=== PATIENT | male | born 1945 | race Caucasian/White ===

== ENCOUNTER → 2018-04-07 09:48 | Outpatient (CLI) | payer MEDICARE, OTHER, SELFPAY ==
[2018-04-07 11:37] LABS: Add Manual Diff / Slide Review NO; Basophils Percent Auto 0.6 % (0-2); Eosinophils Percent Auto 3.8 % (2-4); Hematocrit 38.2 % (41-53); Hemoglobin 13.3 g/dL (13.5-17.5); Lymphocytes Percent Auto 17.3 % (25-40); Mean Corpuscular HGB Conc 34.9 % (30-36); Mean Corpuscular Hemoglobin 32.7 PG (26-34); Mean Corpuscular Volume 93.7 fL (80-100); Monocytes Percent Auto 12.1 % (3-14); Neutrophils Absolute Auto 3900 /uL (3000-5900); Neutrophils Percent Auto 66.2 % (50-75); Platelet Count 231 X10^3/uL (150-400); Red Blood Cell Count 4.07 X10^6/uL (4.5-5.9); Red Cell Distribution Width 12.9 % (11.6-14.8); White Blood Cell Count 5.8 X10^3/uL (4.5-11.0)
[2018-04-07 12:09] LABS: Alanine Aminotransferase 324 IU/L (21-72); Albumin 4.1 g/dL (3.5-5.0); Albumin Globulin Ratio 1.1 (1.0-2.8); Alkaline Phosphatase 44 U/L (38-126); Aspartate Aminotransferase 252 IU/L (17-59); BUN Creatinine Ratio 19.2 (6-22); Bilirubin Total 1.2 mg/dL (0.2-1.3); Blood Urea Nitrogen 23 mg/dL (9-20); Carbon Dioxide 28 mmol/L (22-32); Chloride 98 mmol/L (98-107); Estimated Glomerular Filt Rate 59.2 mL/min (>60); Globulin 3.6 g/dL (1.7-4.1); Glucose 97 mg/dL (80-110); HEMOLYSIS < 15 (0-50); Potassium 4.6 mmol/L (3.4-5.1); Sodium 135 mmol/L (137-145); Total Protein 7.7 g/dL (6.3-8.2)
[2018-04-07 12:53] LABS: Vitamin B12 695 pg/mL (239-931)
== END ==
PROVIDERS: Visit Provider Internal Medicine
DX: I10 Essential (primary) hypertension (principal); D51.0 Vitamin B12 deficiency anemia due to intrinsic factor deficiency
CPT/HCPCS: 36415; 80053; 82607; 85025

== ENCOUNTER → 2018-05-10 14:44 | Outpatient (CLI) | payer MEDICARE, OTHER, SELFPAY ==
[2018-05-10 15:38] LABS: HEMOLYSIS < 15 (0-50); Iron 129 ug/dL (49-181)
[2018-05-10 15:39] LABS: Alanine Aminotransferase 139 IU/L (21-72); Albumin 4.5 g/dL (3.5-5.0); Albumin Globulin Ratio 1.3 (1.0-2.8); Alkaline Phosphatase 50 U/L (38-126); Aspartate Aminotransferase 64 IU/L (17-59); Bilirubin Total 0.8 mg/dL (0.2-1.3); Blood Urea Nitrogen 19 mg/dL (9-20); Calcium 9.5 mg/dL (8.4-10.2); Carbon Dioxide 25 mmol/L (22-32); Chloride 99 mmol/L (98-107); Estimated Glomerular Filt Rate > 60.0 mL/min (>60); Globulin 3.6 g/dL (1.7-4.1); Glucose 110 mg/dL (80-110); HEMOLYSIS < 15 (0-50); Potassium 4.4 mmol/L (3.4-5.1); Sodium 136 mmol/L (137-145); Total Protein 8.1 g/dL (6.3-8.2)
[2018-05-10 15:51] LABS: Percent Iron Saturation 38 % (20-50); Total Iron Binding Capacity 336 ug/dL (261-462); Transferrin 264 mg/dL (206-381)
[2018-05-10 16:14] LABS: Ferritin 51.7 ng/mL (17.9-464)
[2018-05-10 19:09] LABS: Hep C Virus Ab w/Reflex Quant NEGATIVE s/c (NEGATIVE); Hepatitis B Surface Antigen NEGATIVE s/c (NEGATIVE)
[2018-05-12 13:51] LABS: Hepatitis A Ab Total Nonreactive (Nonreactive)
[2018-05-12 13:57] LABS: Hepatitis B Core Antibody Nonreactive (Nonreactive)
[2018-05-12 15:24] LABS: Hepatitis B Surf Ab Qualitativ Nonreactive (Nonreactive)
== END ==
PROVIDERS: Visit Provider Internal Medicine
DX: R94.5 Abnormal results of liver function studies (principal); R79.9 Abnormal finding of blood chemistry, unspecified
CPT/HCPCS: 36415; 80053; 82728; 83540; 83550; 86704; 86706; 86803; 87340

== ENCOUNTER → 2018-10-30 08:57 | Outpatient (CLI) | payer MEDICARE, OTHER, SELFPAY ==
[2018-10-30 11:13] LABS: Prostate Specific Antigen 0.377 ng/mL (0.10-4.00)
== END ==
PROVIDERS: Visit Provider Specialist
DX: N40.0 Benign prostatic hyperplasia without lower urinary tract symptoms (principal)
CPT/HCPCS: 36415; 84153

== ENCOUNTER → 2018-11-01 09:00 | Outpatient (CLI) | payer MEDICARE, OTHER, SELFPAY ==
--- NOTE | 2018-11-01 | DI.RAD.S_ITS ---
PROCEDURE: XR CHEST 2V INDICATIONS: COUGH TECHNIQUE: 2 views of the chest were acquired. COMPARISON: [facility], CT, CHEST/ABD/PEL WITH CONTRAST, 05/18/2012, 15:16. [facility], RG, XR CXR 1V, 10/16/2005, 14:01. FINDINGS: Surgical changes and devices: None. Lungs and pleura: Lungs are clear except for minimal stranding at the retrocardiac left lung base. No pleural effusions or pneumothorax. Mediastinum: Mediastinal contours are normal. Heart size is normal. Bones and chest wall: No suspicious acute appearing bony abnormalities but there is what appears to be a compression fracture at the thoracolumbar junction seen on the lateral view only, not clearly present on the prior CT scan in 05/19. The comparison study showed a slight wedge type compression fracture in this area, but currently appears slightly more prominent. Osteoporotic etiology is the likely cause. Soft tissues appear unremarkable. IMPRESSION: Minimal stranding at each lung base but best seen at the left lower lobe behind the heart. Very mild or early pneumonia could produce this appearance. Mild focal kyphosis at the thoracolumbar junction associated with mild interval worsening of 2 adjacent compression fractures at that area, better seen by current plain film than on the old CT from May 2012. Dictated by: Alex Azul M.D. on 11/01/2018 at 9:38 Approved by: Alex Azul M.D. on 11/01/2018 at 9:41
== END ==
PROVIDERS: PCP Internal Medicine; Visit Provider Internal Medicine
DX: R05 Cough (principal); M48.55XA Collapsed vertebra, not elsewhere classified, thoracolumbar region, initial encounter for fracture
CPT/HCPCS: 71046

== ENCOUNTER → 2018-11-24 07:55 | Outpatient (CLI) | payer MEDICARE, OTHER, SELFPAY ==
[2018-11-24 08:39] LABS: Add Manual Diff / Slide Review NO; Basophils Absolute Auto 0 /uL (0-100); Basophils Percent Auto 0.5 % (0-2); Eosinophils Absolute Auto 100 /uL (0-450); Eosinophils Percent Auto 2.2 % (2-4); Hematocrit 40.7 % (41-53); Hemoglobin 13.9 g/dL (13.5-17.5); Lymphocytes Absolute Auto 1300 /uL (1100-4500); Mean Corpuscular HGB Conc 34.2 % (30-36); Mean Corpuscular Hemoglobin 31.8 PG (26-34); Mean Corpuscular Volume 93.1 fL (80-100); Monocytes Absolute Auto 600 /uL (0-900); Monocytes Percent Auto 8.3 % (3-14); Neutrophils Absolute Auto 4600 /uL (1500-7000); Platelet Count 243 X10^3/uL (150-400); Red Blood Cell Count 4.37 X10^6/uL (4.5-5.9); Red Cell Distribution Width 13.5 % (11.6-14.8); White Blood Cell Count 6.7 X10^3/uL (4.5-11.0)
[2018-11-24 08:48] LABS: Alanine Aminotransferase 51 IU/L (21-72); Albumin 4.5 g/dL (3.5-5.0); Albumin Globulin Ratio 1.3 (1.0-2.8); Alkaline Phosphatase 49 U/L (38-126); Aspartate Aminotransferase 54 IU/L (17-59); Blood Urea Nitrogen 17 mg/dL (9-20); Calcium 9.3 mg/dL (8.4-10.2); Carbon Dioxide 25 mmol/L (22-32); Chloride 100 mmol/L (98-107); Estimated Glomerular Filt Rate > 60.0 mL/min (>60); Globulin 3.5 g/dL (1.7-4.1); Glucose 94 mg/dL (80-110); HEMOLYSIS < 15 (0-50); Potassium 4.4 mmol/L (3.4-5.1); Sodium 136 mmol/L (137-145)
== END ==
PROVIDERS: PCP Internal Medicine; Visit Provider Internal Medicine
DX: D63.8 Anemia in other chronic diseases classified elsewhere (principal); R94.5 Abnormal results of liver function studies
CPT/HCPCS: 36415; 80053; 85025

== ENCOUNTER → 2018-12-11 09:15 | Outpatient (CLI) | payer MEDICARE, OTHER, SELFPAY ==
--- NOTE | 2018-12-11 | DI.US.S_ITS ---
PROCEDURE: US ABD AORTA ANEURYSM SCREEN INDICATIONS: AAA SCREENING TECHNIQUE: Real time scanning was performed of the aorta and iliac arteries, with image documentation. COMPARISON: None. FINDINGS: Aorta: Proximal aortic is not seen. Mid-aorta measures 1.7 cm. Distal aortic diameter is 1.6 cm. Iliac arteries: Right common iliac artery measures 1 cm. Left common iliac artery measures 0.8 cm. IMPRESSION: Negative for aneurysm. Dictated by: Raúl Chandra M.D. on 12/11/2018 at 9:41 Approved by: Raúl Chandra M.D. on 12/11/2018 at 9:42
== END ==
PROVIDERS: PCP Internal Medicine; Visit Provider Internal Medicine
DX: Z13.6 Encounter for screening for cardiovascular disorders (principal)
CPT/HCPCS: 76706

== ENCOUNTER 2019-02-19 10:03 | Observation (INO) | payer MEDICARE, OTHER, SELFPAY ==
[2019-02-19] VITALS (9 sets, daily range): BP systolic 129–179; BP diastolic 71–86; PULSE 50–79; RESP 13–18; TEMP 36.3–36.8; O2SAT 95–99; BMI 29.0
--- NOTE | 2019-02-19 10:26 | DI.CT.S_ITS ---
PROCEDURE: CT HEAD/BRAIN WO CON INDICATIONS: TIA symptoms yesterday TECHNIQUE: Noncontrast 4.5 mm thick angled axial sections acquired from the foramen magnum to the vertex, with coronal and sagittal reformats. For radiation dose reduction, the following was used: automated exposure control, adjustment of mA and/or kV according to patient size. COMPARISON: [facility], CT, HEAD WITHOUT CONTRAST, 05/18/2012, 15:16. FINDINGS: Image quality: Excellent. CSF spaces: Basal cisterns are patent. No extra-axial fluid collections. Ventricles are normal in size and shape. Brain: No midline shift. No intracranial masses or hemorrhage. Blank-white matter interface is normal. Mild small vessel ischemic change. Skull and face: Calvarium and visualized facial bones are intact, without suspicious lesions. Sinuses: Visualized sinuses and mastoids are clear. IMPRESSION: 1. Mild small vessel ischemic change. 2. No evidence acute stroke, hemorrhage, or mass. Dictated by: Isauro Spence M.D. on 02/19/2019 at 10:36 Approved by: Isauro Spence M.D. on 02/19/2019 at 10:37
[2019-02-19 10:44] LABS: Add Manual Diff / Slide Review NO; Basophils Absolute Auto 0 /uL (0-100); Basophils Percent Auto 0.5 % (0-2); Eosinophils Absolute Auto 100 /uL (0-450); Eosinophils Percent Auto 0.7 % (2-4); Hematocrit 40.6 % (41-53); Hemoglobin 13.9 g/dL (13.5-17.5); Lymphocytes Absolute Auto 1300 /uL (1100-4500); Lymphocytes Percent Auto 15.3 % (25-40); Mean Corpuscular HGB Conc 34.4 % (30-36); Mean Corpuscular Hemoglobin 32.1 PG (26-34); Mean Corpuscular Volume 93.6 fL (80-100); Monocytes Absolute Auto 600 /uL (0-900); Monocytes Percent Auto 7.7 % (3-14); Neutrophils Absolute Auto 6200 /uL (1500-7000); Neutrophils Percent Auto 75.8 % (50-75); Platelet Count 262 X10^3/uL (150-400); Red Blood Cell Count 4.34 X10^6/uL (4.5-5.9); Red Cell Distribution Width 12.6 % (11.6-14.8); White Blood Cell Count 8.2 X10^3/uL (4.5-11.0)
--- NOTE | 2019-02-19 10:44 | ED.NEUROSD ---
HPI - Neuro Symptoms/Deficit General Chief Complaint: Neuro Symptoms/Deficit Stated Complaint: Thinks he had TIA last night Time Seen by Provider: 02/19/19 10:20 Source: patient Mode of arrival: ambulatory Limitations: no limitations History of Present Illness HPI Narrative: Patient is a 73-year-old male who stated that for the past couple days he has felt off but did not think much of it. Did not have any specific complaints. States that last night at approximately 1100 hours he was using the restroom and when he was done he noticed that he was having a heavy and tingling sensation to his left upper and lower extremity. Denies any other symptoms at the time. He states that he did not have any coordination issues or weakness on his left side. He states the symptoms lasted less than 10 minutes and then completely resolved. 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 He states the last time these were checked for approximately 10 years ago. Him into the emergency department this morning for evaluation. On Anticoagulants: Yes Related Data Home Medications Medication Instructions Recorded Confirmed clonidine HCl [Catapres] 0.2 mg PO BID #0 08/13/11 02/19/19 aspirin 162.5 mg PO DAILY 02/19/19 02/19/19 clopidogrel 75 mg PO QPM 02/19/19 02/19/19 diltiazem HCl 240 mg PO DAILY 02/19/19 02/19/19 losartan 50 mg PO BID 02/19/19 02/19/19 tamsulosin 0.4 mg PO QPM 02/19/19 02/19/19 Allergies Allergy/AdvReac Type Severity Reaction Status Date / Time tamsulosin [TAMSULOSIN] Allergy Unknown dizziness Unverified 11/16/17 12:02 From FLOMAX Allergy Unknown DIZZINESS Uncoded 11/16/17 12:02 Review of Systems Constitutional Denies fever(s), Denies headache(s) and Denies weakness Eyes Denies blurry vision, Denies change in vision and Denies loss of vision ENT Ears, Nose, Mouth, and Throat: Denies vertigo, Denies dizziness, Denies headache(s) and Reports disequilibrium Cardiovascular Denies chest pain, Denies palpitations and Denies dyspnea Respiratory Denies cough and Denies dyspnea Gastrointestinal Gastrointestinal: Denies abdominal pain, Denies nausea and Denies vomiting Genitourinary Denies dysuria Musculoskeletal Reports tingling Comments: Left-sided arm and leg heaviness Integumentary/Breasts Denies lesions and Denies rash Neurologic Denies behavioral changes, Denies burning sensations, Denies confusion, Denies vertigo, Denies dizziness, Denies headache(s), Denies focal weakness, Denies loss of vision, Denies convulsions, Reports tingling, Reports paresthesias, Reports disequilibrium and Denies weakness Psychiatric Denies behavioral changes and Denies confusion Endocrine Denies palpitations Hematologic/Lymphatic Denies easy bleeding and Denies easy bruising FOR[facility] Medical History BPH (benign prostatic hyperplasia) (Acute) Hyperlipidemia (Acute) Hypertension (Acute) Social History lives independently: Yes Social History lives independently: Yes Exam Initial Vital Signs Initial Vital Signs: Vital Signs Temperature 97.6 F 02/19/19 10:05 Pulse Rate 79 02/19/19 10:05 Respiratory Rate 13 02/19/19 10:05 Blood Pressure 179/86 H 02/19/19 10:05 Pulse Oximetry 99 02/19/19 10:05 Const General: cooperative, comfortable, well developed, well groomed and No acute distress Orientation: alert, awake and oriented x3 HENMT Head: normal to inspection and normocephalic Resp Effort & Inspection: normal respiratory effort Auscultation: clear to auscultation bilaterally Cardio Rate: regular rate Rhythm: regular rhythm Pulses: radial pulses present GI Inspection: non-distended Palpation: soft, No firm and No tender Skin Lesions: no lesions Rashes: no rashes Neuro General: alert, awake and oriented x3 Cranial Nerves: CN's II-XI intact bilaterally Cognition: normal cognition Speech: speech normal Gait: normal gait Motor: muscle tone normal throughout Sensory Exam: no sensory deficits noted Coordination: [id number] test normal Extrem General: normal to inspection and capillary refill normal Scores GCS Jarvis coma scale eye opening: Spontaneous Goehner coma scale verbal response: Orientated Jarvis coma scale motor response: Obey commands Goehner coma scale total score: 15 NIH Stroke Scale Level of Conciousness: Alert, keenly responsive Ask month/age: Answers both questions correctly. Open/close eyes, close hand: Performs both tasks correctly Best gaze horizontal: Normal Visual orr: No visual loss Facial palsy: Normal symetrical movement Left arm drift: No drift for full 10 sec Right arm drift: No drift for full 10 sec Left leg drift: No drift for full 10 sec Right leg drift: No drift for full 10 sec Limb ataxia: Absent Sensory on face/arms/legs: Normal, no sensory loss Best language: No aphasia, normal Dysarthria: Normal Extinction or inattention: No abnormality Total NIH Stroke scale score: 0 Course Orders Ordered: ED Orders 02/19/19 10:17 EKG-12 Lead Stat 02/19/19 10:26 CT head/brain wo con Stat 02/19/19 10:36 Complete Blood Count AUTO DIFF Stat Comprehensive Metabolic Panel Stat Hemoglobin A1C% w Est Avg Glu Routine Lipase Stat Lipid Panel Routine Partial Thromboplastin Time Stat Prothrombin Time INR Stat 02/19/19 11:41 Education, smoking cessation ONGOING 02/19/19 11:44 Consult to Discharge Planning Routine Consult to Occupational Therapy Evaluate & Treat 02/19/19 11:45 Consult to Physical Therapy Evaluate & Treat MR stroke Urgent 02/19/19 11:46 EC echo doppler complete Urgent Acetaminophen (Tylenol) 650 mg PO Q6HR PRN PRN Reason: As Needed for Fever/Mild Pain Al Hydrox/Mg Hydrox/Simethicone (Maalox Plus) 30 ml PO Q6HR PRN PRN Reason: Dyspepsia Bisacodyl (Dulcolax) 10 mg OK DAILY PRN PRN Reason: Constipation Calcium Carbonate (Tums) 1,000 mg PO Q4HR PRN PRN Reason: Dyspepsia Heparin Sodium (Porcine) (Heparin) 5,000 unit SUBCUT BID LAZARO Sodium Chloride (Normal Saline 0.9%) 1,000 mls @ 100 mls/hr IV CONT LAZARO Magnesium Hydroxide (Milk Of Magnesia) 30 ml PO DAILY PRN PRN Reason: Constipation Ondansetron HCl (Zofran) 4 mg IV Q8HR PRN PRN Reason: Nausea And Vomiting Discontinued Medications Aspirin (Aspirin Chew) 324 mg PO NOW ONE Stop: 02/19/19 10:56 Last Admin: 02/19/19 11:45 Dose: 324 mg Vital Signs - 8 hr 02/19/19 10:05 02/19/19 10:22 02/19/19 11:00 Temperature 97.6 F 97.6 F Pulse Rate 79 68 55 L Respiratory Rate 13 15 13 Blood Pressure 179/86 H Blood Pressure [Left Arm] 151/82 H 141/79 H Pulse Oximetry 99 97 95 02/19/19 12:00 Temperature Pulse Rate 65 Respiratory Rate 14 Blood Pressure Blood Pressure [Left Arm] 140/80 Pulse Oximetry 97 MDM - Neuro Symptoms/Deficit Lab Data Attestation: I reviewed the patient's lab results. Result diagrams: 02/19/19 10:36 02/19/19 10:36 Lab Results 02/19/19 02/19/19 02/19/19 Range/Units 10:36 10:36 10:36 WBC 8.2 (4.5-11.0) X10^3/uL RBC 4.34 L (4.5-5.9) X10^6/uL Hgb 13.9 (13.5-17.5) g/dL Hct 40.6 L (41-53) % MCV 93.6 (80-100) fL MCH 32.1 (26-34) PG MCHC 34.4 (30-36) % RDW 12.6 (11.6-14.8) % Plt Count 262 (150-400) X10^3/uL Neut % (Auto) 75.8 H (50-75) % Lymph % (Auto) 15.3 L (25-40) % Hill % (Auto) 7.7 (3-14) % Eos % (Auto) 0.7 L (2-4) % Baso % (Auto) 0.5 (0-2) % Neut # (Auto) 6200 (1715-8406) /uL Lymph # (Auto) 1300 (2574-6344) /uL Hill # (Auto) 600 (0-900) /uL Eos # (Auto) 100 (0-450) /uL Baso # (Auto) 0 (0-100) /uL PT 12.8 H (10.1-12.7) SECONDS INR 1.1 (0.9-1.3) APTT 31 (26.4-36.2) SECONDS Sodium 135 L (137-145) mmol/L Potassium 4.1 (3.4-5.1) mmol/L Chloride 100 (98-107) mmol/L Carbon Dioxide 24 (22-32) mmol/L BUN 17 (9-20) mg/dL Creatinine 1.00 (0.66-1.25) mg/dL Estimated GFR > 60.0 (>60) mL/min BUN/Creatinine Ratio 17.0 (6-22) Glucose 107 (80-110) mg/dL Calcium 9.6 (8.4-10.2) mg/dL Total Bilirubin 1.0 (0.2-1.3) mg/dL AST 71 H (17-59) IU/L ALT 124 H (21-72) IU/L Alkaline Phosphatase 62 (38-126) U/L Total Protein 8.1 (6.3-8.2) g/dL Albumin 4.5 (3.5-5.0) g/dL Globulin 3.6 (1.7-4.1) g/dL Albumin/Globulin Ratio 1.3 (1.0-2.8) Lipase 92 (23-300) U/L Imaging Data CT scan - head: Radiologist's impression: [address] [address] [address] Scan Report Signed Patient: Arun Barajas FMR#: [id number] : 4Acct:[id number] Age/Sex: 73 / MDate of Service: 02/19/19 Loc: ED Accession Number: [id number] Procedure: CT head/brain wo con Ordering Provider: Ramiro Reyes D.O. PROCEDURE: CT HEAD/BRAIN WO CON INDICATIONS: TIA symptoms yesterday TECHNIQUE: Noncontrast 4.5 mm thick angled axial sections acquired from the foramen magnum to the vertex, with coronal and sagittal reformats. For radiation dose reduction, the following was used: automated exposure control, adjustment of mA and/or kV according to patient size. COMPARISON: [facility], CT, HEAD WITHOUT CONTRAST, 05/18/2012, 15:16. FINDINGS: Image quality: Excellent. CSF spaces: Basal cisterns are patent. No extra-axial fluid collections. Ventricles are normal in size and shape. Brain: No midline shift. No intracranial masses or hemorrhage. Blank-white matter interface is normal. Mild small vessel ischemic change. Skull and face: Calvarium and visualized facial bones are intact, without suspicious lesions. Sinuses: Visualized sinuses and mastoids are clear. IMPRESSION: 1. Mild small vessel ischemic change. 2. No evidence acute stroke, hemorrhage, or mass. Dictated by: Isauro Spence M.D. on 02/19/2019 at 10:36 ECG Data Attestation: I personally reviewed and interpreted this ECG as follows: Prior ECG tracings: not available for review Interpretation: Sinus rhythm Ventricular rate is 64 Left axis deviation Normal QRS Normal QTC No ST T wave changes MDM Narrative Medical decision making narrative: Patient is asymptomatic here in the emergency department. His symptoms are concerning for TIA especially in the setting of known carotid artery blockages. We did discuss options to include outpatient workup versus being admitted to the hospital on the patient opted to be admitted to the hospital. Discussed the case with with Internal Medicine who will admit for further evaluation and treatment. Patient was given aspirin here in the ER. Patient was informed of the admission. He expressed understanding and agreement. Discharge Plan Departure Patient Disposition: Admitted as Observation Clinical Impression: Transient cerebral ischemia Qualifiers: Transient cerebral ischemia type: unspecified Qualified Code(s): G45.9 - Transient cerebral ischemic attack, unspecified Admit Date/Time: 02/19/19 11:39 Admit Provider: Antonia Arambula
[2019-02-19 10:49] LABS: INR 1.1 (0.9-1.3); Prothrombin Time 12.8 SECONDS (10.1-12.7)
[2019-02-19 10:52] LABS: PTT Partial Thromboplastin Tim 31 SECONDS (26.4-36.2)
[2019-02-19 10:57] LABS: Alanine Aminotransferase 124 IU/L (21-72); Albumin 4.5 g/dL (3.5-5.0); Albumin Globulin Ratio 1.3 (1.0-2.8); Alkaline Phosphatase 62 U/L (38-126); Aspartate Aminotransferase 71 IU/L (17-59); Blood Urea Nitrogen 17 mg/dL (9-20); Calcium 9.6 mg/dL (8.4-10.2); Carbon Dioxide 24 mmol/L (22-32); Chloride 100 mmol/L (98-107); Estimated Glomerular Filt Rate > 60.0 mL/min (>60); Globulin 3.6 g/dL (1.7-4.1); Glucose 107 mg/dL (80-110); HEMOLYSIS 22 (0-50); Lipase 92 U/L (23-300); Potassium 4.1 mmol/L (3.4-5.1); Sodium 135 mmol/L (137-145); Total Protein 8.1 g/dL (6.3-8.2)
[2019-02-19] MEDS: ASPIRIN 81 MG TAB 324 MG PO (11:45)
--- NOTE | 2019-02-19 11:45 | DI.MRI.S_ITS ---
PROCEDURE: MR STROKE Pre- and post-contrast brain MRI, non-contrast brain MR angiogram, pre- and postcontrast neck MR angiogram INDICATIONS: left sided numbness/tingling, discoordination TECHNIQUE: Brain: Noncontrast axial T1 spin echo, axial T2 fast spin echo, sagittal and axial FLAIR, coronal T2 fast spin echo, axial gradient echo, axial diffusion and ADC through the brain. After the administration of contrast, axial 3D VIBE of the cranial vasculature and brain. Brain MRA: Non-contrast 3-D time of flight MR angiogram, with multiple rvegkxm-ugucozjwy-bjuxmxaohk (MIP) reformats performed. Neck MRA: Axial and sagittal TruFISP through the neck. Coronal dynamic MR angiogram during administration of contrast in the arterial and venous phases, with 3-dimenstional lzewreo-boyxfxmie-nwjhagpmhz (MIP) reformats constructed from subtraction images. COMPARISON: [facility], MR, STROKE PROTOCOL, 04/15/2012, 16:36. FINDINGS: Image quality: Excellent. BRAIN: CSF spaces: Ventricles are normal in size and shape. Basal cisterns are patent. No extra-axial fluid collections. Brain: No intracranial bleeds or mass effects. Blank-white matter interface is normal. Diffusion weighted images show no acute ischemic insults. The liver volume loss and mild small vessel ischemic change, slightly increased from the prior study. Brainstem appears normal. Normal intravascular flow voids are present. No abnormal intracranial enhancement. Skull and face: Calvarial marrow signal is normal. Orbits appear normal. Sinuses: Sinuses and mastoids are clear. BRAIN MR ANGIOGRAM: No stenoses or aneurysms or occlusions. NECK MR ANGIOGRAM: Carotids: Great vessels demonstrate a conventional anatomy as they arise from the aortic arch. The origins of the common carotid arteries appear patent. An origin left internal carotid artery stenosis is not significantly changed, in the neighborhood of 65-70%. In origin right internal carotid artery stenosis may be slightly progressed, in the order of approximately 60%. Posterior circulation: The origins of the vertebral arteries appear patent. More superior portions of both vertebral arteries demonstrate normal course and caliber, and join to form a normal appearing basilar artery. Miscellaneous: Subclavian arteries appear patent. Pre-contrast images through the neck show no soft tissue abnormalities. IMPRESSION: BRAIN MRI: 1. No acute stroke, hemorrhage, or mass. 2. Age related volume loss and mild small vessel ischemic change, mildly progressed from the prior study BRAIN MR ANGIOGRAM: Unremarkable, with no evidence of aneurysm, stenosis, or occlusion NECK MR ANGIOGRAM: Mild interval increase in right internal carotid artery stenosis, and the neighborhood of approximately 60%. Stable left internal carotid artery stenosis, measuring between 65 and 70%. Comment: Stenosis measurements are based on NASCET criteria Dictated by: Isauro Spence M.D. on 02/19/2019 at 15:37 Approved by: Isauro Spence M.D. on 02/19/2019 at 15:50
--- NOTE | 2019-02-19 11:46 | DI.ECHO.S_ITS ---
[facility] +---------+ : : [address] : : : : [id number] : : : : Phone: [phone] Echocardiogram Report + + :Name: CRISTOFER JASSO Study Date: 02/19/2019 Height: 69 in : :[facility] Weight: 198 lb : : Gender: Male BSA: 2.1 m2 : :: 1945 Age: 73 yrs BP: 132/86 mmHg: :Reason For Study: TIA : : Performed By: Loren Moran : :Referring: MALOU AGUILAR : + + Interpretation Summary 1) Normal left ventricular thickness, size, wall motion, and systolic function (EF 60-65%). 2) Normal right ventricular size and function. 3) No significant valvular abnormalities. 4) A patent foramen ovale is present based on color doppler assessment. 5) No prior Echo available for comparison. Procedure: A two-dimensional transthoracic echocardiogram with color flow and Doppler was performed. The study quality was technically adequate. There is no prior echocardiogram noted for this patient. The patient was in normal sinus rhythm during the exam. Left Ventricle: The left ventricle is normal in size, wall thickness, and systolic function without any focal wall motion abnormalities. The ejection fraction is estimated to be 60-65%. Diastolic parameters suggest a relaxation abnormality of the left ventricle, consistent with probable normal filling pressures. Right Ventricle: The right ventricle grossly appears normal in size with probable normal systolic function. Atria: The left atrium is mildly dilated. Right atrial size is normal. A patent foramen ovale is present. Mitral Valve: The mitral valve is normal in structure and function. There is trace mitral regurgitation. Aortic Valve: The aortic valve is trileaflet. The aortic valve opens well. There is no aortic valve stenosis. There is trace aortic regurgitation. Tricuspid Valve: The tricuspid valve is normal in structure and function. There is trace tricuspid regurgitation. The right ventricular systolic pressure is estimated to be at least 25 mmHg based on an estimated right atrial pressure of 3 mm Hg. Pulmonic Valve: The pulmonic valve is normal in structure and function. There is trace pulmonic regurgitation. Great Vessels: The aortic root is mildly dilated. The ascending aorta is at the upper limits of normal in size. The aortic arch is normal in size. The IVC is of normal diameter and collapses greater than 50% with a sniff. This suggests a low right atrial pressure of 3 mm Hg. Pericardium/ Pleura There is no pericardial effusion. There is no pleural effusion. MMode/2D Measurements & Calculations LVIDd: 4.5 cm Ao root diam: 3.9 cm LVIDs: 2.5 cm Aortic Jxn: 2.6 cm FS: 44.4 % asc Aorta Diam: 3.7 cm EPSS: 0.47 cm Ao Arch Diam (Prox Trans): 2.7 cm IVSd: 1.1 cm LVPWd: 1.00 cm LV mace. diameter/BSA (cm/m^2): 2.2 LV sys. diameter/BSA (cm/m^2): 1.2 LA dimension: 4.2 cm RA long axis: 5.6 cm LA A2 area: 21.1 cm2 RA area: 16.3 cm2 LA A4 area: 19.6 cm2 RA vol: 40.3 ml LA length (vol): 5.1 cm RA : 19.6 ml/m2 LA vol: 68.3 ml IVC diam: 1.6 cm LA vol index: 33.2 ml/m2 RVDd major: 6.2 cm RVD1 (basal): 3.5 cm RVD2 (mid): 2.6 cm Doppler Measurements & Calculations Ao V2 max: 133.4 cm/sec MV E max adam: 78.5 cm/sec Ao V2 mean: 81.1 cm/sec MV A max adam: 81.2 cm/sec Ao max P.1 mmHg MV E/A: 0.97 Ao mean P.2 mmHg Med Peak E' Adam: 5.3 cm/sec Ao V2 VTI: 31.0 cm E/E' med: 14.9 Lat Peak E' Adam: 7.7 cm/sec E/E' lat: 10.2 E/e' average: 12.6 MV dec time: 0.24 sec MV P1/2t: 71.7 msec TR max adam: 232.9 cm/sec MV P1/2t max adam: 79.8 cm/sec TR max P.7 mmHg MVA(P1/2t): 3.1 cm2 PA V2 max: 75.1 cm/sec PA V2 mean: 45.2 cm/sec PA mean P.0 mmHg PA Accel Time: 0.14 sec Reading Physician:03:12 PM
[2019-02-19 12:21] LABS: Hemoglobin A1C% w Est Avg Glu 5.4 % (4.0-6.0)
[2019-02-19 13:10] LABS: Cholesterol 155 mg/dL (140-199); HDL Cholesterol 36 mg/dL (40-60); LDL Cholesterol Calculated 104 mg/dL (<100); Triglycerides 77 mg/dL (35-150)
[2019-02-19] MEDS: SODIUM CHLORIDE 0.9% 1,000 ML 100 ML IV (15:35)
--- NOTE | 2019-02-19 15:45 | PC.NURSE ---
Addendum entered by Emiliana Lew R.N. 02/19/19 21:55: Pt's HR 43 bpm, tele alarming. Pt observed sleeping. Wakes to loud voice as he is [place]. He is Ox3, NIH = zero. I discussed Dr's orders with him, he said well I don't need anything more tonight--I just took my medication. I talked to him about hospital protocols about medications, he is aware that he cannot have any of his own meds in room and that he should not take anything unless the Dr has ordered it for him. I told him this is a safety issue. I clarified with him what he took, he said I took my losartan, clonodine & clopidigrel. He said the last dose of Diltiazem he took was this morning. I talked to him about his low HR. He denies having any pill bottles in room, saying my took them home. I notified Jim RODRÍGUEZ about bradycardia & BP 129/71. I also told her that patient took own medications. Addendum entered by Emiliana Lew R.N. 02/19/19 18:47: Neuro: denies weakness to extremities, manager of global equal. Speech remains clear. NIH= zero. Denies nausea or pain after eating meal. Visiting with spouse at bedside. Encouraged him to call staff for any needs or concerns. Original Note: Evening note: Arun back from MRI. VS stable, RA oxygen 96% He is Ox3, speech clear. IV NS infusing at 100 ml/hour, IV. Pt requesting to eat lunch at this time.
--- NOTE | 2019-02-19 17:46 | PM.HP.1 ---
History of Present Illness Date Patient Seen: 02/19/19 Chief complaint: Thinks he had TIA last night Narrative: Arun Barajas is a 73-year-old male with a past medical history significant for hypertension, hyperlipidemia, atherosclerotic arterial disease with history of renal artery stenosis status post stent placement, BPH status post TURP and urethral/bladder dilatation who presented for left-sided numbness and tingling, heaviness, and disequilibrium/ discoordination with walking. The patient reports that at approximately 11:00 p.m. last night he began having numbness and tingling of the left side of his body. He had associated heaviness but does not endorse any weakness. He also noticed he felt discoordinated with walking and disequilibrium. He reports his symptoms had resolved by 12:00 a.m.. He has never had this before. He has no other symptoms and denies headache, lightheadedness or dizziness, vision changes including blurriness or double vision, facial droop or slurred speech,chest pain, shortness of breath, abdominal pain, nausea, vomiting, fever, chills, dysuria, diarrhea or constipation. He endorses chronic symptoms including urinary hesitancy and weak stream related to BPH. he also has intermittent epigastric pain that comes and goes and is occasional. He has no other complaints. He is admitted for TIA rule out. Patient History Medical History Atherosclerosis (Acute) BPH (benign prostatic hyperplasia) (Acute) History of stent insertion of renal artery (Acute) Hyperlipidemia (Acute) Hypertension (Acute) Renal artery stenosis (Acute) Surgical History S/P TURP (Acute) Family History (Updated 02/19/19 @ 18:55 by Antnoia Arambula DO) Father CVA (cerebral vascular accident) Mother COPD (chronic obstructive pulmonary disease) Sister Adopted Social History household members: spouse lives independently: Yes Smoking Status: Former smoker alcohol intake: never Family & Social History Family History Father CVA (cerebral vascular accident) Mother COPD (chronic obstructive pulmonary disease) Sister Adopted Social History: household members spouse Prior Living Arrangements House lives independently Yes Safety & Behavioral: Feels Safe in Current Yes Environment Been Physically Hurt or No Threatened By a Person Tobacco & Substance use: Smoking Status Former smoker quit 25 years ago, 2 ppd x 30 years alcohol intake Former. Previous history of heavy alcohol consumption. Substance Use Type does not use Meds Home Medications Medication Instructions Recorded Confirmed Type clonidine HCl [Catapres] 0.2 mg PO BID #0 08/13/11 02/19/19 History aspirin 162.5 mg PO DAILY 02/19/19 02/19/19 History clopidogrel 75 mg PO QPM 02/19/19 02/19/19 History diltiazem HCl 240 mg PO DAILY 02/19/19 02/19/19 History losartan 50 mg PO BID 02/19/19 02/19/19 History tamsulosin 0.4 mg PO QPM 02/19/19 02/19/19 History Allergies Allergy/AdvReac Type Severity Reaction Status Date / Time tamsulosin [TAMSULOSIN] Allergy Unknown dizziness Unverified 11/16/17 12:02 From FLOMAX Allergy Unknown DIZZINESS Uncoded 11/16/17 12:02 Review of Systems Review of Systems A 10 system comprehensive review of systems was conducted with the patient and found to be negative except as above in the History of Present Illness. Exam Vital Signs (past 8 hours): - 02/19/19 11:00 02/19/19 12:00 02/19/19 12:37 Temperature 97.3 F L Pulse Rate 55 L 65 52 L Respiratory Rate 13 14 13 Blood Pressure 139/80 Blood Pressure [Left Arm] 141/79 H 140/80 Pulse Oximetry 95 97 02/19/19 12:40 02/19/19 12:45 02/19/19 15:35 Temperature 98.2 F 97.5 F L Pulse Rate 51 L 50 L 70 Respiratory Rate 16 14 18 Blood Pressure 132/86 144/83 H Blood Pressure [Left Arm] 139/80 Pulse Oximetry 97 96 95 Oxygen Delivery Method Room Air Narrative Exam Narrative: General: Elderly gentleman sitting in bed and in no acute distress, well-developed, well-nourished, appropriately interactive. HEENT: Normocephalic, atraumatic. External ears without defect. Pupils equal, round, and reactive to light. Anicteric sclerae, moist conjunctivae, and no lid lag. Oropharynx free of erythema and cobble stoning with moist mucosa. Possible slight slurred speech. Neck: Supple with full range of motion. No jugular venous distension. No bruits. No lymphadenopathy or thyromegaly. Cardiovascular: Regular rhythm, mild bradycardia, without murmurs, rubs, or gallops appreciated . Pulmonary: Clear to auscultation bilaterally without crackles, wheezes, or rhonchi. Normal respiratory effort with no use of accessory muscles. Abdomen: Soft, bowel sounds present,nontender, nondistended. No hepatosplenomegaly or masses appreciated. Extremities: No clubbing, cyanosis, or edema. Skin: Normal temperature, turgor, and texture; no rash, ulcers, or subcutaneous nodules appreciated. Neurological: Cranial nerves grossly intact. Normal muscle strength, tone, and bulk. Reflexes, coordination, and sensory function within normal limits. History of previous gait impairment and imbalance. Possible mild slurred speech. No ataxia. Cerebellar function intact with [id number] and [id number]. Psychiatric: Normal mood and affect. Alert and oriented to person, place, and time. Objective Labs Result Diagrams: 02/19/19 10:36 02/19/19 10:36 Labs: Laboratory Results - last 24 hr 02/19/19 02/19/19 02/19/19 10:36 10:36 10:36 WBC 8.2 RBC 4.34 L Hgb 13.9 Hct 40.6 L MCV 93.6 MCH 32.1 MCHC 34.4 RDW 12.6 Plt Count 262 Neut % (Auto) 75.8 H Lymph % (Auto) 15.3 L [place] % (Auto) 7.7 Eos % (Auto) 0.7 L Baso % (Auto) 0.5 Neut # (Auto) 6200 Lymph # (Auto) 1300 [place] # (Auto) 600 Eos # (Auto) 100 Baso # (Auto) 0 PT 12.8 H INR 1.1 APTT 31 Sodium 135 L Potassium 4.1 Chloride 100 Carbon Dioxide 24 BUN 17 Creatinine 1.00 Estimated GFR > 60.0 BUN/Creatinine Ratio 17.0 Glucose 107 Hemoglobin A1c Calcium 9.6 Total Bilirubin 1.0 AST 71 H ALT 124 H Alkaline Phosphatase 62 Total Protein 8.1 Albumin 4.5 Globulin 3.6 Albumin/Globulin Ratio 1.3 Triglycerides Cholesterol LDL Cholesterol, Calc HDL Cholesterol Lipase 92 07/15/19 07/15/19 10:36 10:36 WBC RBC Hgb Hct MCV MCH MCHC RDW Plt Count Neut % (Auto) Lymph % (Auto) [place] % (Auto) Eos % (Auto) Baso % (Auto) Neut # (Auto) Lymph # (Auto) [place] # (Auto) Eos # (Auto) Baso # (Auto) PT INR APTT Sodium Potassium Chloride Carbon Dioxide BUN Creatinine Estimated GFR BUN/Creatinine Ratio Glucose Hemoglobin A1c 5.4 Calcium Total Bilirubin AST ALT Alkaline Phosphatase Total Protein Albumin Globulin Albumin/Globulin Ratio Triglycerides 77 Cholesterol 155 LDL Cholesterol, Calc 104 H HDL Cholesterol 36 L Lipase Assessment & Plan Assessment & Plan narrative: Arun Barajas is a 73-year-old male with a past medical history significant for hypertension, hyperlipidemia, atherosclerotic arterial disease with history of renal artery stenosis status post stent placement, BPH status post TURP and urethral/bladder dilatation who presented for left-sided numbness, tingling, and heaviness, and disequilibrium/ discoordination with walking. 1. Probable TIA, present on admission. Resolved. -Patient presented with left-sided numbness, tingling, and heaviness, and disequilibrium/ discoordination with walking. -Initial NIH score 0. Continue to monitor NIH and neurological status frequently. -CT brain without contrast and CTA head and neck did not demonstrate any significant intracranial or neck abnormality including CVA, stenosis, or aneurysms. -MR stroke protocol ordered and pending. -Received aspirin 324 mg x1 in ED. Continue aspirin 81 mg daily and plavix 75 mg. Patient on aspirin 162.5 mg (although admits to not taking it regularly over the last month) and plavix 75 mg daily. -Risk stratify with hemoglobin A1c and fasting lipid panel, pending. Patient has previous statin intolerance and would recommend reconsidering low-dose trial with outpatient PCP. -Allow for permissive hypertension for 24-48 hours. Ordered hydralazine for SBP > 220 mmHg or DBP > 110 mmHg. -Ordered PT/OT/ST evaluation and treatment, pending. 2. Hypertension, chronic, present on admission. Stable. -Will allow for permissive hypertension for next 24-48 hours. Ordered hydralazine for SBP > 220 mmHg or DBP > 110 mmHg. -Will continue clonidine 0.2 mg twice daily, diltiazem 240 mg daily, and losartan 50 mg twice daily starting tomorrow. 3. Hyperlipidemia, chronic, present on admission. Stable. -Ordered fasting lipid panel, pending. -Previous history of statin intolerance. May want to consider low dose statin trial with PCP at and vascular surgeons. 4. BPH status post TURP, chronic, present on admission. Stable. -Continue tamsulosin 0.4 mg daily at bedtime. 5. Transaminitis, chronic, present on admission. Presumed stable. -Likely tax compliance representative of fatty liver disease. Defer workup to outpatient PCP. Patient is admitted under observation status with expected length of stay less than 2 midnights due to severity of presenting symptoms, risk of adverse event, and complexity of treatment plan.
--- NOTE | 2019-02-19 18:59 | P.HP_ITS ---
History of Present Illness Date Patient Seen: 02/19/19 Chief complaint: Thinks he had TIA last night Narrative: Arun Barajas is a 73-year-old male with a past medical history significant for hypertension, hyperlipidemia, atherosclerotic arterial disease with history of renal artery stenosis status post stent placement, BPH status post TURP and urethral/bladder dilatation who presented for left-sided numbness and tingling, heaviness, and disequilibrium/ discoordination with walking. The patient reports that at approximately 11:00 p.m. last night he began having numbness and tingling of the left side of his body. He had associated heaviness but does not endorse any weakness. He also noticed he felt discoordinated with walking and disequilibrium. He reports his symptoms had resolved by 12:00 a.m.. He has never had this before. He has no other symptoms and denies headache, lightheadedness or dizziness, vision changes including blurriness or double vision, facial droop or slurred speech,chest pain, shortness of breath, abdominal pain, nausea, vomiting, fever, chills, dysuria, diarrhea or const ipation. He endorses chronic symptoms including urinary hesitancy and weak stream related to BPH. he also has intermittent epigastric pain that comes and goes and is occasional. He has no other complaints. He is admitted for TIA rule out. Patient History Medical History Atherosclerosis (Acute) BPH (benign prostatic hyperplasia) (Acute) History of stent insertion of renal artery (Acute) Hyperlipidemia (Acute) Hypertension (Acute) Renal artery stenosis (Acute) Surgical History S/P TURP (Acute) Family History (Updated 02/19/19 @ 18:55 by Antonia Arambula DO) Father CVA (cerebral vascular accident) Mother COPD (chronic obstructive pulmonary disease) Sister Adopted Social History household members: spouse lives independently: Yes Smoking Status: Former smoker alcohol intake: never Family & Social History Family History Father CVA (cerebral vascular accident) Mother COPD (chronic obstructive pulmonary disease) Sister Adopted Social History: household members spouse Prior Living Arrangements House lives independently Yes Safety & Behavioral: Feels Safe in Current Yes Environment Been Physically Hurt or No Threatened By a Person Tobacco & Substance use: Smoking Status Former smoker quit 25 years ago, 2 ppd x 30 years alcohol intake Former. Previous history of heavy alcohol consumption. Substance Use Type does not use Meds Home Medications Medication Instructions Recorded Confirmed Type clonidine HCl [Catapres] 0.2 mg PO BID #0 08/13/11 02/19/19 History aspirin 162.5 mg PO DAILY 02/19/19 02/19/19 History clopidogrel 75 mg PO QPM 02/19/19 02/19/19 History diltiazem HCl 240 mg PO DAILY 02/19/19 02/19/19 History losartan 50 mg PO BID 02/19/19 02/19/19 History tamsulosin 0.4 mg PO QPM 02/19/19 02/19/19 History Allergies Allergy/AdvReac Type Severity Reaction Status Date / Time tamsulosin [TAMSULOSIN] Allergy Unknown dizziness Unverified 11/16/17 12:02 From [facility] Allergy Unknown DIZZINESS Uncoded 11/16/17 12:02 Review of Systems Review of Systems A 10 system comprehensive review of systems was conducted with the patient and found to be negative except as above in the History of Present Illness. Exam Vital Signs (past 8 hours): - 02/19/19 11:00 02/19/19 12:00 02/19/19 12:37 Temperature 97.3 F L Pulse Rate 55 L 65 52 L Respiratory Rate 13 14 13 Blood Pressure 139/80 Blood Pressure [Left Arm] 141/79 H 140/80 Pulse Oximetry 95 97 02/19/19 12:40 02/19/19 12:45 02/19/19 15:35 Temperature 98.2 F 97.5 F L Pulse Rate 51 L 50 L 70 Respiratory Rate 16 14 18 Blood Pressure 132/86 144/83 H Blood Pressure [Left Arm] 139/80 Pulse Oximetry 97 96 95 Oxygen Delivery Method Room Air Narrative Exam Narrative: General: Elderly gentleman sitting in bed and in no acute distress, well- developed, well-nourished, appropriately interactive. HEENT: Normocephalic, atraumatic. External ears without defect. Pupils equal, round, and reactive to light. Anicteric sclerae, moist conjunctivae, and no lid lag. Oropharynx free of erythema and cobble stoning with moist mucosa. Possible slight slurred speech. Neck: Supple with full range of motion. No jugular venous distension. No bruits. No lymphadenopathy or thyromegaly. Cardiovascular: Regular rhythm, mild bradycardia, without murmurs, rubs, or gallops appreciated . Pulmonary: Clear to auscultation bilaterally without crackles, wheezes, or rhonchi. Normal respiratory effort with no use of accessory muscles. Abdomen: Soft, bowel sounds present,nontender, nondistended. No hepatosplenomegaly or masses appreciated. Extremities: No clubbing, cyanosis, or edema. Skin: Normal temperature, turgor, and texture; no rash, ulcers, or subcutaneous nodules appreciated. Neurological: Cranial nerves grossly intact. Normal muscle strength, tone, and bulk. Reflexes, coordination, and sensory function within normal limits. History of previous gait impairment and imbalance. Possible mild slurred speech. No ataxia. Cerebellar function intact with [id number] and fi [id number]. Psychiatric: Normal mood and affect. Alert and oriented to person, place, and time. Objective Labs Result Diagrams: 02/19/19 10:36 02/19/19 10:36 Labs: Laboratory Results - last 24 hr 02/19/19 02/19/19 02/19/19 10:36 10:36 10:36 WBC 8.2 RBC 4.34 L Hgb 13.9 Hct 40.6 L MCV 93.6 MCH 32.1 MCHC 34.4 RDW 12.6 Plt Count 262 Neut % (Auto) 75.8 H Lymph % (Auto) 15.3 L [place] % (Auto) 7.7 Eos % (Auto) 0.7 L Baso % (Auto) 0.5 Neut # (Auto) 6200 Lymph # (Auto) 1300 [place] # (Auto) 600 Eos # (Auto) 100 Baso # (Auto) 0 PT 12.8 H INR 1.1 APTT 31 Sodium 135 L Potassium 4.1 Chloride 100 Carbon Dioxide 24 BUN 17 Creatinine 1.00 Estimated GFR > 60.0 BUN/Creatinine Ratio 17.0 Glucose 107 Hemoglobin A1c Calcium 9.6 Total Bilirubin 1.0 AST 71 H ALT 124 H Alkaline Phosphatase 62 Total Protein 8.1 Albumin 4.5 Globulin 3.6 Albumin/Globulin Ratio 1.3 Triglycerides Cholesterol LDL Cholesterol, Calc HDL Cholesterol Lipase 92 02/19/19 02/19/19 10:36 10:36 WBC RBC Hgb Hct MCV MCH MCHC RDW Plt Count Neut % (Auto) Lymph % (Auto) [place] % (Auto) Eos % (Auto) Baso % (Auto) Neut # (Auto) Lymph # (Auto) [place] # (Auto) Eos # (Auto) Baso # (Auto) PT INR APTT Sodium Potassium Chloride Carbon Dioxide BUN Creatinine Estimated GFR BUN/Creatinine Ratio Glucose Hemoglobin A1c 5.4 Calcium Total Bilirubin AST ALT Alkaline Phosphatase Total Protein Albumin Globulin Albumin/Globulin Ratio Triglycerides 77 Cholesterol 155 LDL Cholesterol, Calc 104 H HDL Cholesterol 36 L Lipase Assessment & Plan Assessment & Plan narrative: Arun Barajas is a 73-year-old male with a past medical history significant for hypertension, hyperlipidemia, atherosclerotic arterial disease with history of renal artery stenosis status post stent placement, BPH status post TURP and urethral/bladder dilatation who presented for left-sided numbness, tingling, and heaviness, and disequilibrium/ discoordination with walking. 1. Probable TIA, present on admission. Resolved. -Patient presented with left-sided numbness, tingling, and heaviness, and disequilibrium/ discoordination with walking. -Initial NIH score 0. Continue to monitor NIH and neurological status frequently. -CT brain without contrast and CTA head and neck did not demonstrate any significant intracranial or neck abnormality including CVA, stenosis, or aneur ysms. -MR stroke protocol ordered and pending. -Received aspirin 324 mg x1 in ED. Continue aspirin 81 mg daily and plavix 75 mg. Patient on aspirin 162.5 mg (although admits to not taking it regularly over the last month) and plavix 75 mg daily. -Risk stratify with hemoglobin A1c and fasting lipid panel, pending. Patient has previous statin intolerance and would recommend reconsidering low-dose trial with outpatient PCP. -Allow for permissive hypertension for 24-48 hours. Ordered hydralazine for SBP > 220 mmHg or DBP > 110 mmHg. -Ordered PT/OT/ST evaluation and treatment, pending. 2. Hypertension, chronic, present on admission. Stable. -Will allow for permissive hypertension for next 24-48 hours. Ordered hydralazine for SBP > 220 mmHg or DBP > 110 mmHg. -Will continue clonidine 0.2 mg twice daily, diltiazem 240 mg daily, and losartan 50 mg twice daily starting tomorrow. 3. Hyperlipidemia, chronic, present on admission. Stable. -Ordered fasting lipid panel, pending. -Previous history of statin intolerance. May want to consider low dose statin trial with PCP at and vascular surgeons. 4. BPH status post TURP, chronic, present on admission. Stable. -Continue tamsulosin 0.4 mg daily at bedtime. 5. Transaminitis, chronic, present on admission. Presumed stable. 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 Defer workup to outpatient PCP. Patient is admitted under observation status with expected length of stay less than 2 midnights due to severity of presenting symptoms, risk of adverse event, and complexity of treatment plan.
[2019-02-19] MEDS: HEPARIN 5,000 UNIT/ML VIAL 5000 UNIT SUBCUT (20:50)
[2019-02-20] MEDS: SODIUM CHLORIDE 0.9% 1,000 ML 100 ML IV (00:58)
[2019-02-20 01:00] VITALS: BP 124/68; PULSE 60; RESP 16; TEMP 36.8; O2SAT 96
[2019-02-20 01:28] VITALS: O2SAT 96
--- NOTE | 2019-02-20 04:50 | PC.NURSE ---
Pt sleeping peacefully, had NIH 0. Pleasant and AxOx3. Pt is on Tele, Sinus Adi. Pt refused SCD's.
[2019-02-20 05:00] VITALS: BP 144/72; PULSE 58; RESP 16; TEMP 36.5; O2SAT 97
[2019-02-20 07:30] VITALS: O2SAT 97
[2019-02-20 07:49] VITALS: BP 147/81; PULSE 54; RESP 15; TEMP 36.4; O2SAT 99
--- NOTE | 2019-02-20 09:11 | P.DS_ITS ---
History of Present Illness Chief complaint: Thinks he had TIA last night Narrative: Written by myself Dr. Arambula: Arun Barajas is a 73-year-old male with a past medical history significant for hypertension, hyperlipidemia, atherosclerotic arterial disease with history of renal artery stenosis status post stent placement, BPH status post TURP and urethral/bladder dilatation who presented for left-sided numbness and tingling, heaviness, and disequilibrium/ discoordination with walking. The patient reports that at approximately 11:00 p.m. last night he began having numbness and tingling of the left side of his body. He had associated heaviness but does not endorse any weakness. He also noticed he felt discoordinated with walking and disequilibrium. He reports his symptoms had resolved by 12:00 a.m.. He has never had this before. He has no other symptoms and denies headache, lightheadedness or dizziness, vision changes including blurriness or double vision, facial droop or slurred speech,chest pain, shortness of breath, abdominal pain, nausea, vomiting, fever, chills, dysuria, diarrhea or constipation. He endorses chronic symptoms including urinary hesitancy and weak stream related to BPH. he also has intermittent epigastric pain that comes and goes and is occasional. He has no other complaints. He is admitted for TIA rule out. Discharge Providers Date of admission: 02/19/19 11:39 Discharge Date: 02/20/19 Primary care physician: Shahid Healy MD Consults: 02/19/19 11:44 Consult to Discharge Planning Routine Comment: Consult to Occupational Therapy Evaluate & Treat Comment: Physician Instructions: Evaluate and treat 02/19/19 11:45 Consult to Physical Therapy Evaluate & Treat Comment: Physician Instructions: Evaluate and Treat Discharge provider: Antonia Arambula DO Summary Discharge Diagnosis: 1. Probable TIA, present on admission. Resolved. 2. Hypertension, chronic, present on admission. Stable. 3. Hyperlipidemia, chronic, present on admission. Stable. 4. BPH status post TURP, chronic, present on admission. Stable. 5. Transaminitis, chronic, present on admission. Presumed stable. 6. Probable obstructive sleep apnea, chronic, present on admission. Stable. 7. Bilateral carotid artery disease, chronic, present on admission. Stable. Hospital Course: Arun Baarjas is a 73-year-old male with a past medical history significant for hypertension, hyperlipidemia, atherosclerotic arterial disease with history of renal artery stenosis status post stent placement, BPH status post TURP and urethral/bladder dilatation who presented for left-sided numbness, tingling, and heaviness, and disequilibrium/ discoordination with walking. 1. Probable TIA, present on admission. Resolved. -Patient presented with left-sided numbness, tingling, and heaviness, and disequilibrium/ discoordination with walking that resolved within an hour. -Initial NIH score 0. Continued to monitor NIH and neurological status frequently. -CT brain without contrast and CTA head and neck did not demonstrate any significant intracranial or neck abnormality including CVA, stenosis, or aneurysms. -MR stroke protocol demonstrated no evidence of acute stroke, hemorrhage, mass, aneurysm, stenosis, or occlusion; Age related volume loss and mild small vessel ischemic change, mildly progressed from the prior study. Mild interval increase in right internal carotid artery stenosis, and the neighborhood of approximately 60%. Stable left internal carotid artery stenosis, measuring between 65 and 70%. -Echocardiogram demonstrated PFO which puts patient at increased risk of embolic CVA and should be closely monitored for atrial fibrillation. -Received aspirin 324 mg x1 in ED. Continued aspirin 81 mg daily and plavix 75 mg. Patient usually on aspirin 162.5 mg (although admits to not taking it regularly over the last month) and plavix 75 mg daily. -Risk stratified with hemoglobin A1c which was within normal limits at 5.4% and fasting lipid panel mildly uncontrolled and demonstrated: Total cholesterol 155, triglycerides 77, LDL 104 ( goal < 100) and HDL 36. Patient has previous statin intolerance and would recommend reconsidering low-dose trial with outpatient PCP and lifestyle modification including: Diet and exercise which was discussed in detail. -Allowed for permissive hypertension for 24-48 hours. Ordered hydralazine for SBP > 220 mmHg or DBP > 110 mmHg. -Consulted PT/OT/ST evaluation and treatment. No further recommendations and patient may return home independently. Patient noted to have some delayed cognitive ability on OT eval and should be careful driving and long standing balance issue by PT that he could consider PT outpatient. 2. Hypertension, chronic, present on admission. Stable. -Allowed for permissive hypertension for next 24-48 hours. Ordered hydralazine for SBP > 220 mmHg or DBP > 110 mmHg. -Continued clonidine 0.2 mg twice daily and losartan 50 mg twice daily after period of permissive hypertension. Lowered diltiazem CD from 240 mg to 180 mg daily due to significant bradycardia 40-50's (as low as 39) which will need to continue to be monitored closely. 3. Hyperlipidemia, chronic, present on admission. Stable. -Fasting lipid panel mildly uncontrolled and demonstrated: Total cholesterol 155, triglycerides 77, LDL 104 (goal < 100) and HDL 36. Patient has previous statin intolerance and would recommend reconsidering low-dose trial with outpatient PCP and lifestyle modification including: Diet and exercise which was discussed in detail. 4. BPH status post TURP, chronic, present on admission. Stable. -Continued tamsulosin 0.4 mg daily at bedtime. 5. Transaminitis, chronic, present on admission. Presumed stable. -Likely sales and marketing representative of fatty liver disease. Defer workup to outpatient PCP and recommend hepatology referral. 6. Probable obstructive sleep apnea, chronic, present on admission. Stable. -Patient reports snoring and endorses apneic episodes. -Recommended outpatient sleep study. 7. Bilateral carotid artery disease, chronic, present on admission. Stable. -MR stroke protocol demonstrated mild interval increase in right internal carotid artery stenosis, and the neighborhood of approximately 60%. Stable left internal carotid artery stenosis, measuring between 65 and 70%. -Recommend annual monitoring outpatient per PCP. Exam Vital Signs (past 8 hours): - 02/20/19 01:28 02/20/19 05:00 02/20/19 07:49 Temperature 97.7 F 97.6 F Pulse Rate 58 L 54 L Respiratory Rate 16 15 Blood Pressure 144/72 H 147/81 H Pulse Oximetry 96 97 99 Oxygen Delivery Method Room Air Oxygen Flow Rate 0 Narrative Exam Narrative: General: Elderly gentleman sitting in bed and in no acute distress, well- developed, well-nourished, appropriately interactive. HEENT: Normocephalic, atraumatic. External ears without defect. Pupils equal, round, and reactive to light. Anicteric sclerae, moist conjunctivae, and no lid lag. Oropharynx free of erythema and cobble stoning with moist mucosa. Poss ible slight slurred speech. Neck: Supple with full range of motion. No jugular venous distension. No bruits. No lymphadenopathy or thyromegaly. Cardiovascular: Regular rhythm, mild bradycardia, without murmurs, rubs, or gallops appreciated . Pulmonary: Clear to auscultation bilaterally without crackles, wheezes, or rhonchi. Normal respiratory effort with no use of accessory muscles. Abdomen: Soft, bowel sounds present,nontender, nondistended. No hepatosplenomegaly or masses appreciated. Extremities: No clubbing, cyanosis, or edema. Skin: Normal temperature, turgor, and texture; no rash, ulcers, or subcutaneous nodules appreciated. Neurological: Cranial nerves grossly intact. Normal muscle strength, tone, and bulk. Reflexes, coordination, and sensory function within normal limits. H istory of previous gait impairment and imbalance. Possible mild slurred speech. No ataxia. Cerebellar function intact with [id number]-[id number] and [id number]. Psychiatric: Normal mood and affect. Alert and oriented to person, place, and time. Objective Labs Result Diagrams: 02/19/19 10:36 02/19/19 10:36 Labs: Laboratory Results - last 24 hr 02/19/19 02/19/19 02/19/19 10:36 10:36 10:36 WBC 8.2 RBC 4.34 L Hgb 13.9 Hct 40.6 L MCV 93.6 MCH 32.1 MCHC 34.4 RDW 12.6 Plt Count 262 Neut % (Auto) 75.8 H Lymph % (Auto) 15.3 L Whiteside % (Auto) 7.7 Eos % (Auto) 0.7 L Baso % (Auto) 0.5 Neut # (Auto) 6200 Lymph # (Auto) 1300 Whiteside # (Auto) 600 Eos # (Auto) 100 Baso # (Auto) 0 PT 12.8 H INR 1.1 APTT 31 Sodium 135 L Potassium 4.1 Chloride 100 Carbon Dioxide 24 BUN 17 Creatinine 1.00 Estimated GFR > 60.0 BUN/Creatinine Ratio 17.0 Glucose 107 Hemoglobin A1c Calcium 9.6 Total Bilirubin 1.0 AST 71 H ALT 124 H Alkaline Phosphatase 62 Total Protein 8.1 Albumin 4.5 Globulin 3.6 Albumin/Globulin Ratio 1.3 Triglycerides Cholesterol LDL Cholesterol, Calc HDL Cholesterol Lipase 92 02/19/19 02/19/19 10:36 10:36 WBC RBC Hgb Hct MCV MCH MCHC RDW Plt Count Neut % (Auto) Lymph % (Auto) Whiteside % (Auto) Eos % (Auto) Baso % (Auto) Neut # (Auto) Lymph # (Auto) Whiteside # (Auto) Eos # (Auto) Baso # (Auto) PT INR APTT Sodium Potassium Chloride Carbon Dioxide BUN Creatinine Estimated GFR BUN/Creatinine Ratio Glucose Hemoglobin A1c 5.4 Calcium Total Bilirubin AST ALT Alkaline Phosphatase Total Protein Albumin Globulin Albumin/Globulin Ratio Triglycerides 77 Cholesterol 155 LDL Cholesterol, Calc 104 H HDL Cholesterol 36 L Lipase Discharge Plan Discharge Plan Patient Disposition: Home Discharge comment: You're being discharged home. You likely have had a TIA. Your MRI did not show a stroke. Your carotid arteries have plaque calcifications which need to be monitored annually as an outpatient by PCP or vascular surgeon Dr. Jacobs. Your heart rate was quite low and may have limited blood flow to your brain causing your TIA. Your diltiazem dose has been lowered from 240 mg daily to 180 mg daily. This medication may need to be further adjusted or discontinued altogether. Your clonidine may also lower your heart rate slightly and your dose may need to be lowered as well. Continue to monitor your blood pressure closely at home and at your doctor's office. You have a patent foramen ovale (PFO) or hole in your heart for which you may be at increased risk of stroke if you develop blood clots due to an irregular rhythm/heart beat called atrial fibrillation or atrial flutter. If you develop this irregular heartbeat or have had history of this in the past you will need to be on a more potent blood thinner such as warfarin, Xarelto, Eliquis etc. You have had no signs of an irregular heartbeat during this hospitalization. Recommend outpatient sleep study to assess for obstructive sleep apnea. Please continue Plavix 75 mg daily and aspirin 81 mg daily for stroke prevention. Do not miss a dose of either medication. You may also want to consider low-dose statin trial with close monitoring. You also have fatty liver disease which is not benign and recommend an outpatient evaluation by a supervisor anodizing. Please keep your scheduled establish care and hospital follow-up appointment with Dr. Ceron on 02/28/2019 at 1:45 p.m. Discharge Med Rec/Prescriptions Prescriptions: New aspirin 81 mg Tablet,Delayed Release (/Ec) 81 mg PO DAILY Qty: 30 RF: 0 diltiazem HCl 180 mg capsule,extended release 24hr 180 mg PO DAILY Qty: 30 RF: 0 Continued clonidine HCl [Catapres] 0.2 MG tablet 0.2 mg PO BID Qty: 0 RF: 0 losartan 50 mg tablet 50 mg PO BID RF: 0 clopidogrel 75 mg tablet 75 mg PO QPM RF: 0 tamsulosin 0.4 mg capsule 0.4 mg PO QPM RF: 0 Discontinued aspirin 325 mg Tablet 162.5 mg PO DAILY RF: 0 Follow up/Referrals: Shahid Healy MD [Primary Care Provider] - Brigette Ceron MD [Physician] - 02/28/19 1:45 pm (Follow up with Dr. Ceron @ [facility] TuesdayFebruary 28 @ 1:45 p.m. Please complete new patient paperwork and turn in prior to appt. If you do not turn in prior to appt please come to the clinic at 1:30 p.m.) Provider Discharge Instructions Diet: Low-fat, Low-sodium and Low-cholesterol Activity: Activity as tolerated Visit Report/Discharge Packet Instructions: The Mediterranean Diet and Good Health, The DASH Diet, DI for Transient Ischemic Attack, Mediterranean Diet May Reduce the Risk of Stroke in People with High Risk o, DI for Nonalcoholic Fatty Liver Disease Discharge Data Primary Care Provider: Shahid Healy Attending Provider: Antonia Arambula Admmary carmen Date/Time: 02/19/19 11:39
[2019-02-20] MEDS: LOSARTAN 50 MG TABLET PO (09:12)
[2019-02-20] MEDS: HEPARIN 5,000 UNIT/ML VIAL 5000 UNIT SUBCUT (09:12)
[2019-02-20] MEDS: cloNIDine 0.1 MG TABLET 0.2 MG PO (09:13)
[2019-02-20] MEDS: ASPIRIN EC 81 MG TABLET PO (09:13)
[2019-02-20] MEDS: dilTIAZem CD 240 MG CAP 180 MG PO (09:17)
--- NOTE | 2019-02-20 11:04 | PT.IIE ---
Surgical History (Last Reviewed 02/19/19 @ 18:55 by Antonia Arambula DO) S/P TURP (Acute) Medical History (Last Reviewed 02/19/19 @ 18:55 by Antonia Arambula DO) Atherosclerosis (Acute) BPH (benign prostatic hyperplasia) (Acute) History of stent insertion of renal artery (Acute) Hyperlipidemia (Acute) Hypertension (Acute) Renal artery stenosis (Acute) Physical Therapy Inpatient Evaluation/Re-Eval M1 PT/OT-IP Prior Functional Status Start: 02/20/19 12:44 Freq: NEEDED Status: Active Protocol: Document 02/20/19 11:04 AB (Rec: 02/20/19 13:00 AB [id number]) Medical Review Prior Functional Status Medical History Reviewed Yes Communication able to make needs known Mobility and Gait pt stated that he is independent with all mobilities and ambulation without AD Social History Household Members spouse Living Arrangements House Number of Floors (Floors) Two Floors Number of Stairs To Enter/Railing? 2 steps to enter without rails 14 steps to the bedroom level without rails Home Environment Standard Height Toilet Tub/Shower Home Equipment Hand Held Shower Employment Status Retired M2 PT-IP Current Condition Start: 02/20/19 12:44 Freq: NEEDED Status: Active Protocol: Document 02/20/19 11:04 AB (Rec: 02/20/19 13:00 AB [id number]) Physical Therapy Current Condition Current Condition Evaluation Date 02/20/19 Treatment Diagnosis TIA; difficulty in walking Onset Date 02/19/19 M3 PT-IP Subjective Start: 02/20/19 12:44 Freq: NEEDED Status: Active Protocol: Document 02/20/19 11:04 AB (Rec: 02/20/19 13:00 AB [id number]) Subjective Physical Therapy Visit Type Type Initial Evaluation Visit Start Time 11:04 Visit Stop Time 11:20 Total Visit Minutes 16 Number of ORNAMENTAL IRON WORKER APPRENTICE Visits 0 Physical Therapy Visit Comments Patient Comments pt agreeable to do PT Therapy Pain Assessment Pain Present Pain Present Denied Pain M4 PT-IP Mobility and Gait Start: 02/20/19 12:44 Freq: NEEDED Status: Active Protocol: Document 02/20/19 11:04 AB (Rec: 02/20/19 13:00 AB [id number]) PT-Bed Mobility Assessment Supine to Sit Supine to Sit Standby Assistance Sit to Supine Sit to Supine Standby Assistance Scooting Scooting to Edge of Bed Standby Assistance PT-Transfer Assessment Sit to and From Stand Sit to and from Stand Standby Assistance Equipment Transfer Assistive Device Gait Belt Orthotic/Prosthetic Devices or Brace: No Transfers Transfer Destination Bed Transfer Technique pt ambulated without AD Transfer Ability Level of Assist Standby Assistance Gait Assessment Gait Gait Assistance Required: Standby Assistance Distance (Feet) 250 Able to Maintain Weight Bearing Status Yes During Gait Assistive Devices Assistive Device None Gait Belt Gait Deviations General Gait Pattern Antalgic Factors Limiting Gait Function Factors Limiting Gait Function Decreased Strength Poor Balance Stair Climbing Assessment Evaluation Level of Assist On Stairs Standby Assistance Devices Stair Climbing Assistive Devices None Technique/Endurance Stair Climbing Direction Ascend and Descend Stair Climbing Technique Step Over Step Number of Steps Climbed 3 Query Text: Stair Climbing Set # Repetitions (reps) 5 PT-Balance Assessment Sitting Balance and Reactions Static Sitting Balance Ability Normal Dynamic Sitting Balance Ability Normal Standing Balance and Reactions Static Standing Balance Ability Normal Dynamic Standing Balance Ability Good Device Used without AD Functional Assessments Functional Tests Tinetti Balance and Gait Assessment balance score: gait score: 07/19 Other Functional Tests Performed tinetti balance assessment: total score 28/28: low fall risk M5 PT-IP Objective Assessments Start: 02/20/19 12:44 Freq: NEEDED Status: Active Protocol: Document 02/20/19 11:04 AB (Rec: 02/20/19 13:00 AB [id number]) Orientation Orientation/Cognition Level of Alertness Alert Orientation Name Place Situation Gross Range of Motion Lower Extremity ROM Assessment Within Functional Limits Strength Lower Extremity Strength Assessment Within Functional Limits Coordination Assessment Gross Coordination Gross Coordination WNL Sensation Assessment Sensation Gross Sensation WNL Muscle Tone Muscle Tone WNL Yes M6 PT-IP Treatment Start: 02/20/19 12:44 Freq: NEEDED Status: Active Protocol: Document 02/20/19 11:04 AB (Rec: 02/20/19 13:00 AB [id number]) Physical Therapy Treatment Education Education Provided Safety M7 PT-IP Assessment and Plan Start: 02/20/19 12:44 Freq: NEEDED Status: Active Protocol: Document 02/20/19 11:04 AB (Rec: 02/20/19 13:00 AB [id number]) PT Summary Assessment and Plan Potential Rehabilitation Potential Fair Status of Condition at Evaluation Stable Summary Impairments Balance Assessment Summary pt requiring SBA with mobility . c/o L foot not feeling right and not 100%. pt ambulated without AD and without LOB. pt plans to go home and spouse to assist him. Goals Transfer Goal Independent Gait Goal Independent Gait Distance >300 Other Goals up/down 14 steps without rails mod I Days to Meet Goals 3 Frequency of Treatment Frequency Of Treatment Once a Day Treatment Plan Physical Therapy Treatment Plan Transfer Training Gait Training Therapeutic Exercise Balance Retraining Discharge Planning Neuromuscular Re-ed Coordination Retraining Recommendations To Nursing Amount of Assist Needed Standby Assistance Discharge Recommendations PT Discharge Recommendations Home with Assistance
--- NOTE | 2019-02-20 11:53 | CM.DANOTE ---
DCP: Case received, EMR reviewed and met with patient. Introduced self and role. Met with patient and obtained baseline health information. DCP template completed with information currently available. Patient is a 73 year old male who admitted yesterday morning to the care of the hospitalist team. PCP: Dr. Healy. Payer: confirmed: Medicare/ Patient came to the hospital via family vehicle secondary to numbing and tingling sensation to his left upper and lower extremity. He was diagnosed with TIA. Patient also has history of hypertension as well. He was here for some testing. Met with patient in his room. Alert and oriented, was talking to his , Hayde, over the phone. He is independent at home, and stated, he had never had these type of symptoms before. At this time, he stated, he is feeling better, and no longer having the symptoms. P: Patient is to be discharged home today. He will be following up with his primary care provider. Jennie Yanes RN, [employer]
--- NOTE | 2019-02-20 13:19 | OT.IP.EVAL ---
Past Medical History (Last Reviewed 02/19/19 @ 18:55 by Antonia Arambula DO) Atherosclerosis (Acute) BPH (benign prostatic hyperplasia) (Acute) History of stent insertion of renal artery (Acute) Hyperlipidemia (Acute) Hypertension (Acute) Renal artery stenosis (Acute) Surgical History (Last Reviewed 02/19/19 @ 18:55 by Antonia Arambula DO) S/P TURP (Acute) Occupational Therapy Inpatient Evaluation/Re-Eval M1 PT/OT-IP Prior Functional Status Start: 02/20/19 12:44 Freq: NEEDED Status: Active Protocol: Document 02/20/19 11:04 AB (Rec: 02/20/19 13:00 AB [id number]) Medical Review Prior Functional Status Medical History Reviewed Yes Communication able to make needs known Mobility and Gait pt stated that he is independent with all mobilities and ambulation without AD Social History Household Members spouse Living Arrangements House Number of Floors (Floors) Two Floors Number of Stairs To Enter/Railing? 2 steps to enter without rails 14 steps to the bedroom level without rails Home Environment Standard Height Toilet Tub/Shower Home Equipment Hand Held Shower Employment Status Retired M1 PT/OT-IP Prior Functional Status Start: 02/20/19 12:47 Freq: NEEDED Status: Active Protocol: Document 02/20/19 12:48 [facility] (Rec: 02/20/19 13:19 [facility] [id number]) Medical Review Prior Functional Status Medical History Reviewed Yes Diet/Fluid Consistency Regular Thin Liquids Communication Independent. Mobility and Gait Independent and did not use a device. Activities of Daily Living and IADL's Independent with all ADl's, IADL's and driving. Social History Household Members spouse Living Arrangements House Number of Floors (Floors) Two Floors Number of Stairs To Enter/Railing? 2 steps and no rail to get in and 14 steps to the bedroom. Home Environment Standard Height Toilet Tub/Shower Employment Status Retired Additional Social History Comment Pt takes a bath at home. Pt states recently he has noted that his balance is not as good and especially for dynamic standing balance needs . M2 OT-IP Current Condition Start: 02/20/19 12:47 Freq: Status: Active Protocol: Document 02/20/19 12:48 [facility] (Rec: 02/20/19 13:19 [facility] [id number]) Occupational Therapy Current Condition Current Condition Evaluation Date 02/20/19 Treatment Diagnosis TIA, weakness Diagnosis Onset Date 02/19/19 Weight Bearing Status Weight Bearing Status Weight Bear as Tolerated M3 OT- IP Subjective and Pain Start: 02/20/19 12:47 Freq: Status: Active Protocol: Document 02/20/19 12:48 [facility] (Rec: 02/20/19 13:19 [facility] [id number]) OT- Subjective Occupational Therapy Visit Type Type Initial Evaluation Visit Start Time 10:35 Visit Stop Time 11:05 Total Visit Minutes 30 Occupational Therapy Visit Comments Patient Comments Pt's present during OT eval. Patient/Caregiver Goals Pt wanting to go home. OT Pain Assessment Pain When Pain Assessed At Rest Pain Present Pain Present Denied Pain M4 OT- IP ADL's Start: 02/20/19 12:47 Freq: Status: Active Protocol: Document 02/20/19 12:48 [facility] (Rec: 02/20/19 13:19 [facility] [id number]) OT ADL-Grooming General Evaluation Grooming Ability Independent OT ADL-Oral Care General Eval Oral Care Ability Independent OT ADL-Dressing General Eval Lower Body Dressing Ability Standby Assistance Comments OT Dressing Comments Pt tried to jacqueline/doff socks while foot in the toilet as he does at home. Pt lost his balance but able to use the wall to catch his balance. Pt states now that he will have to modify how he does things due to decreased dynamic balance. OT ADL-Bathing Comments OT Bathing Comments Stimulated pt to get down to the tub, pt admits having more difficulty to get up from the floor. Therefore suggest to have assist or just shower until stronger. M5 OT- IP IADL's Start: 02/20/19 12:47 Freq: Status: Active Protocol: Document 02/20/19 12:48 [facility] (Rec: 02/20/19 13:19 [facility] [id number]) OT-Instrumental Activities of Daily Living Home Safety Awareness Awareness of Need for Assistance at Home Good Awareness Ability to Problem Solve Emergency Able to Problem Solve Situations M6 OT- IP Functional Cognition Start: 02/20/19 12:47 Freq: Status: Active Protocol: Document 02/20/19 12:48 [facility] (Rec: 02/20/19 13:19 [facility] [id number]) Cognitive Factors Limiting Selfcare Function Cognitive Ability Level of Alertness Alert Patient Orientation Name Place Situation Attention Span Ability Capable of Focused Attention Capable of Sustained Attention Ability to Follow Commands Able to Follow Multi-Step Commands Memory Description No Deficits Noted Safety Awareness No Deficits Noted Problem Solving Ability No deficits Noted Cognitive Tests ACL Pt scored 5.4 out of 6.0 which implies pt may live alone and may need prompts to anticipate hazards and prevent accident. Help with estimating effective use of time, and collaboration. Cognitive Comments Cognitive Assessment Comments Pt scored 78 seconds on [place] Making Part B which implies mild impairments with visual attention, task switching, speed of processing, executive function, and mental flexibility. Suggested pt's to sit with him initially when driving. OT- Vision and Hearing OT- Hearing Assessment OT- Hearing Assessment WFL OT- Vision Assessment Visual Acuity WFL M7 OT- IP Mobility and Balance Start: 02/20/19 12:47 Freq: Status: Active Protocol: Document 02/20/19 12:48 [facility] (Rec: 02/20/19 13:19 [facility] [id number]) OT-Transfer Assessment Sit to and From Stand Sit to and from Stand Independent Transfers Transfer Ability Independent Technique Transfer Destination Chair Toilet Devices Transfer Assistive Devices None Comments Mobility Comments Pt independent in the room. OT- Balance Assessment Sitting Balance and Reactions Static Sitting Balance Ability Normal Dynamic Sitting Balance Ability Normal Standing Balance and Reactions Static Standing Balance Ability Normal Dynamic Standing Balance Ability Fair M8 OT- IP Objective Assessments Start: 02/20/19 12:47 Freq: Status: Active Protocol: Document 02/20/19 12:48 [facility] (Rec: 02/20/19 13:19 [facility] [id number]) OT Gross Range of Motion Upper Extremity Range of Motion Assessment Within Functional Limits OT Strength Upper Extremity Strength Assessment Within Functional Limits OT- Coordination Assessment Upper Extremity Finger to Nose Test Within Functional Limits M9 OT- IP Assessment and Plan Start: 02/20/19 12:47 Freq: Status: Active Protocol: Document 02/20/19 12:48 [facility] (Rec: 02/20/19 13:19 [facility] [id number]) OT Summary Assessment and Plan Potential Rehabilitation Potential Excellent Analytic Complexity at Evaluation Low Summary OT Impairments Functional Mobility Assessment Summary Pt low complexity and main deficit higher level dynamic balance and referred to PT to suggest PT needs. Pt to go home with . has good understanding to provide supervision as needed. Goals Days to Meet Goals 1 Frequency of Treatment Frequency Of Treatment Discharge Discharge Recommendations OT Discharge Recommendations Home with Assistance
--- NOTE | 2019-02-20 15:11 | PC.NURSE ---
Discharge: Feels ready to d/c home. Seen by Dr. álvarez and given her instructions. Has seen PT/OT and received their final instructions. Pt given rx. Reviewed information for diet and TIA's. present for teaching. Pt d/c home via auto w/spouse.
== END 2019-02-20 12:30 | disposition home or self-care (01) ==
LOC: ED 11:01 → AC 11:39
PROVIDERS: Admitting Provider Internal Medicine; Emergency Provider Emergency Medicine; PCP Internal Medicine; Visit Provider Internal Medicine
DX: R29.818 Other symptoms and signs involving the nervous system (principal); I10 Essential (primary) hypertension; E78.5 Hyperlipidemia, unspecified; I25.10 Atherosclerotic heart disease of native coronary artery without angina pectoris; I70.1 Atherosclerosis of renal artery; N40.0 Benign prostatic hyperplasia without lower urinary tract symptoms; R74.0 Nonspecific elevation of levels of transaminase and lactic acid dehydrogenase [LDH]; I65.23 Occlusion and stenosis of bilateral carotid arteries
CPT/HCPCS: 36415; 36591; 70450; 70548; 70553; 80053; 80061; 83036; 83690; 85025; 85610; 85730; 93005; 93306; 96360; 96361; 96372; 97161; 97165; 99283; 99285; G0378; A9579; J1644

== ENCOUNTER → 2019-04-23 08:59 | Outpatient (CLI) | payer MEDICARE, OTHER, SELFPAY ==
[2019-02-19 15:29] VITALS: BMI 29.0
[2019-04-23 11:29] LABS: BUN Creatinine Ratio 17.3 (6-22); Blood Urea Nitrogen 19 mg/dL (9-20); Calcium 9.7 mg/dL (8.4-10.2); Carbon Dioxide 25 mmol/L (22-32); Chloride 98 mmol/L (98-107); Estimated Glomerular Filt Rate > 60.0 mL/min (>60); Glucose 107 mg/dL (80-110); HEMOLYSIS < 15 (0-50); Potassium 4.2 mmol/L (3.4-5.1); Sodium 135 mmol/L (137-145)
== END ==
PROVIDERS: PCP Internal Medicine; Visit Provider Nurse Practitioner
DX: R79.89 Other specified abnormal findings of blood chemistry (principal)
CPT/HCPCS: 36415; 80048

== ENCOUNTER → 2019-04-30 08:25 | Outpatient (CLI) | payer MEDICARE, OTHER, SELFPAY ==
[2019-02-19 15:29] VITALS: BMI 29.0
[2019-04-30 10:12] LABS: HEMOLYSIS < 15 (0-50); Iron 45 ug/dL (49-181)
[2019-04-30 10:13] LABS: Cholesterol 149 mg/dL (140-199); HDL Cholesterol 39 mg/dL (40-60); LDL Cholesterol Calculated 95 mg/dL (<100); Triglycerides 73 mg/dL (35-150)
[2019-04-30 10:23] LABS: Percent Iron Saturation 14 % (20-50); Total Iron Binding Capacity 321 ug/dL (261-462); Transferrin 242 mg/dL (206-381)
[2019-04-30 11:02] LABS: Vitamin B12 327 pg/mL (239-931)
== END ==
PROVIDERS: PCP Internal Medicine; Visit Provider Internal Medicine
DX: D64.9 Anemia, unspecified (principal); E78.5 Hyperlipidemia, unspecified
CPT/HCPCS: 36415; 80061; 82607; 83540; 83550

== ENCOUNTER → 2019-05-31 08:38 | Outpatient (CLI) | payer MEDICARE, OTHER, SELFPAY ==
[2019-02-19 15:29] VITALS: BMI 29.0
--- NOTE | 2019-05-31 | DI.US.S_ITS ---
PROCEDURE: US PERIPH VENOUS LOW EXTREM RT INDICATIONS: LOCALIZED EDEMA TECHNIQUE: Real-time imaging, as well as color and pulse Doppler interrogation, were performed of the lower extremity deep veins from the inguinal ligament to the popliteal fossa. COMPARISON: None. FINDINGS: The common femoral, femoral and popliteal veins are normally compressible, and free of intraluminal thrombus. Color and pulse Doppler demonstrate normal phasic intraluminal flow. There is normal augmentation response to distal compression maneuver. IMPRESSION: No evidence of deep vein thrombosis of the right lower extremity. Dictated by: Raphael Gutierrez M.D. on 05/31/2019 at 8:35 Approved by: Raphael Gutierrez M.D. on 05/31/2019 at 8:35
== END ==
PROVIDERS: PCP Internal Medicine; Visit Provider Nurse Practitioner
DX: R60.0 Localized edema (principal); M79.604 Pain in right leg; M79.605 Pain in left leg; R79.89 Other specified abnormal findings of blood chemistry
CPT/HCPCS: 93971

== ENCOUNTER → 2019-07-03 09:01 | Outpatient (CLI) | payer MEDICARE, OTHER, SELFPAY ==
[2019-02-19 15:29] VITALS: BMI 29.0
[2019-07-13 23:49] LABS: Protein C Antigen 93 % normal (70-140)
[2019-07-16 13:00] LABS: PTT-LA Screen 30
[2019-07-16 13:01] LABS: dRVVT Screen 33
== END ==
PROVIDERS: Family Provider Internal Medicine; PCP Internal Medicine; Visit Provider Psychiatry & Neurology Neurology
DX: G45.9 Transient cerebral ischemic attack, unspecified (principal)
CPT/HCPCS: 36415; 81241; 85230; 85300; 85302; 85305; 85306; 85597; 85613; 85730; 86146; 86147

== ENCOUNTER → 2019-07-27 08:26 | Outpatient (CLI) | payer MEDICARE, OTHER, SELFPAY ==
[2019-02-19 15:29] VITALS: BMI 29.0
[2019-07-27 09:35] LABS: BUN Creatinine Ratio 18.2 (6-22); Blood Urea Nitrogen 20 mg/dL (9-20); Calcium 9.5 mg/dL (8.4-10.2); Carbon Dioxide 25 mmol/L (22-32); Chloride 100 mmol/L (98-107); Cholesterol 146 mg/dL (140-199); Estimated Glomerular Filt Rate > 60.0 mL/min (>60); Glucose 111 mg/dL (80-110); HDL Cholesterol 37 mg/dL (40-60); HEMOLYSIS < 15 (0-50); LDL Cholesterol Calculated 95 mg/dL (<100); Potassium 4.6 mmol/L (3.4-5.1); Sodium 136 mmol/L (137-145); Triglycerides 72 mg/dL (35-150)
== END ==
PROVIDERS: Family Provider Internal Medicine; PCP Internal Medicine; Visit Provider Internal Medicine Interventional Cardiology
DX: I70.1 Atherosclerosis of renal artery (principal)
CPT/HCPCS: 36415; 80048; 80061

== ENCOUNTER → 2019-11-19 06:59 | Outpatient (CLI) | payer MEDICARE, OTHER, SELFPAY ==
[2019-02-19 15:29] VITALS: BMI 29.0
[2019-11-19 07:18] LABS: Bacteria Urine None Seen; RBC Urine None Seen (0-5/HPF)
[2019-11-19 09:35] LABS: BUN Creatinine Ratio 18.6 (6-22); Blood Urea Nitrogen 21 mg/dL (9-20); Carbon Dioxide 26 mmol/L (22-32); Chloride 98 mmol/L (98-107); Estimated Glomerular Filt Rate > 60.0 mL/min (>60); Glucose 99 mg/dL (80-110); HEMOLYSIS < 15 (0-50); Magnesium 1.9 mg/dL (1.6-2.3); Phosphorous 3.8 mg/dL (2.3-3.7); Potassium 4.7 mmol/L (3.4-5.1); Sodium 135 mmol/L (137-145); Uric Acid 7.3 mg/dL (3.5-8.5)
[2019-11-19 09:56] LABS: Appearance Urine UA CLEAR; Bilirubin Urine UA NEGATIVE (NEGATIVE); Color Urine UA YELLOW; Glucose Urine UA NEGATIVE (Negative); Ketones Urine UA NEGATIVE (NEGATIVE); Leukocyte Esterase Urine UA NEGATIVE (NEGATIVE); Nitrite Urine UA NEGATIVE (Negative); Occult Blood Urine UA NEGATIVE (Negative); Protein Urine UA NEGATIVE (Negative); Urobilinogen Urine UA 0.2 E.U./dL (0.2)
[2019-11-19 09:57] LABS: Urine Comments Microscopic Normal; WBC Urine 0-1/HPF (0-5/HPF)
[2019-11-19 10:19] LABS: Creatinine Urine Random 14.1 mg/dL
[2019-11-19 10:23] LABS: Microalbumi Creatinin Ratio Ur 56.7 ug/mg CR (<30); Microalbumin Urine Random 0.8 mg/dL (0-1.6)
== END ==
PROVIDERS: Family Provider Internal Medicine; PCP Internal Medicine; Referring Provider Physician Assistant; Visit Provider Physician Assistant
DX: I13.10 Hypertensive heart and chronic kidney disease without heart failure, with stage 1 through stage 4 chronic kidney disease, or unspecified chronic kidney disease (principal)
CPT/HCPCS: 36415; 80048; 81001; 82043; 82570; 83735; 84100; 84550

== ENCOUNTER → 2020-03-21 09:34 | Outpatient (CLI) | payer MEDICARE, OTHER, SELFPAY ==
[2019-02-19 15:29] VITALS: BMI 29.0
--- NOTE | 2020-03-21 | DI.US.S_ITS ---
PROCEDURE: US CAROTID DOPPLER BI INDICATIONS: STENOSIS TECHNIQUE: Color and pulse Doppler interrogation was performed of both carotid systems, with image documentation and velocity measurements. COMPARISON: None. FINDINGS: Stenosis calculations are based on SRU (Society of Radiologists in Ultrasound) criteria. Right side: Brachial blood pressure: Not done Common carotid artery peak systolic velocity: 81 cm/sec. Internal carotid artery peak systolic velocity: 135 cm/sec. Internal carotid artery end diastolic velocity: 38 cm/sec. External carotid artery peak systolic velocity: 122 cm/sec. ICA/CCA peak systolic ratio: 1.67 Blank scale imaging description: Mild atherosclerotic changes are seen. Percent internal carotid artery stenosis: 50-69% by velocity criteria Vertebral artery: Flow direction is antegrade. Left side: Brachial blood pressure: Not done Common carotid artery peak systolic velocity: 65 cm/sec. Internal carotid artery peak systolic velocity: 116 cm/sec. Internal carotid artery end diastolic velocity: 18 cm/sec. External carotid artery peak systolic velocity: 128 cm/sec. ICA/CCA peak systolic ratio: 1.77 Blank scale imaging description: Moderate atherosclerotic changes are seen. Percent internal carotid artery stenosis: Less than 50% by velocity criteria. Vertebral artery: Flow direction is antegrade. IMPRESSION: By velocity criteria, there is a moderate stenosis (between 50 and 69% stenosis) within the right proximal internal carotid artery. The true degree of stenosis is felt most likely to be at the lower end of this range. Dictated by: Raúl Chandra M.D. on 03/21/2020 at 11:31 Approved by: Raúl Chandra M.D. on 03/21/2020 at 11:34
== END ==
PROVIDERS: Family Provider Internal Medicine; PCP Internal Medicine; Referring Provider Internal Medicine; Visit Provider Internal Medicine
DX: I65.23 Occlusion and stenosis of bilateral carotid arteries (principal)
CPT/HCPCS: 93880

== ENCOUNTER → 2020-03-26 08:01 | Outpatient (CLI) | payer MEDICARE, OTHER, SELFPAY ==
[2019-02-19 15:29] VITALS: BMI 29.0
[2020-03-26 08:39] LABS: Alanine Aminotransferase 39 IU/L (<50); Albumin 4.4 g/dL (3.5-5.0); Albumin Globulin Ratio 1.3 (1.0-2.8); Alkaline Phosphatase 46 U/L (38-126); Aspartate Aminotransferase 47 IU/L (17-59); BUN Creatinine Ratio 21.6 (6-22); Blood Urea Nitrogen 30 mg/dL (9-20); Calcium 9.2 mg/dL (8.4-10.2); Carbon Dioxide 24 mmol/L (22-32); Chloride 102 mmol/L (98-107); Cholesterol 115 mg/dL (140-199); Estimated Glomerular Filt Rate 49.7 mL/min (>60); Globulin 3.4 g/dL (1.7-4.1); Glucose 101 mg/dL (80-110); HDL Cholesterol 44 mg/dL (40-60); HEMOLYSIS < 15 (0-50); LDL Cholesterol Calculated 59 mg/dL (<100); Potassium 4.3 mmol/L (3.4-5.1); Sodium 135 mmol/L (137-145); Total Protein 7.8 g/dL (6.3-8.2); Triglycerides 58 mg/dL (35-150)
== END ==
PROVIDERS: Family Provider Internal Medicine; PCP Internal Medicine; Referring Provider Internal Medicine; Visit Provider Internal Medicine
DX: E78.5 Hyperlipidemia, unspecified (principal)
CPT/HCPCS: 36415; 80053; 80061

== ENCOUNTER → 2020-04-27 11:53 | Outpatient (CLI) | payer MEDICARE, OTHER, SELFPAY ==
[2019-02-19 15:29] VITALS: BMI 29.0
[2020-04-28 13:59] LABS: COVID19 Sendout Not Detected (Not Detect)
== END ==
PROVIDERS: Family Provider Internal Medicine; PCP Internal Medicine; Visit Provider Physician Assistant
DX: Z11.59 Encounter for screening for other viral diseases (principal)
CPT/HCPCS: 87635

== ENCOUNTER → 2020-04-30 09:43 | Outpatient (CLI) | payer MEDICARE, OTHER, SELFPAY ==
[2019-02-19 15:29] VITALS: BMI 29.0
--- NOTE | 2020-04-30 17:57 | DI.NM.S_ITS ---
DATE OF SERVICE: 04/30/2020 PROCEDURE: Exercise perfusion study. INDICATIONS: Dyspnea on exertion, hypertension, history of smoking. RADIOPHARMACEUTICAL: 26.2 millicurie technetium-99m Myoview IV was injected at stress and 11.7 millicurie of technetium-99m Myoview IV was injected at stress. CARDIAC STRESS: The patient underwent exercise perfusion study under the supervision of an attending staff. The patient walked on [place]aga protocol for 6 minutes 01 seconds and achieved 96 percent of target heart rate and normal blood pressure response. No anginal symptoms. The patient completed the protocol. Baseline rhythm was sinus. During stress, no convincing ischemic changes. No significant arrhythmias seen. RAW DATA: There is increased subdiaphragmatic activity. GATED STUDY: Resting LV ejection fraction is 70 percent and stress LV ejection fraction 73 percent without any obvious wall motion abnormalities. Resting end- diastolic volume 99 mL. TID ratio 1.00, which is within normal limits. Lung/heart ratio 0.30, which is within normal limits. MYOCARDIAL PERFUSION: Stress supine and resting supine images revealed a small to moderate sized, moderate to severely decreased perfusion of distal inferior wall and inferior apex, which got completely resolved during prone images, suggestive of tissue attenuation artifact. Prone images revealed normal myocardial perfusion. CONCLUSION: I will call this study likely a normal myocardial perfusion study with evidence of diaphragmatic tissue attenuation artifact ,which got resolved during prone images. The patient walked on Naga protocol for about 6 minutes. Achieved 7 METs of workload. Normal hemodynamic response. No obvious ischemic electrocardiographic changes. No significant arrhythmias. As far as exercise perfusion study is concerned, this is a low-risk myocardial perfusion study. Arun Barajas - Shamika/gabby doc#: [id number]/job#: [id number] dd: 04/30/2020 16:48:00 dt: 04/30/2020 17:26:00 DICTATING MD/COPIES TO: Vi Astudillo MD COPIES MNE: NELLY;
== END ==
PROVIDERS: Family Provider Internal Medicine; PCP Internal Medicine; Referring Provider Internal Medicine Interventional Cardiology; Visit Provider Internal Medicine Interventional Cardiology
DX: R06.09 Other forms of dyspnea (principal); I10 Essential (primary) hypertension; Z87.891 Personal history of nicotine dependence
CPT/HCPCS: 78452; 93017; A9502

== ENCOUNTER → 2020-11-12 07:25 | Outpatient (CLI) | payer MEDICARE, OTHER, SELFPAY ==
[2019-02-19 15:29] VITALS: BMI 29.0
[2020-11-12 09:04] LABS: Alanine Aminotransferase 35 IU/L (<50); Albumin 4.4 g/dL (3.5-5.0); Albumin Globulin Ratio 1.3 (1.0-2.8); Alkaline Phosphatase 58 U/L (38-126); Aspartate Aminotransferase 43 IU/L (17-59); BUN Creatinine Ratio 15.2 (6-22); Bilirubin Total 0.7 mg/dL (0.2-1.3); Blood Urea Nitrogen 17 mg/dL (9-20); Calcium 9.5 mg/dL (8.4-10.2); Carbon Dioxide 27 mmol/L (22-32); Chloride 101 mmol/L (98-107); Cholesterol 110 mg/dL (140-199); Estimated Glomerular Filt Rate > 60.0 mL/min (>60); Globulin 3.4 g/dL (1.7-4.1); Glucose 95 mg/dL (80-110); HDL Cholesterol 41 mg/dL (40-60); HEMOLYSIS < 15 (0-50); LDL Cholesterol Calculated 52 mg/dL (<100); Potassium 5.1 mmol/L (3.4-5.1); Sodium 134 mmol/L (137-145); Total Protein 7.8 g/dL (6.3-8.2); Triglycerides 87 mg/dL (35-150)
== END ==
PROVIDERS: Family Provider Internal Medicine; PCP Internal Medicine; Referring Provider Internal Medicine Interventional Cardiology; Visit Provider Internal Medicine
DX: I10 Essential (primary) hypertension (principal); E78.5 Hyperlipidemia, unspecified; E78.2 Mixed hyperlipidemia
CPT/HCPCS: 36415; 80053; 80061

== ENCOUNTER → 2021-04-30 07:58 | Outpatient (CLI) | payer MEDICARE, OTHER, SELFPAY ==
[2020-11-12 11:06] VITALS: BMI 29.0
[2021-04-30 09:36] LABS: Prostate Specific Antigen 0.537 ng/mL (0.10-4.00)
== END ==
PROVIDERS: Family Provider Internal Medicine; PCP Internal Medicine; Referring Provider Specialist; Visit Provider Specialist
DX: N40.0 Benign prostatic hyperplasia without lower urinary tract symptoms (principal)
CPT/HCPCS: 36415; 84153

== ENCOUNTER → 2021-06-20 12:27 | Outpatient (CLI) | payer MEDICARE, OTHER, SELFPAY ==
[2020-11-12 11:06] VITALS: BMI 29.0
[2021-06-20 12:57] LABS: COVID19 -Nasal RAPID Negative (Negative)
== END ==
PROVIDERS: Family Provider Internal Medicine; PCP Internal Medicine; Visit Provider Nurse Practitioner Family
DX: Z20.822 Contact with and (suspected) exposure to COVID-19 (principal)
CPT/HCPCS: 87635

== ENCOUNTER → 2021-07-01 08:04 | Outpatient (CLI) | payer MEDICARE, OTHER, SELFPAY ==
[2020-11-12 11:06] VITALS: BMI 29.0
== END ==
PROVIDERS: Family Provider Internal Medicine; PCP Internal Medicine; Visit Provider Nurse Practitioner Family
DX: R30.9 Painful micturition, unspecified (principal)
CPT/HCPCS: 87086

== ENCOUNTER → 2021-07-15 07:57 | Outpatient (CLI) | payer MEDICARE, OTHER, SELFPAY ==
[2020-11-12 11:06] VITALS: BMI 29.0
[2021-07-15 09:45] LABS: Glucose 106 mg/dL (80-110); Potassium 4.9 mmol/L (3.4-5.1); Sodium 134 mmol/L (137-145)
== END ==
PROVIDERS: Family Provider Internal Medicine; PCP Internal Medicine; Referring Provider Specialist; Visit Provider Specialist
DX: N40.0 Benign prostatic hyperplasia without lower urinary tract symptoms (principal)
CPT/HCPCS: 36415; 80048

== ENCOUNTER → 2021-08-11 13:06 | Outpatient (CLI) | payer MEDICARE, OTHER, SELFPAY ==
[2020-11-12 11:06] VITALS: BMI 29.0
--- NOTE | 2021-08-11 13:19 | DI.CT.S_ITS ---
PROCEDURE: CT ABDOMEN PELVIS WO/W CON INDICATIONS: hematuria TECHNIQUE: Optional 5 mm thick noncontrast images acquired from the diaphragm to the symphysis pubis. After the administration of intravenous contrast, 5 mm thick images acquired from the diaphragm to the symphysis pubis after a 10-minute delay. 2 mm thick coronal and sagittal reformats were then performed of the kidneys and ureters. For radiation dose reduction, the following was used: automated exposure control, adjustment of mA and/or kV according to patient size. COMPARISON: [facility], CT, CHEST/ABD/PEL WITH CONTRAST, 05/18/2012, 15:16. FINDINGS: Image quality: Excellent. Lung bases: Lung bases are clear. Heart size is normal. Urinary system: Both kidneys are normal in size, without hydronephrosis or nephrolithiasis on pre-contrast images. There is some atrophy of the left kidney, chronic. 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 No perinephric fat stranding. There is normal bilateral renal enhancement. Renal calyces appear normal in morphology when filled with contrast. Opacified portions of both ureters demonstrate normal caliber. Prostate enlargement. Mild diffuse bladder wall thickening, commonly seen. No calcified bladder stones. Other solid organs: Liver is normal in size and enhancement. Gallbladder is unremarkable . Biliary system is non dilated. Pancreas enhances normally. Spleen is normal in size and enhancement. No adrenal nodules. Peritoneum and bowel: Redundant colon. No dilated loops. Scattered diverticulosis without evidence of diverticulitis. No free fluid or air. Nodes and vessels: No retroperitoneal or mesenteric adenopathy by size criteria. Aorta and inferior vena cava are normal in size. Abdominal wall: No ventral hernias. Pelvis: No pathologic free pelvic fluid. No inguinal hernias or adenopathy. Bones: No suspicious bony lesions. No acute vertebral body compression fractures. Chronic moderate T12 compression, chronic moderate L2 compression. IMPRESSION: 1. Remote left renal artery aneurysm repair. 2. No renal stones, ureteral stones, hydronephrosis, or findings suspicious for malignancy. 3. Enlarged prostate with mild bladder wall thickening. 4. Chronic osteoporotic compressions. Dictated by: Isauro Spence M.D. on 08/11/2021 at 14:27 Approved by: Isauro Spence M.D. on 08/11/2021 at 14:34
== END ==
PROVIDERS: Family Provider Internal Medicine; PCP Internal Medicine; Referring Provider Specialist; Visit Provider Specialist
DX: N30.01 Acute cystitis with hematuria (principal); G45.9 Transient cerebral ischemic attack, unspecified; R39.9 Unspecified symptoms and signs involving the genitourinary system; N52.9 Male erectile dysfunction, unspecified; N40.0 Benign prostatic hyperplasia without lower urinary tract symptoms
CPT/HCPCS: 74178

== ENCOUNTER → 2022-05-27 08:06 | Outpatient (CLI) | payer MEDICARE, OTHER, SELFPAY ==
[2020-11-12 11:06] VITALS: BMI 29.0
--- NOTE | 2022-05-27 08:08 | DI.RAD.S_ITS ---
PROCEDURE: XR FEMUR RT MIN 2V INDICATIONS: right hip and leg pain TECHNIQUE: 4 views of the femur were acquired. COMPARISON: None. FINDINGS: Bones: No fractures or dislocations. No suspicious bony lesions. Soft tissues: No suspicious soft tissue calcifications or masses. IMPRESSION: No suspicious osseous lesion in the right femur. Dictated by: Trent Jimenez M.D. on 05/27/2022 at 9:30 Approved by: Trent Jimenez M.D. on 05/27/2022 at 9:31
--- NOTE | 2022-05-27 08:08 | DI.RAD.S_ITS ---
PROCEDURE: XR HIP W PEL IF DONE RT 2V INDICATIONS: right hip and leg pain TECHNIQUE: AP pelvis with lateral view(s) of the right hip(s). COMPARISON: [facility], CR, XR FEMUR RT MIN 2V, 05/27/2022, 8:27. FINDINGS: Bones: No fractures or dislocations. Mild to moderate bilateral hip joint space narrowing. Acetabular roof sclerosis. Small osteophytes. Pelvic ring appears intact. Degenerative change at the pubic symphysis and lower lumbar spine and SI joints. No suspicious bony lesions. Soft tissues: The visualized bowel gas pattern is normal. No suspicious soft tissue calcifications. Mesh projecting over the left pelvis. IMPRESSION: Moderate bilateral hip DJD. Dictated by: Trent Jimenez M.D. on 05/27/2022 at 9:27 Approved by: Trent Jimenez M.D. on 05/27/2022 at 9:30
== END ==
PROVIDERS: PCP Internal Medicine; Referring Provider Internal Medicine; Visit Provider Internal Medicine
DX: M16.0 Bilateral primary osteoarthritis of hip (principal); M25.551 Pain in right hip; M79.604 Pain in right leg
CPT/HCPCS: 73502; 73552

== ENCOUNTER → 2022-09-06 11:51 | Outpatient (CLI) | payer MEDICARE, OTHER, SELFPAY ==
[2020-11-12 11:06] VITALS: BMI 29.0
[2022-09-06 12:49] LABS: Influenza A - CEPHEID Flu A NEGATIVE (NEGATIVE); Influenza B - CEPHEID Flu B NEGATIVE (NEGATIVE); Respiratory Syncytial Virus POSITIVE (Negative)
[2022-09-06 13:18] LABS: COVID-19 CEPHEID 4-PLEX PCR Negative (Negative)
== END ==
PROVIDERS: PCP Internal Medicine; Visit Provider Nurse Practitioner Family
DX: J06.9 Acute upper respiratory infection, unspecified (principal)
CPT/HCPCS: 0241U

== ENCOUNTER 2023-12-08 11:55 | Inpatient (IN) | payer OTHER, SELFPAY ==
[2023-12-08] VITALS (11 sets, daily range): BP systolic 145–172; BP diastolic 67–81; PULSE 60–110; RESP 18–34; TEMP 36.2–37; O2SAT 97–99; BMI 29.0; BMI 32.2
--- NOTE | 2023-12-08 12:08 | DI.CT.S_ITS ---
PROCEDURE: CT ANGIO HEAD AND NECK INDICATIONS: diff speaking, had tia prior week TECHNIQUE: After the administration of intravenous contrast, 1 mm thick sections acquired from the aortic arch through the [place] of [place]. 3-dimensional nhrnlqy-kpwvbinrh-wctpjchupu (MIP) and/or volume rendering reformats were acquired of the central intracranial vasculature and neck separately. For radiation dose reduction, the following was used: automated exposure control, adjustment of mA and/or kV according to patient size. COMPARISON: [facility], US, US CAROTID BILATERAL, 11/28/2023, 10:05. [facility], CT, CT ANGIO HEAD AND NECK, 11/27/2023, 15:05. [facility], MR, MR BRAIN WITHOUT CONTRAST, 11/27/2023, 17:02. [facility], CT, CT STROKE, 12/08/2023, 12:12. FINDINGS: Image quality: This examination is limited by involuntary motion artifact. BRAIN: CSF spaces: Ventricles are normal in size and shape. Basal cisterns are patent. No extra-axial fluid collections. Brain: No significant abnormality of the brain can be seen. Skull and face: Calvarium and facial bones appear intact, without suspicious lesions. Orbits appear normal. Sinuses: Moderate mucosal thickening can be seen within the right maxillary sinus. Ztir-lo-ndwbgkhh mucosal thickening can be seen within the right anterior ethmoid air cells and the right frontal sinus. Milder mucosal thickening can be seen elsewhere within the paranasal sinuses. HEAD CT ANGIOGRAPHY: Anterior circulation: Intracranial internal carotid arteries are normal in size and flow. The flow within the paired anterior cerebral arteries is normal and symmetric. The flow within the middle cerebral arteries is normal and symmetric. The anterior communicating artery is seen. No aneurysms are seen. Posterior circulation: Visualized portions of the vertebral arteries demonstrate normal caliber, and join to form a normal appearing basilar artery. Flow within the posterior cerebral arteries is normal and symmetric. No aneurysms are seen. NECK CT ANGIOGRAPHY: Carotid system: The great vessels demonstrate a conventional anatomy as they arise from the aortic arch. The origins of the common carotid arteries appear patent. The common carotid arteries demonstrate normal caliber and courses. The bifurcation regions demonstrate atherosclerotic irregularity and calcification. There is 80-90% narrowing seen involving the origin of the right internal carotid artery. There is 50-60% narrowing seen involving the origin of the left internal carotid artery. The more distal internal carotid arteries demonstrate normal course and caliber. Posterior circulation: The origins of the vertebral arteries both appear widely patent. The more superior extracranial portions of both vertebral arteries also demonstrate normal courses and calibers. The left vertebral artery is dominant to the right. Soft tissues: Visualized neck soft tissues demonstrate no suspicious abnormalities. Bones: No suspicious bony lesions. Visualized cervical spine appears normally aligned. IMPRESSION: No significant intracranial arterial abnormality is seen. There is 80-90% narrowing seen at the origin of the right internal carotid artery. 50-60% narrowing can be seen involving the origin left internal carotid artery. No significant vertebral artery abnormality is seen. If there is strong clinical suspicion for an acute stroke, please consider a brain MRI for further evaluation, as it is more sensitive (assuming that there is no contraindication to MRI). Any quantitative measurements of stenosis were performed using NASCET criteria. Dictated by: Raúl Chandra M.D. on 12/08/2023 at 11:46 Approved by: Raúl Chandra M.D. on 12/08/2023 at 11:51
--- NOTE | 2023-12-08 12:08 | DI.RAD.S_ITS ---
PROCEDURE: XR CHEST 1V INDICATIONS: Stroke. TECHNIQUE: One view of the chest was acquired. COMPARISON: [facility], CT, CT ANGIO HEAD AND NECK, 12/08/2023, 12:15. [facility], CR, XR CHEST 2V, 11/01/2018, 9:02. FINDINGS: Surgical changes and devices: None. Lungs and pleura: Left-sided interstitial airspace opacities. Mediastinum: Mediastinal contours appear normal. Heart size is normal. Bones and chest wall: No suspicious bony lesions. Overlying soft tissues appear unremarkable. IMPRESSION: Left interstitial airspace opacities, either atelectasis or developing infection, less likely aspiration. Dictated by: Fredrick Crawley M.D. on 12/08/2023 at 13:54 Approved by: Fredrick Crawley M.D. on 12/08/2023 at 13:58
--- NOTE | 2023-12-08 12:08 | DI.CT.S_ITS ---
PROCEDURE: CT STROKE INDICATIONS: Positive BE-FAST, Stroke symptoms TECHNIQUE: Noncontrast 4.5 mm thick angled axial sections acquired from the foramen magnum to the vertex, with coronal reformats. For radiation dose reduction, the following was used: automated exposure control, adjustment of mA and/or kV according to patient size. COMPARISON: [facility], CT, CT HEAD TPA, 11/27/2023, 14:12. FINDINGS: Image quality: Diagnostic. CSF spaces: Basal cisterns are patent. No extra-axial fluid collections. The ventricles are symmetric in size and shape. Brain: No intracranial bleeds or masses. There is cerebral volume loss for age, with resultant ventricular and sulcal prominence. There are periventricular and deep white matter chronic small vessel ischemic changes. There is intracranial internal carotid artery atherosclerosis. Skull and face: Calvarium and visualized facial bones appear intact, without suspicious lesions. Sinuses: Mucosal thickening in both frontal sinuses and right maxillary sinus. mastoids are clear. IMPRESSION: 1. No acute intracranial abnormalities. 2. Cerebral volume loss and chronic microvascular ischemic changes. 3. Paranasal sinus disease. The result was discussed with Dr. Monroe prior to dictation. This study fulfills neurological imaging criteria for inclusion or exclusion of acute stroke therapies based on available published neurological guidelines. Dictated by: Igor Hsu M.D. on 12/08/2023 at 12:24 Approved by: Igor Hsu M.D. on 12/08/2023 at 12:27
[2023-12-08 12:25] LABS: Add Manual Diff / Slide Review NO; Basophils Absolute Auto 100 /uL (0-100); Eosinophils Absolute Auto 200 /uL (0-450); Eosinophils Percent Auto 1.6 % (2-4); Hematocrit 38.1 % (41-53); Hemoglobin 13.2 g/dL (13.5-17.5); Lymphocytes Absolute Auto 1100 /uL (1100-4500); Lymphocytes Percent Auto 11.6 % (25-40); Mean Corpuscular HGB Conc 34.5 % (30-36); Mean Corpuscular Volume 92.7 fL (80-100); Monocytes Absolute Auto 1000 /uL (0-900); Monocytes Percent Auto 10.6 % (3-14); Neutrophils Absolute Auto 7200 /uL (1500-7000); Neutrophils Percent Auto 75.2 % (50-75); Platelet Count 308 X10^3/uL (150-400); Red Blood Cell Count 4.11 X10^6/uL (4.5-5.9); Red Cell Distribution Width 13.7 % (11.6-14.8); White Blood Cell Count 9.6 X10^3/uL (4.5-11.0)
[2023-12-08 12:33] LABS: INR 1.5 (0.9-1.3); Prothrombin Time 16.7 SECONDS (9.4-12.5)
[2023-12-08 12:36] LABS: PTT Partial Thromboplastin Tim 37 SECONDS (25.1-36.5)
--- NOTE | 2023-12-08 12:40 | PC.NURSE ---
pt arrived to ED via POV. states that pt slumped over in car while they were out doing errands and she thught that he was just taking a nap. confirms that pt had difficulty finding words and was slurring speech and that pt was difficult to arouse. Pt was seen at [facility] about 1 week ago for similar symptoms. also states that pt has recent dx of dementia. Pt taken to CT and 20G IV placed in left wrist by RN. Pt opens eyes but is very difficult to arouse. Arousable to touch. Making gurgling noises & having trouble finding words. VS WNL. EKG done.
--- NOTE | 2023-12-08 12:51 | ED.NEUROSD ---
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 Patient's states that they thought he had a stroke last week and was hospitalized at [facility] for several days. Was discharged home thought that he was having hypotension secondary to diuresis that cause stroke-like symptoms but was found to have some blockage in his carotids and has been referred to vascular. Patient is on Eliquis and takes regularly. Patient's history is obtained from his . He does not attempt to follow commands but is unable to speak more follow most commands. Patient is unsure if he has atrial fibrillation but she states he was put on Eliquis after being found to have a PFO send several medications for hypertension, dyslipidemia has known congenital kidney with chronic kidney disease. She states today they were driving in the car and around between 930 and 10:30 a.m. he sort of slumped over and kept saying he could not talk could not move. She states he has not really had any improvement. She states he has talked to her a few times but seems to be struggling. She noted it seemed to be hard for patient to move. Patient was not having any symptoms prior to this and she states that he oxygen with no issues after discharge from [facility]. On Anticoagulants: Yes (Eliquis) Related Data Home Medications Medication Instructions Recorded Confirmed clonidine HCl 0.2 mg tablet 0.2 mg PO BID ##0 08/13/11 09/10/21 (Catapres) clopidogrel 75 mg tablet 75 mg PO QPM 02/19/19 09/10/21 losartan 50 mg tablet 50 mg PO BID 02/19/19 09/10/21 amlodipine 10 mg tablet 10 mg PO DAILY 05/05/21 09/10/21 rosuvastatin 10 mg tablet 10 mg PO QPM 05/05/21 09/10/21 Previous Rx's Medication Instructions Recorded aspirin 81 mg tablet,delayed 81 mg PO DAILY #30 tabs 02/20/19 release diltiazem HCl 180 mg 180 mg PO DAILY #30 caps 02/20/19 capsule,extended release 24 hr phenazopyridine 200 mg tablet 200 mg PO TID 6 doses #6 tabs 07/01/21 (Pyridium) lidocaine HCl 2 % mucosal jelly in 1 applic topical QD-TID PRN 07/07/21 applicator (Glydo) catheter insertion #75 mL tamsulosin 0.4 mg capsule 0.4 mg PO QPM #90 caps 06/28/23 Allergies Allergy/AdvReac Type Severity Reaction Status Date / Time benazepril [From Lotensin] Allergy Verified 09/10/21 14:17 Review of Systems Review of Systems ROS Unobtainable: All systems reviewed & are unremarkable except as noted in HPI and below Hematologic/Lymphatic On Anticoagulants: Yes (Eliquis) Patient History Medical History Bladder neck contracture Hematuria Lower urinary tract symptoms (LUTS) Erectile dysfunction BPH loc w/o ur obs/LUTS CVA (cerebral vascular accident) Peripheral vascular disease Atherosclerosis History of stent insertion of renal artery Renal artery stenosis BPH (benign prostatic hyperplasia) Hypertension Hyperlipidemia Surgical History H/O vasectomy H/O hernia repair Hx of appendectomy S/P TURP Family History Father CVA (cerebral vascular accident) Mother COPD (chronic obstructive pulmonary disease) Sister Adopted Social History household members: spouse lives independently: Yes Smoking Status: Former smoker alcohol intake: never Smoking Status: Former smoker Substance Use Type: does not use Exam Narrative Exam Narrative: GEN: Elderly appearing male, patient has difficulty opening his eyes but does squeeze on the right command and attempts to sit forward when I engage him in conversation, patient appears to be in moderate distress. HEENT: Atraumatic, pupils are equal round reactive to light, extraocular movements are intact, nares are clear, Throat is clear without any exudates, erythema, tonsillar enlargement or uvular deviation, patient does not appear to have left facial droop. HEART: Regular rate and rhythm without murmur, clicks, rubs. Pulses are equal in upper and lower extremities. Patient has a edema bilateral lower extremities. LUNGS:Lungs clear to auscultation, no wheezes, rales, crackles, chest moves symmetrically, no tachypnea accessory muscle use. ABD:bowel sounds normal, soft, non-tender, no guarding, rebound, rigidity, no masses noted, no hepatosplenomegaly :No CVA tenderness MSCL: Non-tender, no muscle atrophy, patient unable to engage in full NIH does appear to be weak on the left is able to health director on the right and unable in the left, has difficulty with movement of both legs. He does attempt to sit forward. NEURO:CN 2-12 intact, sensation normal, reflexes 2/4 upper and lower extremities. Unable to participate in heel lang for [id number]-[id number]-[id number]. Initial Vital Signs Initial Vital Signs: Vital Signs Temperature 98.6 F 12/08/23 12:00 Pulse Rate 71 12/08/23 12:00 Respiratory Rate 18 12/08/23 12:00 Blood Pressure 166/74 H 12/08/23 12:00 Pulse Oximetry 97 12/08/23 12:00 Oxygen Delivery Method Room Air 12/08/23 12:00 Scores NIH Stroke Scale Level of Conciousness: Not alert, but arousable by minor stim to obey, answer or respond Ask month/age: Answers neither question correctly, aphasic, stuporous, coma Open/close eyes, close hand: Performs one task correctly Facial palsy: Partial paralysis, total or near total paralysis of lower face Course Orders Ordered: ED Orders 12/08/23 12:[address] angio head and neck Stat XR chest 1V Stat Urinalysis and Microscopic Stat Urine Drug Screen, Rapid Stat EKG-12 Lead Stat 12/08/23 12:17 Complete Blood Count AUTO DIFF Stat Comprehensive Metabolic Panel Stat Ethanol (ETOH) Stat Magnesium Stat PTT Partial Thromboplastin Rashi Stat Prothrombin Time INR Stat Troponin & CK Cardiac Panel Stat 12/08/23 12:48 Consult to Speech Therapy Evaluate & Treat 12/08/23 12:55 Covid-19 + FLU A/B + RSV - PCR Stat Ondansetron HCl (Ondansetron 4 Mg/2 Ml Inj) 4 mg IV NOW PRN PRN Reason: Nausea And Vomiting Ondansetron HCl (Ondansetron 4 Mg Odt) 4 mg SL NOW PRN PRN Reason: Nausea And Vomiting Discontinued Medications Aspirin (Aspirin 300 Mg Supp) 300 mg IL NOW ONE Stop: 12/08/23 13:31 Last Admin: 12/08/23 13:47 Dose: 300 mg Documented By: ALMAS Vital Signs Vital signs: Vital Signs - 8 hr 12/08/23 12:00 12/08/23 12:30 12/08/23 13:00 Temperature 98.6 F Pulse Rate 71 110 H Respiratory Rate 18 23 Blood Pressure 166/74 H 163/77 H 149/67 H Pulse Oximetry 97 99 98 Oxygen Delivery Method Room Air Room Air Room Air MDM - Neuro Symptoms/Deficit Lab Data 12/08/23 12:17 12/08/23 12:17 Labs: Lab Results 12/08/23 12/08/23 Range/Units 12:17 12:55 WBC 9.6 (4.5-11.0) X10^3/uL RBC 4.11 L (4.5-5.9) X10^6/uL Hgb 13.2 L (13.5-17.5) g/dL Hct 38.1 L (41-53) % MCV 92.7 (80-100) fL MCH 32.0 (26-34) PG MCHC 34.5 (30-36) % RDW 13.7 (11.6-14.8) % Plt Count 308 (150-400) X10^3/uL Neut % (Auto) 75.2 H (50-75) % Lymph % (Auto) 11.6 L (25-40) % [place] % (Auto) 10.6 (3-14) % Eos % (Auto) 1.6 L (2-4) % Baso % (Auto) 1.0 (0-2) % Neut # (Auto) 7200 H (1330-5960) /uL Lymph # (Auto) 1100 (7075-3078) /uL [place] # (Auto) 1000 H (0-900) /uL Eos # (Auto) 200 (0-450) /uL Baso # (Auto) 100 (0-100) /uL PT 16.7 H (9.4-12.5) SECONDS INR 1.5 H (0.9-1.3) APTT 37 H (25.1-36.5) SECONDS Sodium 126 L (137-145) mmol/L Potassium 4.9 (3.4-5.1) mmol/L Chloride 97 L (98-107) mmol/L Carbon Dioxide 16 L (22-32) mmol/L BUN 17 (9-20) mg/dL Creatinine 1.04 (0.66-1.25) mg/dL Estimated GFR > 60 (>60) mL/min BUN/Creatinine Ratio 16.3 (6-22) Glucose 133 H (80-110) mg/dL Calcium 9.5 (8.4-10.2) mg/dL Magnesium 1.9 (1.6-2.3) mg/dL Total Bilirubin 1.2 (0.2-1.3) mg/dL AST 50 (17-59) IU/L ALT 26 (<50) IU/L Alkaline Phosphatase 41 (38-126) U/L Total Creatine Kinase 215 H (55-170) U/L Troponin I 0.013 (0.01-0.034) ng/mL Total Protein 8.7 H (6.3-8.2) g/dL Albumin 4.9 (3.5-5.0) g/dL Globulin 3.8 (1.7-4.1) g/dL Albumin/Globulin Ratio 1.3 (1.0-2.8) Ethyl Alcohol < 10 ( - 10) mg/dL SARS-CoV-2 (PCR) Negative (Negative) Influenza A (RT-PCR) Flu a negative (NEGATIVE) Influenza B (RT-PCR) Flu b negative (NEGATIVE) RSV (PCR) Negative (Negative) Point of Care Testing Glucose POC [address] scan - head: Radiologist's Impression: Close Head/Neck CTA (Signed) Raúl Chandra - 12/08/23 Chest X-Ray 12/08/[address] (Signed) Igor Hsu - 12/08/23 Hip X-Ray (Signed) Trent Jimenez - 05/27/22 Femur X-Ray (Signed) Call,Trent - 05/27/22 Abdomen/Pelvis CT (Signed) Isauro Spence - 08/11/21 Radiology Report (Cancelled) Vi Astudillo - 04/30/20 Myocardial Perfusion Scan Nuc Med (Signed) Vi Astudillo - 04/30/20 Carotid Doppler Study (Signed) Raúl Chandra - 03/21/20 Vascular Ultrasound (Signed) Kartik Gutierrezdidiah - 05/31/19 Echocardiogram Ultrasound (Signed) Trisha Faulknerdee dee - 02/19/19 Brain MRI (Signed) Isauro Spence - 02/19/19 Telemetry Strips 02/19/[address] (Signed) Isauro Spence - 02/19/19 Abdominal Arterial Study US (Signed) Raúl Chandra - 12/11/18 Chest X-Ray (Signed) Alex Azul - 11/01/18 [place] [address] CT Scan Report Signed Patient: Arun Barajas MR#: [id number] : 1945 Acct:[id number] Age/Sex: 78 / M Date of Service: 12/08/23 Loc: ED Accession Number: [id number] Procedure: CT Stroke Ordering Provider: Polly Monroe D.O. PROCEDURE: CT STROKE INDICATIONS: Positive BE-FAST, Stroke symptoms TECHNIQUE: Noncontrast 4.5 mm thick angled axial sections acquired from the foramen magnum to the vertex, with coronal reformats. For radiation dose reduction, the following was used: automated exposure control, adjustment of mA and/or kV according to patient size. COMPARISON: [facility], CT, CT HEAD TPA, 11/27/2023, 14:12. FINDINGS: Image quality: Diagnostic. CSF spaces: Basal cisterns are patent. No extra-axial fluid collections. The ventricles are symmetric in size and shape. Brain: No intracranial bleeds or masses. There is cerebral volume loss for age, with resultant ventricular and sulcal prominence. There are periventricular and deep white matter chronic small vessel ischemic changes. There is intracranial internal carotid artery atherosclerosis. Skull and face: Calvarium and visualized facial bones appear intact, without suspicious lesions. Sinuses: Mucosal thickening in both frontal sinuses and right maxillary sinus. mastoids are clear. IMPRESSION: 1. No acute intracranial abnormalities. 2. Cerebral volume loss and chronic microvascular ischemic changes. 3. Paranasal sinus disease. The result was discussed with Dr. Monroe prior to dictation. This study fulfills neurological imaging criteria for inclusion or exclusion of acute stroke therapies based on available published neurological guidelines. Dictated by: Igor Hsu M.D. on 12/08/2023 at 12:24 Approved by: Igor Hsu M.D. on 12/08/2023 at 12:27 CTA - brain/neck: Radiologist's Impression: [address] [address] [address] Scan Report Signed Patient: Arun Barajas MR#: [id number] : 1945 Acct:[id number] Age/Sex: 78 / M Date of Service: 12/08/23 Loc: ED Accession Number: [id number] Procedure: CT angio head and neck Ordering Provider: Polly Monroe D.O. PROCEDURE: CT ANGIO HEAD AND NECK INDICATIONS: diff speaking, had tia prior week TECHNIQUE: After the administration of intravenous contrast, 1 mm thick sections acquired from the aortic arch through the [place]. 3-dimensional mfihchz-ohnrwxyeq-itpudtextl (MIP) and/or volume rendering reformats were acquired of the central intracranial vasculature and neck separately. For radiation dose reduction, the following was used: automated exposure control, adjustment of mA and/or kV according to patient size. COMPARISON: [facility], US, US CAROTID BILATERAL, 11/28/2023, 10:05. [facility], CT, CT ANGIO HEAD AND NECK, 11/27/2023, 15:05. [facility], MR, MR BRAIN WITHOUT CONTRAST, 11/27/2023, 17:02. [facility], CT, CT STROKE, 12/08/2023, 12:12. FINDINGS: Image quality: This examination is limited by involuntary motion artifact. BRAIN: CSF spaces: Ventricles are normal in size and shape. Basal cisterns are patent. No extra-axial fluid collections. Brain: No significant abnormality of the brain can be seen. Skull and face: Calvarium and facial bones appear intact, without suspicious lesions. Orbits appear normal. Sinuses: Moderate mucosal thickening can be seen within the right maxillary sinus. Csyn-ty-ziehvnoy mucosal thickening can be seen within the right anterior ethmoid air cells and the right frontal sinus. Milder mucosal thickening can be seen elsewhere within the paranasal sinuses. HEAD CT ANGIOGRAPHY: Anterior circulation: Intracranial internal carotid arteries are normal in size and flow. The flow within the paired anterior cerebral arteries is normal and symmetric. The flow within the middle cerebral arteries is normal and symmetric. The anterior communicating artery is seen. No aneurysms are seen. Posterior circulation: Visualized portions of the vertebral arteries demonstrate normal caliber, and join to form a normal appearing basilar artery. Flow within the posterior cerebral arteries is normal and symmetric. No aneurysms are seen. NECK CT ANGIOGRAPHY: Carotid system: The great vessels demonstrate a conventional anatomy as they arise from the aortic arch. The origins of the common carotid arteries appear patent. The common carotid arteries demonstrate normal caliber and courses. The bifurcation regions demonstrate atherosclerotic irregularity and calcification. There is 80-90% narrowing seen involving the origin of the right internal carotid artery. There is 50-60% narrowing seen involving the origin of the left internal carotid artery. The more distal internal carotid arteries demonstrate normal course and caliber. Posterior circulation: The origins of the vertebral arteries both appear widely patent. The more superior extracranial portions of both vertebral arteries also demonstrate normal courses and calibers. The left vertebral artery is dominant to the right. Soft tissues: Visualized neck soft tissues demonstrate no suspicious abnormalities. Bones: No suspicious bony lesions. Visualized cervical spine appears normally aligned. IMPRESSION: No significant intracranial arterial abnormality is seen. There is 80-90% narrowing seen at the origin of the right internal carotid artery. 50-60% narrowing can be seen involving the origin left internal carotid artery. No significant vertebral artery abnormality is seen. If there is strong clinical suspicion for an acute stroke, please consider a brain MRI for further evaluation, as it is more sensitive (assuming that there is no contraindication to MRI). Any quantitative measurements of stenosis were performed using NASCET criteria. Dictated by: Raúl Chandra M.D. on 12/08/2023 at 11:46 Approved by: Raúl Chandra M.D. on 12/08/2023 at 11:51 ECG Data Attestation: I personally reviewed and interpreted this ECG as follows: Interpretation: Atrial fibrillation rate of 76, QRS 80 QTC 452. MDM Narrative Medical decision making narrative: 78-year-old male with concern for stroke. Patient unable to perform NIH. Head CT is negative for bleed or mass CT angio shows 80-90% narrowing at the ICA but no large occlusive thrombus. Patient isn't atrial fibrillation on EKG although he is anticoagulant Eliquis which does not have became a tPA candidate. Patient is slightly hypertensive here and 160s but otherwise appropriate vitals. notes that they were told he needs to follow up with vascular secondary to his carotids. Labs show white count of 9.6, hemoglobin of 13 platelets of 308 leftward shift. INR is 1.5, chemistry shows sodium 126, potassium 4 9 chloride 97 CO2 of 16 creatinine 1.04 glucose of 133 total CK is [address] shows no acute change CT angio shows no significant intracranial abnormality there is 80 90% narrowing at the origin of the right ICA, 50-60% narrowing of the original left ICA no significant vertebral artery abnormality. EKG shows atrial fibrillation rate controlled at 76. Neurology consult [facility]: Spoke with Dr. Shore, did review electrolytes are still pending including sodium. Agrees that patient is not a candidate for tPA with his recent use of Eliquis. Reviewed patient's findings that he had a PFO found outside facility has known carotid been told to follow up with vascular in his findings on CT angio today. She recommends admission, MR brain, repeat echo to check for any LV thrombus, A1c BNP and lipids if not done recently. She does note that if he is positive on his MR for right-sided stroke to re-contact as they would potentially do a carotid intervention but patient is not an IR candidate for thrombectomy. Concern for stroke today patient had sudden change in mental condition. He does have some hyponatremia that appears new, initial head CT was negative CT angio does show a right carotid blockage. He is able to squeeze on the right but the left but did have some difficulty with commands. Spoke with hospitalist Dr. Strong accepts. 1440: On rechecked update patient's has been station has not improved he has a bit more conversant still does have some word searching. Still appears to have quite a bit more strength on the right than the left. Patient does have some repetitive questioning. Updated patient and family on plan. They expressed understanding including the . Discharge Plan Departure Patient Disposition: Admitted As Inpatient Clinical Impression: Hyponatremia, Acute CVA (cerebrovascular accident) Admit Date/Time: 12/08/23 14:25 Admit Provider: Ken Strong
[2023-12-08 13:38] LABS: Influenza A - CEPHEID Flu A NEGATIVE (NEGATIVE); Influenza B - CEPHEID Flu B NEGATIVE (NEGATIVE); Respiratory Syncytial Virus Negative (Negative)
[2023-12-08 13:45] LABS: Alanine Aminotransferase 26 IU/L (<50); Albumin 4.9 g/dL (3.5-5.0); Albumin Globulin Ratio 1.3 (1.0-2.8); Alkaline Phosphatase 41 U/L (38-126); Aspartate Aminotransferase 50 IU/L (17-59); BUN Creatinine Ratio 16.3 (6-22); Bilirubin Total 1.2 mg/dL (0.2-1.3); Blood Urea Nitrogen 17 mg/dL (9-20); Calcium 9.5 mg/dL (8.4-10.2); Carbon Dioxide 16 mmol/L (22-32); Chloride 97 mmol/L (98-107); Creatine Kinase 215 U/L (55-170); Estimated Glomerular Filt Rate > 60 mL/min (>60); Ethanol (ETOH) < 10 mg/dL; Globulin 3.8 g/dL (1.7-4.1); Glucose 133 mg/dL (80-110); Magnesium 1.9 mg/dL (1.6-2.3); Sodium 126 mmol/L (137-145); Total Protein 8.7 g/dL (6.3-8.2)
[2023-12-08 13:46] LABS: COVID-19 CEPHEID 4-PLEX PCR Negative (Negative)
[2023-12-08 13:46] LABS: HEMOLYSIS 145 (0-50); Potassium 4.9 mmol/L (3.4-5.1)
[2023-12-08] MEDS: ASPIRIN 300 MG SUPP PR (13:47)
[2023-12-08 13:56] LABS: Troponin I 0.013 ng/mL (0.01-0.034)
--- NOTE | 2023-12-08 15:01 | DI.MRI.S_ITS ---
PROCEDURE: MR HEAD/BRAIN WO CON INDICATIONS: stroke TECHNIQUE: Noncontrast axial T1 spin echo, axial T2 fast spin echo, sagittal and axial FLAIR, coronal T2 fast spin echo, axial gradient echo, axial diffusion and ADC through the brain. COMPARISON: None. FINDINGS: Image quality: Excellent. CSF Spaces: Basal cisterns are patent. No extra-axial fluid collections. Ventricles are normal in size and shape. Brain: No intracranial masses or hemorrhage. Blank/white matter interface is normal. Brainstem appears normal. Diffusion-weighted sequence is unremarkable without evidence of acute infarct. Normal intravascular flow voids are present. Skull and face: Calvarium has normal marrow signal. Orbits appear normal. Sinuses: Right maxillary sinus mucosal thickening measures up to 5 mm. Internal mucosal debris noted. Right frontal sinus mucosal thickening noted as well. IMPRESSION: Atrophy and chronic ischemic change without acute infarct, hemorrhage or mass lesion. Right maxillary and right frontal mucosal sinus disease with debris. Approved by: Napoleon Feliciano M.D. on 12/08/2023 at 15:45
--- NOTE | 2023-12-08 15:03 | PM.HP.1 ---
History of Present Illness History of Present Illness Date Patient Seen: 12/08/23 Chief complaint: thinks is having a stroke or TIA Narrative: The patient is an 78-year-old male with hypertension, dyslipidemia, single kidney, chronic kidney disease, and a recent diagnosis of PFO. The patient had a possible stroke a week ago and was admitted at [facility] for several days. During that workup he was found to have a PFO as well as carotid artery disease with a referral to vascular. The patient is on Eliquis and has been compliant. Today he was unable to speak or follow commands for a period of time. The patient presented to the ED where he was still not able to follow commands. Initial imaging was negative for large vessel occlusion or hemorrhage. Tele neuro recommended holding his anticoagulation for a short time and then resuming in observing his neurologic progress. He was not a candidate for thrombolytics given anticoagulation status. The patient does have a fairly tight right carotid, this may be something needs to be dealt with surgically in the next very short period of time. Additional history: Is obtained from the . The patient is not answering questions but does follow commands and move hands and feet when asked to. He does not answer questions but does make complete sentences that are articulate occasionally. There is no obvious facial droop in his speech is not slurred when he speaks. His last clear well known was 10:15 a.m.. He was sleeping in the car at the [facility]. He awoke some time later and it was unclear if he was normal neurologically. Ultimately several hours later the patient made it clear that he was having difficulty speaking and felt weak all over. He was brought to the ED. he is on chronic anticoagulation for unclear reasons. His left leg is swollen. He has been diagnosed with a PFO last week when admitted for TIA at [facility]. He is compliant with his anticoagulation. Both his time window, as well as his anticoagulation made him not a candidate for thrombolytics. CT brain was negative. CT a head and neck reveal bilateral carotid stenosis right is fairly significant at 90%. He is right handed. His left carotid is about 50% stenosed. MRI was completed with no acute findings. The patient's notes that he has suffered progressive dementia and is quite frustrated by this in his having increased frequency of anxiety episodes. She almost thought that this might be anxiety related today. [facility] Medical History Bladder neck contracture Hematuria Lower urinary tract symptoms (LUTS) Erectile dysfunction BPH loc w/o ur obs/LUTS CVA (cerebral vascular accident) Peripheral vascular disease Atherosclerosis History of stent insertion of renal artery Renal artery stenosis BPH (benign prostatic hyperplasia) Hypertension Hyperlipidemia Surgical History H/O vasectomy H/O hernia repair Hx of appendectomy S/P TURP Family History Father CVA (cerebral vascular accident) Mother COPD (chronic obstructive pulmonary disease) Sister Adopted Social History household members: spouse lives independently: Yes Smoking Status: Former smoker alcohol intake: never Meds Home Medications and Allergies Home Medications Medication Instructions Recorded Confirmed Type clonidine HCl 0.2 mg tablet 0.2 mg PO BID ##0 08/13/11 09/10/21 History (Catapres) clopidogrel 75 mg tablet 75 mg PO QPM 02/19/19 09/10/21 History losartan 50 mg tablet 50 mg PO BID 02/19/19 09/10/21 History aspirin 81 mg tablet,delayed 81 mg PO DAILY #30 tabs 02/20/19 09/10/21 Rx release diltiazem HCl 180 mg 180 mg PO DAILY #30 caps 02/20/19 09/10/21 Rx capsule,extended release 24 hr amlodipine 10 mg tablet 10 mg PO DAILY 05/05/21 09/10/21 History rosuvastatin 10 mg tablet 10 mg PO QPM 05/05/21 09/10/21 History phenazopyridine 200 mg tablet 200 mg PO TID 6 doses #6 tabs 07/01/21 09/10/21 Rx (Pyridium) lidocaine HCl 2 % mucosal jelly in 1 applic topical QD-TID PRN 07/07/21 09/10/21 Rx applicator (Glydo) catheter insertion #75 mL tamsulosin 0.4 mg capsule 0.4 mg PO QPM #90 caps 06/28/23 Rx Allergies Allergy/AdvReac Type Severity Reaction Status Date / Time benazepril [From Lotensin] Allergy Verified 09/10/21 14:17 Review of Systems Review of Systems Narrative: Patient was not able to participate in a review of systems. Exam Vital Signs (past 8 hours): - 12/08/23 12:00 12/08/23 12:30 12/08/23 13:00 Temperature 98.6 F Pulse Rate 71 110 H Respiratory Rate 18 24 23 Blood Pressure 166/74 H 163/77 H 149/67 H Pulse Oximetry 97 99 98 Oxygen Delivery Method Room Air Room Air Room Air Oxygen Delivery Method Room Air Narrative Exam Narrative: Somnolent, not clearly participating. Occasionally has whole articulate sentences. No distress. Normocephalic skull, EOMI, anicteric sclera, symmetric pupils. Oropharynx unremarkable, no droop. Neck supple, midline trachea, no adenopathy. Lungs clear, normal rate and effort. Heart regular, no murmur gallop or rub. Abdomen is soft, non distended and non tender. Extremities: Left leg is swollen Skin is free of rash or lesions. Joints are not swollen or deformed. Judgment and speech can not be assessed with his participation. He does move arms and legs, specifically hands and feet when asked to. There is no obvious facial droop. Objective ECG Impression: NSR Imaging CT scan - head: Radiologist's impression: CT brain: CSF spaces: Basal cisterns are patent. No extra-axial fluid collections. The ventricles are symmetric in size and shape. Brain: No intracranial bleeds or masses. There is cerebral volume loss for age, with resultant ventricular and sulcal prominence. There are periventricular and deep white matter chronic small vessel ischemic changes. There is intracranial internal carotid artery atherosclerosis. Skull and face: Calvarium and visualized facial bones appear intact, without suspicious lesions. Sinuses: Mucosal thickening in both frontal sinuses and right maxillary sinus. mastoids are clear. Neck and head CTA: No significant intracranial arterial abnormality is seen. There is 80-90% narrowing seen at the origin of the right internal carotid artery. 50-60% narrowing can be seen involving the origin left internal carotid artery. No significant vertebral artery abnormality is seen. If there is strong clinical suspicion for an acute stroke, please consider a brain MRI for further evaluation, as it is more sensitive (assuming that there is no contraindication to MRI). CXR: Left interstitial airspace opacities, either atelectasis or developing infection, less likely aspiration. MRI brain: Atrophy and chronic ischemic change without acute infarct, hemorrhage or mass lesion. Right maxillary and right frontal mucosal sinus disease with debris. Labs 12/08/23 12:17 12/08/23 12:17 Labs: Laboratory Results - last 24 hr 12/08/23 12/08/23 12:17 12:55 WBC 9.6 RBC 4.11 L Hgb 13.2 L Hct 38.1 L MCV 92.7 MCH 32.0 MCHC 34.5 RDW 13.7 Plt Count 308 Neut % (Auto) 75.2 H Lymph % (Auto) 11.6 L Bradley % (Auto) 10.6 Eos % (Auto) 1.6 L Baso % (Auto) 1.0 Neut # (Auto) 7200 H Lymph # (Auto) 1100 Bradley # (Auto) 1000 H Eos # (Auto) 200 Baso # (Auto) 100 PT 16.7 H INR 1.5 H APTT 37 H Sodium 126 L Potassium 4.9 Chloride 97 L Carbon Dioxide 16 L BUN 17 Creatinine 1.04 Estimated GFR > 60 BUN/Creatinine Ratio 16.3 Glucose 133 H Calcium 9.5 Magnesium 1.9 Total Bilirubin 1.2 AST 50 ALT 26 Alkaline Phosphatase 41 Total Creatine Kinase 215 H Troponin I 0.013 Total Protein 8.7 H Albumin 4.9 Globulin 3.8 Albumin/Globulin Ratio 1.3 Ethyl Alcohol < 10 SARS-CoV-2 (PCR) Negative Influenza A (RT-PCR) Flu a negative Influenza B (RT-PCR) Flu b negative RSV (PCR) Negative Assessment & Plan Assessment & Plan narrative: 1. Possible TIA, present on admission and active. 2. PFO, present on admission and active. 3. Significant right carotid artery stenosis, present on admission and active. 4. Chronic anticoagulation, present on admission and active. 5. Chronic kidney disease, present on admission and active. 6. Hypertension, present on admission and active. 7. Hyperlipidemia, present on admission and active. 8. Right leg edema, Plan: -hold anticoagulation for 24 hours per neuro. -stat MRI brain (normal) -follow neurologic status closely. -permissive hypertension. -evaluations with Physical, Occupational, and speech therapies. -he is unclear to me if he has a DVT that has been known in the leg or not. He may need duplex ultrasound of the swollen leg tomorrow. He is DNR, confirmed with his . Proxy decision maker is . Time Spent With Patient Time with patient: 30 to 49 minutes with 50% spent counseling/coordinating care Quality MIPS - Admit I confirm the patient?s Advance Care Plan is present, Code status is documented, Surrogate decision maker is in patient?s record [If Yes, STOP here]: Yes MIPS - Meds 'Current medications' to include all prescriptions, [id number] products, herbals, cannabis/cannabidiol products, and vitamin/mineral/dietary (nutritional) supplements. I have utilized all available resources to obtain, update, or review the patient?s current medications. [If Yes, STOP here]: Yes
--- NOTE | 2023-12-08 15:58 | PC.NURSE ---
1545 Pt to MRI and previous sx had resolved. Pt returned to the ED with tooling engineering tech and tech reported that pt's condition began to decline. tech reports that unable to bring pt back in wheelchair and pt needed to be transferred to stretcher. NIH performed with a score 32. Pt aphasic with severe limb ataxia and drift. Pt slurring words. BG 88. Dr Monroe notified.
[2023-12-08] MEDS: DEXTROSE 10 % IN WATER 250 ML 12 ML IV (17:00)
--- NOTE | 2023-12-08 17:32 | PT.IIE ---
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 (12/08/23) Cerebral infarction, unspecified (12/08/23) Surgical History (Last Reviewed 12/08/23 @ 15:04 by Ken Strong MD) H/O hernia repair H/O vasectomy Hx of appendectomy S/P TURP Medical History (Last Reviewed 12/08/23 @ 15:04 by Ken Strong MD) Atherosclerosis Bladder neck contracture BPH (benign prostatic hyperplasia) BPH loc w/o ur obs/LUTS CVA (cerebral vascular accident) Erectile dysfunction Hematuria History of stent insertion of renal artery Hyperlipidemia Hypertension Lower urinary tract symptoms (LUTS) Peripheral vascular disease Renal artery stenosis Physical Therapy Inpatient Evaluation/Re-Eval M1 PT/OT-IP Prior Functional Status Start: 12/08/23 16:28 Freq: NEEDED Status: Active Protocol: Document 12/08/23 16:28 MB (Rec: 12/08/23 17:32 MB [id number]) Medical Review Prior Functional Status Medical History Reviewed Yes Communication Unsure baseline diet and provides some answers to PT's questions but she did not know all answers to questions, it does not appear that he had a special diet at baseline Mobility and Gait reports that pt has a cane and used or did not use it at baseline, was mobile, she did the driving and he did his ADLs Activities of Daily Living and IADL's See above Social History Household Members spouse Living Arrangements House Number of Floors (Floors) Two Floors Number of Stairs To Enter/Railing? 2 steps and no rail to enter and 13 steps with half rail to bed room Home Environment Standard Height Toilet,Tub/ Shower Home Equipment Straight Cane,Hand Held Shower Employment Status Retired M2 PT-IP Current Condition Start: 12/08/23 16:28 Freq: NEEDED Status: Active Protocol: Document 12/08/23 16:28 MB (Rec: 12/08/23 17:32 MB [id number]) Physical Therapy Current Condition Current Condition Evaluation Date 12/08/23 Treatment Diagnosis Possible TIA/stroke with recent TIA at [facility] M3 PT-IP Subjective Start: 12/08/23 16:28 Freq: NEEDED Status: Active Protocol: Document 12/08/23 16:28 MB (Rec: 12/08/23 17:32 MB [id number]) Subjective Physical Therapy Visit Type Type Initial Evaluation Visit Start Time 16:28 Visit Stop Time 17:00 Number of EAR NOSE AND THROAT SPECIALIST Visits 0 Physical Therapy Visit Comments Patient Comments Pt is hypoverbal and answers few questions. attempts to answer questions but does not answer all questions or does not know answers. M4 PT-IP Mobility and Gait Start: 12/08/23 16:28 Freq: NEEDED Status: Active Protocol: Document 12/08/23 16:28 MB (Rec: 12/08/23 17:32 MB [id number]) PT-Transfer Assessment Comments Mobility Comments PT attempts to initiate bed mobility and sitting to check orthostatics and pt is dependent to move legs to the left on the plinth and then he states, No. No! and so PT stops mobility. BP and HR in left UE in hook lying is 172/ 81,97 and computer reads, a- fib often. LLE is more swollen than the right and LUE shoulder may have a mild sulcus, L extremities may be slightly weaker than the right but pt makes poor effort with range and strength testing efforts by PT. M5 PT-IP Objective Assessments Start: 12/08/23 16:28 Freq: NEEDED Status: Active Protocol: Document 12/08/23 16:28 MB (Rec: 12/08/23 17:32 MB [id number]) Orientation Orientation/Cognition Level of Alertness Confusional State Comments Confusional state and lethargic and pt occ makes gurgling/wet sounds from throat area. O2 sats remain normal on RA throughout treatment, pt opens eyes occ and no nystagmus noted. Pt does not answer any orientation questions when asked. Gross Range of Motion Upper Extremity ROM Assessment Bilaterally Impaired Lower Extremity ROM Assessment Bilaterally Impaired Strength Upper Extremity Strength Assessment Bilaterally Impaired Lower Extremity Strength Assessment Bilaterally Impaired Comments Strength Comments Pt does not follow ROM or MMT commands well and B APs grossly similar and minimal. He performs minimal HS on the right and PT must initiate this movement with LLE. PT picks up right arm to see if pt will hold it across his face and he grimaces and he is able to hold arm up on his face and is also able to do this with left arm. Minimal squeezing of PT's fingers both hands. Other Assessments Other Other Assessments LLE edema M7 PT-IP Assessment and Plan Start: 12/08/23 16:28 Freq: NEEDED Status: Active Protocol: Document 12/08/23 16:28 MB (Rec: 12/08/23 17:32 MB [id number]) PT Summary Assessment and Plan Potential Rehabilitation Potential Fair Status of Condition at Evaluation Unstable Summary Impairments Pain,ROM,Strength,Balance, Coordination,Sensation, Cognition,Bed Mobility, Transfers,Gait,Activity Tolerance Progress Towards Goals Slow Progress due to Medical Issues,Slow Progress due to Activity Tolerance,Slow Progress - Other Assessment Summary Pt is an 78 y/o male presenting to ED d/t concern for TIA/stroke. She states that pt stayed at [facility] for two nights one week ago for stroke work- up and that he was dx with TIA . states that at baseline , pt walks and takes care of his ADLs. She states the only change lately was that his kidney doctor put patient on furosemide for LE edema and that day, he got weak when they went to a restaurant. He felt weak in his arms. It is unclear if he was light-headed or not. did call EMS at that time and they were taken to [facility]. When PT asks about LLE edema and if pt is on a blood thinner, states that pt has been on Eliquis 2x /day for years and she does not know why. PT exam is very limited as pt has low participation and presents with lethargy and confusion. See objective findings, which are minimal today. He will benefit from ongoing PT to improve mobility, function and I. May benefit from having orthostatics checked once he is mobile and participates better with therapy. Goals Bed Mobility Goal Independent Transfer Goal Independent,Cane,Front Wheeled Walker Gait Goal Independent,Cane,Front Wheel Walker Gait Distance 75 Other Goals If d/cing home, pt will need to ascend 2 steps without rail with LRAD and then 13 steps with rail to allow home entrance. Days to Meet Goals 5 Frequency of Treatment Frequency Of Treatment Once a Day Treatment Plan Physical Therapy Treatment Plan Bed Mobility Training,Transfer Training,Gait Training, Therapeutic Exercise,Balance Retraining,Discharge Planning, Hot or Cold Pack,Neuromuscular Re-ed,Coordination Retraining ,Manual Therapy Weight Bearing Status Weight Bearing Status Weight Bear as Tolerated Recommendations To Nursing Amount of Assist Needed Mechanical Lift Discharge Recommendations PT Discharge Recommendations Home vs SNF Transportation Needs at Discharge Wheelchair/Cabulance
[2023-12-08] MEDS: SODIUM CHLORIDE 0.9% 1,000 ML 50 ML IV (17:52)
--- NOTE | 2023-12-08 18:33 | PC.NURSE ---
Patient arrived to room 221 at 1715. He is A&OX3-4 and passes swallow eval. He is unable to hold BLE's up in the air and is limited to LUE due to R shoulder pain is unable to hold R UE up in the air. His speech is clear, as well as gaze is normal, EOMI, he denies vision changes. He is able to keep his eyes open and is communicating effeciently. at bedside supportive. NS at 50 ml/hr, condom cath in place, SCD's in place, bed alarm on, tele placed, call light in reach and frequent rounding.
[2023-12-08 19:12] LABS: Appearance Urine UA CLEAR; Bilirubin Urine UA NEGATIVE (NEGATIVE); Color Urine UA YELLOW; Glucose Urine UA NEGATIVE (Negative); Ketones Urine UA NEGATIVE (NEGATIVE); Leukocyte Esterase Urine UA NEGATIVE (NEGATIVE); Nitrite Urine UA NEGATIVE (Negative); Occult Blood Urine UA TRACE-INTACT (Negative); Protein Urine UA TRACE (Negative); Urobilinogen Urine UA 0.2 E.U./dL (0.2)
[2023-12-08 19:28] LABS: UR Morphine/Opiate cutoff 300 Negative (Negative); Ur Creatinine Normal (Normal); Ur Specific Gravity Normal (Normal); Urine Amphetamines Negative (Negative); Urine Barbiturates Negative (Negative); Urine Benzodiazepines Negative (Negative); Urine Cocaine Negative (Negative); Urine MDMA Negative (Negative); Urine Methadone Negative (Negative); Urine Methamphetamines Negative (Negative); Urine Oxycodone Negative (Negative); Urine Phencyclidine Negative (Negative); Urine Tetrahydrocannabinol Negative (Negative); Urine Tricyclic Antidepressant Negative (Negative); Urine pH Normal (Normal)
[2023-12-08 19:34] LABS: Bacteria Urine None Seen; Culture Indicated Urine Cult Not Indicated; RBC Urine 0-1/HPF (0-5/HPF); Squamous Epithelial Cell Urine 0-1 /HPF (0-5/HPF); Transitional Epi Cells Urine 0-1/HPF (0-5/HPF); Urine Volume 10mL (spun); WBC Urine 0-1/HPF (0-5/HPF)
--- NOTE | 2023-12-08 21:24 | PC.NURSE ---
Addendum entered by Ghislaine Levin R.N. 12/09/23 03:27: Patient awoke from sleeping, appears much more alert & oriented. Accurately stated name, birthday, place, still unsure of situation. Requires reorientation of situation frequently. NIH: 2, has some mumbled speech and mild expressive aphasia. Resting in bed, denies pain. Original Note: sulfide head operator: 1929: Patient alert and oriented to self, aware he is in the hospital, and accurately stated month/year. Unsure of why he is in the hospital. Asked for a snack before bed. Denies pain. VSS. 2100 update: Patient is alert to voice and able to answer questions but appears very sleepy. Unable to complete NIH d/t inability to keep eyes open or follow commands. Moving both arms freely and spontaneously, no facial droop noted, pupils are equal & reactive. VSS, O2 saturation 98% on RA. Glucose: 108. Notified MD Allen, continuing to monitor for now. Cont tele monitor in place. Plan of care ongoing.
[2023-12-08] MEDS: HEPARIN 5,000 UNIT/ML VIAL 5000 UNIT SUBCUT (21:31)
[2023-12-08 22:40] LABS: Sodium Urine Random 56 mmol/L (30-90)
[2023-12-09 00:32] VITALS: BP 151/73; PULSE 76; RESP 18; TEMP 36.5; O2SAT 97
[2023-12-09 04:53] VITALS: BP 135/76; PULSE 66; RESP 18; TEMP 36.8; O2SAT 95
[2023-12-09 05:26] LABS: Add Manual Diff / Slide Review NO; Basophils Absolute Auto 100 /uL (0-100); Basophils Percent Auto 0.8 % (0-2); Eosinophils Absolute Auto 300 /uL (0-450); Eosinophils Percent Auto 2.9 % (2-4); Lymphocytes Absolute Auto 1100 /uL (1100-4500); Lymphocytes Percent Auto 12.3 % (25-40); Mean Corpuscular Hemoglobin 32.3 PG (26-34); Mean Corpuscular Volume 92.3 fL (80-100); Monocytes Absolute Auto 800 /uL (0-900); Monocytes Percent Auto 8.5 % (3-14); Neutrophils Absolute Auto 6700 /uL (1500-7000); Neutrophils Percent Auto 75.5 % (50-75); Platelet Count 303 X10^3/uL (150-400); Red Blood Cell Count 4.01 X10^6/uL (4.5-5.9); Red Cell Distribution Width 13.9 % (11.6-14.8); White Blood Cell Count 8.9 X10^3/uL (4.5-11.0)
[2023-12-09 05:36] LABS: BUN Creatinine Ratio 13.5 (6-22); Blood Urea Nitrogen 12 mg/dL (9-20); Calcium 9.1 mg/dL (8.4-10.2); Carbon Dioxide 24 mmol/L (22-32); Chloride 101 mmol/L (98-107); Estimated Glomerular Filt Rate > 60 mL/min (>60); Glucose 92 mg/dL (80-110); HEMOLYSIS < 15 (0-50); Potassium 4.1 mmol/L (3.4-5.1); Sodium 130 mmol/L (137-145)
[2023-12-09 08:00] VITALS: BP 149/74; PULSE 70; RESP 19; TEMP 36.9; O2SAT 96
--- NOTE | 2023-12-09 08:53 | ST.IPCSEOM ---
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 (12/08/23) Cerebral infarction, unspecified (12/08/23) Past Medical History (Last Reviewed 12/08/23 @ 15:04 by Ken Strong MD) Atherosclerosis (Medical) Bladder neck contracture (Medical) BPH (benign prostatic hyperplasia) (Medical) Had a HoLEP procedure done BPH loc w/o ur obs/LUTS (Medical) CVA (cerebral vascular accident) (Medical) Erectile dysfunction (Medical) Hematuria (Medical) History of stent insertion of renal artery (Medical) Hyperlipidemia (Medical) Hypertension (Medical) Lower urinary tract symptoms (LUTS) (Medical) Peripheral vascular disease (Medical) Renal artery stenosis (Medical) Speech-Language Pathology 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 Ken Strong Reason for Referral CVA Setting Assessment Location Acute Care Visit Type Note Type Initial evaluation Next Note Type Next Note Type Treatment Note Patient Information Identification Type Name,Wristband History Per H&P: The patient is an 78- year-old male with hypertension, dyslipidemia, single kidney, chronic kidney disease, and a recent diagnosis of PFO. The patient had a possible stroke a week ago and was admitted at [facility] for several days. During that workup he was found to have a PFO as well as carotid artery disease with a referral to vascular. The patient is on Eliquis and has been compliant. Today he was unable to speak or follow commands for a period of time . The patient presented to the ED where he was still not able to follow commands. Initial imaging was negative for large vessel occlusion or hemorrhage. Tele neuro recommended holding his anticoagulation for a short time and then resuming in observing his neurologic progress. He was not a candidate for thrombolytics given anticoagulation status. The patient does have a fairly tight right carotid, this may be something needs to be dealt with surgically in the next very short period of time. Additional history: Is obtained from the . The patient is not answering questions but does follow commands and move hands and feet when asked to. He does not answer questions but does make complete sentences that are articulate occasionally. There is no obvious facial droop in his speech is not slurred when he speaks. His last clear well known was 10: 15 a.m.. He was sleeping in the car at the [facility]. He awoke some time later and it was unclear if he was normal neurologically. Ultimately several hours later the patient made it clear that he was having difficulty speaking and felt weak all over. He was brought to the ED. he is on chronic anticoagulation for unclear reasons. His left leg is swollen. He has been diagnosed with a PFO last week when admitted for TIA at [facility]. He is compliant with his anticoagulation. Both his time window, as well as his anticoagulation made him not a candidate for thrombolytics. CT brain was negative. CT a head and neck reveal bilateral carotid stenosis right is fairly significant at 90%. He is right handed. His left carotid is about 50% stenosed. MRI was completed with no acute findings. The patient's notes that he has suffered progressive dementia and is quite frustrated by this in his having increased frequency of anxiety episodes. She almost thought that this might be anxiety related today. PMHx significant for: Bladder neck contracture Hematuria Lower urinary tract symptoms ( LUTS) Erectile dysfunction BPH loc w/o ur obs/LUTS CVA (cerebral vascular accident) Peripheral vascular disease Atherosclerosis History of stent insertion of renal artery Renal artery stenosis BPH (benign prostatic hyperplasia) Hypertension Hyperlipidemia Pt referred for ST evaluation d/t CVA in order to assess swallow function. Subjective Observations Pt sitting upright in bed with breakfast tray. ST positioned Pt upright utilizing bed controls. Pt oriented to self, date and place. Pt reports he is hungry. Reported by Patient/Caregiver Pain/Discomfort No Current Diet Regular (IDDSI 7) Baseline Feeding Method Independent in self-feeding The IDDSI Framework Protocol: IDDSI.1 Objective Assessment Mental Status Alert,Responsive,Cooperative Comment Pt with natural dentition, good condition. Slightly reduced lingual and labial strength and ROM. Food and Liquid Trials Position During Assessment Upright (90 degrees) Liquids Trialed Thin (IDDSI 0) Solid Trials Soft & Bite-sized (IDDSI 6), Regular (IDDSI 7) Administration Type Straw,Self-feeding Oral Impairment Mildly impaired Oral Phase Comments Pt consumed 1 sausage link, hashbrowns, 8 oz of water via straw, icecream. Pt able to cut sausage independently into small pieces and feed self. For sausage, Pt demonstrated adequate bite size and rate, prolonged mastication, however adequate bolus formation and control, extended ap transport , piecemeal deglutition, mild oral residue. For hashbrowns Pt demonstrated prolonged mastication however increased rate compared to sausage, adequate bolus formation and control, extended ap transport . For icecream Pt demonstrated good oral acceptance and containment. For water via straw Pt demonstrated adequate suction, consecutive sips, suspected loss of bolus resulting in premature spillage. Pharyngeal Impairment Mildly impaired Pharyngeal Phase Comments ST suspected delayed swallow reflex with all trials. For solids, Pt demonstrated no overt s/s of aspiration. No overt s/s of aspiration with icecream. For water via straw, Pt demonstrated 2x throat clear, however clear vocal quality, no coughing/choking observed. Pt stated twice I think I should slow down. Pt consumed most of his hashbrowns, 1 sausage link and icecream. Fatigue/Endurance Endurance WNL The IDDSI Framework Protocol: IDDSI.1 Findings Swallowing Function Oropharyngeal phase dysphagia Severity of Swallow Impairment Mildly impaired Prognosis Good Recommendations Instrumental Assessment No Swallowing Treatment Yes Frequency Daily while inpatient Recommended Solids Regular (IDDSI 7) Recommended Liquids Thin (IDDSI 0) Other Recommendations ST recommends IDDSI 7/IDDSI 0 with the below mentioned safe swallowing strategies in place . ST communicated with nursing Pt results. ST recommends MBS if Pt demonstrates increase in s/s of aspiration over the weekend, such as coughing/ choking and/or changes in respiratory status. Safety Precautions/Swallowing Feed only when alert,Remain Recommendations upright (90 degrees) during all oral intake,Upright position at least 30 minutes after meals,Small bites and sips when eating,Slow rate; swallow between bites, Alternate liquids and solids, Strict oral care after intake Medication Recommendations As Tolerated Education Patient/Caregiver Education Described results of evaluation,Patient requires further education/training, Family/caregivers require further education/training Goals Short-term Goals STG 1: Patient will tolerate IDDSI 7 with no clinical s/s of dysphagia 100% of the time in order to consume least restrictive diet. STG 2: Patient will tolerate thin liquids with no clinical s/s of aspiration 100% of the time in order to consume least restrictive diet. Long-term Goals LTG: Patient will tolerate safest and most efficient diet with no clinical s/s of aspiration or dysphagia 100% of the time in order to consume least restrictive diet .
[2023-12-09 09:09] LABS: Cholesterol 119 mg/dL (140-199); HDL Cholesterol 62 mg/dL (40-60); LDL Cholesterol Calculated 42 mg/dL (<100); Triglycerides 73 mg/dL (35-150)
[2023-12-09] MEDS: ASPIRIN EC 81 MG TABLET PO (09:27)
[2023-12-09] MEDS: APIXABAN 5 MG TABLET PO ×2 (09:27→22:14)
[2023-12-09] MEDS: ACETAMINOPHEN 325 MG TABLET 650 MG PO (09:28)
--- NOTE | 2023-12-09 11:22 | P.PN_ITS ---
Subjective Subjective Date Patient Seen: 12/09/23 Time Patient Seen: 11:15 Interval history: Narrative: The patient is an 78-year-old male with hypertension, dyslipidemia, single kidney, chronic kidney disease, and a recent diagnosis of PFO. The patient had a possible stroke a week ago and was admitted at [facility] for several days. During that workup he was found to have a PFO as well as carotid artery disease with a referral to vascular. The patient is on Eliquis and has been compliant. Today he was unable to speak or follow commands for a period of time. The patient presented to the ED where he was still not able to follow commands. Initial imaging was negative for large vessel occlusion or hemorrhage. Tele neuro recommended holding his anticoagulation for a short time and then resuming in observing his neurologic progress. He was not a candidate for thrombolytics given anticoagulation status. The patient does have a fairly tight right carotid, this may be something needs to be dealt with surgically in the next very short period of time. Brain MRI 12/08/2023: Atrophy and chronic ischemic change without acute infarct, hemorrhage or mass lesion. Right maxillary and right frontal mucosal sinus disease with debris. Today: Patient states he is very weak. He says ?I'm ready to ?. His notes that he has a longstanding history of severe depression. He tried sertraline but it did not seem to be working, perhaps making him worse, so it was stopped. His last dose was 3 days ago. He denies any focal deficit. He states he can not move, lifting both his arms briefly and lowering them. He is able to wiggle both feet but does not want to participate in his exam otherwise. He refused physical therapy yesterday. Exam Vital Signs (past 8 hours): - 12/09/23 04:53 12/09/23 08:00 Temperature 98.3 F 98.4 F Pulse Rate 66 70 Respiratory Rate 18 19 Blood Pressure 135/76 149/74 H Pulse Oximetry 95 96 Oxygen Flow Rate 0 0 Oxygen Delivery Method Room Air Oxygen Flow Rate 0 Narrative Exam Narrative: GENERAL: This is a well-nourished, well-developed patient, in no apparent distress, lying still in bed, moving his arms and legs as noted above, but otherwise stating he is not able to move at all, with a flat affect and monotone voice. HEAD: Atraumatic. Normocephalic. No temporal or scalp tenderness. EYES: Pupils equal round and reactive. Extraocular motions intact. No scleral icterus. No injection or drainage. ENT: Mucous membranes pink and moist. NECK: Trachea midline. No JVD, bruits or lymphadenopathy. Supple, nontender, no meningeal signs. CARDIOVASCULAR: Regular rate and rhythm without murmurs, gallops, or rubs. RESPIRATORY: Clear to auscultation. GASTROINTESTINAL: Abdomen soft, non-tender, nondistended. EXTREMITIES: No clubbing, cyanosis, or edema. BACK: Nontender without deformity or crepitance. No flank tenderness. NEUROLOGIC: Alert, oriented, speech fluent, lying with his eyes closed the opening and looking around periodically, not participating with exam though moving both arms and both legs, patellar and biceps reflexes 2+, no focal deficits evident. DERMATOLOGIC: No rashes or skin lesions. Objective Labs 12/09/23 04:56 12/09/23 04:56 Labs: Laboratory Results - last 24 hr 12/08/23 12/08/23 12/08/23 12:17 12:55 18:09 WBC 9.6 RBC 4.11 L Hgb 13.2 L Hct 38.1 L MCV 92.7 MCH 32.0 MCHC 34.5 RDW 13.7 Plt Count 308 Neut % (Auto) 75.2 H Lymph % (Auto) 11.6 L [place] % (Auto) 10.6 Eos % (Auto) 1.6 L Baso % (Auto) 1.0 Neut # (Auto) 7200 H Lymph # (Auto) 1100 [place] # (Auto) 1000 H Eos # (Auto) 200 Baso # (Auto) 100 PT 16.7 H INR 1.5 H APTT 37 H Sodium 126 L Potassium 4.9 Chloride 97 L Carbon Dioxide 16 L BUN 17 Creatinine 1.04 Estimated GFR > 60 BUN/Creatinine Ratio 16.3 Glucose 133 H Hemoglobin A1c Calcium 9.5 Magnesium 1.9 Total Bilirubin 1.2 AST 50 ALT 26 Alkaline Phosphatase 41 Total Creatine Kinase 215 H Troponin I 0.013 Total Protein 8.7 H Albumin 4.9 Globulin 3.8 Albumin/Globulin Ratio 1.3 Triglycerides Cholesterol LDL Cholesterol, Calc HDL Cholesterol Urine Color Urine Appearance Urine pH Ur Specific [place] Urine Protein Urine Glucose (UA) Urine Ketones Urine Occult Blood Urine Nitrate Urine Bilirubin Urine Urobilinogen Ur Leukocyte Esterase Urine RBC Urine WBC Ur Squamous Epith Cells Ur Transition Epith Cell Urine Bacteria Ur Culture Indicated? Vol Urine Centrifuged Ur Random Sodium 56 U Opiates 300ng/mL cut Ur Oxycodone Screen Urine Methadone Screen Ur Barbiturates Screen U Tricyclic Antidepress Ur Phencyclidine Scrn Ur Amphetamines Screen U Methamphetamines Scrn Ur MDMA Scrn (Ecstasy) U Benzodiazepines Scrn Urine Cocaine Screen U Marijuana (THC) Screen Urine Specific [place] Ethyl Alcohol < 10 Ur Creatinine SARS-CoV-2 (PCR) Negative Influenza A (RT-PCR) Flu a negative Influenza B (RT-PCR) Flu b negative RSV (PCR) Negative 12/08/23 12/08/23 12/09/23 19:00 19:00 04:56 WBC 8.9 RBC 4.01 L Hgb 13.0 L Hct 37.0 L MCV 92.3 MCH 32.3 MCHC 35.0 RDW 13.9 Plt Count 303 Neut % (Auto) 75.5 H Lymph % (Auto) 12.3 L [place] % (Auto) 8.5 Eos % (Auto) 2.9 Baso % (Auto) 0.8 Neut # (Auto) 6700 Lymph # (Auto) 1100 [place] # (Auto) 800 Eos # (Auto) 300 Baso # (Auto) 100 PT INR APTT Sodium 130 L Potassium 4.1 Chloride 101 Carbon Dioxide 24 BUN 12 Creatinine 0.89 Estimated GFR > 60 BUN/Creatinine Ratio 13.5 Glucose 92 Hemoglobin A1c 6.0 Calcium 9.1 Magnesium Total Bilirubin AST ALT Alkaline Phosphatase Total Creatine Kinase Troponin I Total Protein Albumin Globulin Albumin/Globulin Ratio Triglycerides 73 Cholesterol 119 L LDL Cholesterol, Calc 42 HDL Cholesterol 62 H Urine Color Yellow Urine Appearance Clear Urine pH 7.0 Normal Ur Specific [place] 1.010 Urine Protein Trace H Urine Glucose (UA) Negative Urine Ketones Negative Urine Occult Blood Trace-intact Urine Nitrate Negative Urine Bilirubin Negative Urine Urobilinogen 0.2 Ur Leukocyte Esterase Negative Urine RBC 0-1/hpf Urine WBC 0-1/hpf Ur Squamous Epith Cells 0-1 /hpf Ur Transition Epith Cell 0-1/hpf Urine Bacteria None seen Ur Culture Indicated? Cult not indicated Vol Urine Centrifuged 10ml (spun) Ur Random Sodium U Opiates 300ng/mL cut Negative Ur Oxycodone Screen Negative Urine Methadone Screen Negative Ur Barbiturates Screen Negative U Tricyclic Antidepress Negative Ur Phencyclidine Scrn Negative Ur Amphetamines Screen Negative U Methamphetamines Scrn Negative Ur MDMA Scrn (Ecstasy) Negative U Benzodiazepines Scrn Negative Urine Cocaine Screen Negative U Marijuana (THC) Screen Negative Urine Specific [place] Normal Ethyl Alcohol Ur Creatinine Normal SARS-CoV-2 (PCR) Influenza A (RT-PCR) Influenza B (RT-PCR) RSV (PCR) PFSH Medical History Bladder neck contracture Hematuria Lower urinary tract symptoms (LUTS) Erectile dysfunction BPH loc w/o ur obs/LUTS CVA (cerebral vascular accident) Peripheral vascular disease Atherosclerosis History of stent insertion of renal artery Renal artery stenosis BPH (benign prostatic hyperplasia) Hypertension Hyperlipidemia Surgical History H/O vasectomy H/O hernia repair Hx of appendectomy S/P TURP Family History Father CVA (cerebral vascular accident) Mother COPD (chronic obstructive pulmonary disease) Sister Adopted Social History household members: spouse lives independently: Yes Smoking Status: Former smoker alcohol intake: former Assessment & Plan Assessment & Plan narrative: 1. Severe depression, untreated. Start bupropion. Counseling and encouragement provided. This appears to be the root cause of his hospitalization and weakness. 2. Possible TIA, questionable in light of above and negative imaging studies or focal deficits evident. 3. PFO, present on admission and active. 4. Significant right carotid artery stenosis, present on admission and active. 5. Chronic anticoagulation, present on admission and active. 6. Chronic kidney disease, present on admission and active. 7. Hypertension, present on admission and active. 8. Hyperlipidemia, present on admission and active. 9. Right leg edema, Plan: -start bupropion 150 mg b.i.d. -encourage physical therapy - restart anticoagulation now at 24 hours per neuro. -follow neurologic status closely. -permissive hypertension. -evaluations with Physical, Occupational, and speech therapies. -anticipate discharge home tomorrow with with close outpatient follow-up with primary care provider Dr. Brigette Ceron -DNR, confirmed with his . Proxy decision maker is . Time Spent With Patient Time with patient: less than 30 minutes IH PROFEE Charge codes Subsequent inpatient/observation care: [id number]
[2023-12-09 11:45] VITALS: BP 154/74; PULSE 75; RESP 16; TEMP 36.6; O2SAT 96
--- NOTE | 2023-12-09 11:55 | PT-IP ANOTE ---
Pt is lethargic and hypoverbal this morning. He refused to work with PT at this time. PT will attempt to see in afternoon if time is available.
--- NOTE | 2023-12-09 11:57 | OT.IPNOTE ---
Attempted to see pt for OT eval and pt adamantly refused and not wanting to try to get up at this time. Able to let hospitalist know that pt states, I will not be here tomorrow. and Adamantly states he does not want to move or get up at this time.
[2023-12-09] MEDS: buPROPion 75 MG TABLET 150 MG PO ×2 (12:07→22:14)
--- NOTE | 2023-12-09 13:35 | OT.IP.EVAL ---
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 (12/08/23) Cerebral infarction, unspecified (12/08/23) Past Medical History (Last Reviewed 12/08/23 @ 15:04 by Ken Strong MD) Atherosclerosis Bladder neck contracture BPH (benign prostatic hyperplasia) BPH loc w/o ur obs/LUTS CVA (cerebral vascular accident) Erectile dysfunction Hematuria History of stent insertion of renal artery Hyperlipidemia Hypertension Lower urinary tract symptoms (LUTS) Peripheral vascular disease Renal artery stenosis Surgical History (Last Reviewed 12/08/23 @ 15:04 by Ken Strong MD) H/O hernia repair H/O vasectomy Hx of appendectomy S/P TURP Occupational Therapy Inpatient Evaluation/Re-Eval and Held Shower Employment Status Retired M1 PT/OT-IP Prior Functional Status Start: 12/09/23 14:24 Freq: NEEDED Status: Active Protocol: Document 12/09/23 13:35 [facility] (Rec: 12/09/23 14:56 [facility] [id number]) Medical Review Prior Functional Status Medical History Reviewed Yes Communication Unsure baseline diet and provides some answers to PT's questions but she did not know all answers to questions, it does not appear that he had a special diet at baseline Mobility and Gait reports that pt has a cane and used or did not use it at baseline, was mobile, she did the driving and he did his ADLs Activities of Daily Living and IADL's See above Social History Household Members spouse Living Arrangements House Number of Stairs To Enter/Railing? 2 steps no rails to get in and 13 steps with rail to get upstair to the bedroom. Home Environment Standard Height Toilet,Tub/ Shower Home Equipment Straight Cane,Hand Held Shower M2 OT-IP Current Condition Start: 12/09/23 14:24 Freq: Status: Active Protocol: Document 12/09/23 13:35 [facility] (Rec: 12/09/23 14:56 [facility] [id number]) Occupational Therapy Current Condition Current Condition Evaluation Date 12/09/23 Treatment Diagnosis Severe depression, possible CVA Diagnosis Onset Date 12/08/23 M3 OT- IP Subjective and Pain Start: 12/09/23 14:24 Freq: Status: Active Protocol: Document 12/09/23 13:35 [facility] (Rec: 12/09/23 14:56 [facility] [id number]) OT- Subjective Occupational Therapy Visit Type Type Initial Evaluation Visit Start Time 13:35 Visit Stop Time 14:18 Occupational Therapy Visit Comments Patient Comments Attempted to see pt again after lunch and medications and agreed to get up to use the bathroom. Patient/Caregiver Goals To go home. OT Pain Assessment Pain When Pain Assessed At Rest Pain Present Pain Present Denied Pain M4 OT- IP ADL's Start: 12/09/23 14:24 Freq: Status: Active Protocol: Document 12/09/23 13:35 [facility] (Rec: 12/09/23 14:56 [facility] [id number]) OT SNM-[id number]-Vccewws General Evaluation Self-Feeding Ability Independent OT ADL-Grooming Comments OT Grooming Comments Pt able to wash his hand at the sink. OT ADL-Oral Care Comments Oral Care Comments Not performed. OT ADL-Dressing General Eval Lower Body Dressing Ability Minimal Assistance Areas Needing Assistance Underpants/Brief Comments OT Dressing Comments Pt able to get his socks on with increased time and assist to help thread the catheter over his feet. OT ADL-Toileting General Evaluation Toileting Ability Standby Assistance Comments OT Toileting Comments VC for completeness to wipe. OT ADL-Bathing Comments OT Bathing Comments Suggested pt's to assist and get a shower chair for safety. M5 OT- IP IADL's Start: 12/09/23 14:24 Freq: Status: Active Protocol: Document 12/09/23 13:35 [facility] (Rec: 12/09/23 14:56 [facility] [id number]) OT-Instrumental Activities of Daily Living Deficits IADL Deficits Identified Deficits Home Safety Awareness Awareness of Need for Assistance at Home Good Awareness Ability to Problem Solve Emergency Able to Problem Solve Situations Medication Management Medication Management Caregiver Administers Money Management Money Management Caregiver Provides Assistance Meal Preparation Meal Preparation Caregiver Provides Assist Grill Attendant Grill Attendant Caregiver Provides Assist M6 OT- IP Functional Cognition Start: 12/09/23 14:24 Freq: Status: Active Protocol: Document 12/09/23 13:35 [facility] (Rec: 12/09/23 14:56 [facility] [id number]) Cognitive Factors Limiting Selfcare Function Cognitive Ability Level of Alertness Alert Patient Orientation Name,Place,Situation Attention Span Ability Capable of Focused Attention, Capable of Sustained Attention Ability to Follow Commands Able to Follow One Step Commands Cognitive Comments Cognitive Assessment Comments Pt able to follow commands for ADl and mobility and needing occasional assist for completeness. OT- Vision and Hearing OT- Hearing Assessment OT- Hearing Assessment Hearing Impaired,Use of Hearing Aids OT- Vision Assessment Visual Acuity Glasses All The Time Visual Attentiveness WFL Occular Pursuits WFL M7 OT- IP Mobility and Balance Start: 12/09/23 14:24 Freq: Status: Active Protocol: Document 12/09/23 13:35 [facility] (Rec: 12/09/23 14:56 [facility] [id number]) OT- Bed Mobility Assessment Rolling Level of Assistance Standby Assistance Supine to Sit Supine to Sit Assist Standby Assistance OT-Transfer Assessment Sit to and From Stand Sit to and from Stand Standby Assistance,Contact Guard Assistance Transfers Transfer Ability Standby Assistance,Contact Guard Assistance Technique Transfer Destination Bed,Chair,Toilet Transfer Technique Stand Step Pivot Devices Transfer Assistive Devices None,Gait Belt,Straight Cane, Front Wheeled Walker Comments Mobility Comments BP standing 186/74 and after use of the bathroom 172/87. SBA to get out of bed and CGA to stand . CGA/close SBA without a device and SBA with SPC. OT- Balance Assessment Sitting Balance and Reactions Static Sitting Balance Ability Normal Dynamic Sitting Balance Ability Good Standing Balance and Reactions Static Standing Balance Ability Good Dynamic Standing Balance Ability Fair M8 OT- IP Objective Assessments Start: 12/09/23 14:24 Freq: Status: Active Protocol: Document 12/09/23 13:35 [facility] (Rec: 12/09/23 14:56 [facility] [id number]) OT Gross Range of Motion Upper Extremity Range of Motion ROM Impairments Decreased at end range of motion for his shoulders. OT Strength Comments Strength Comments Pt's 4-/5 to 4+/5 from proximal to distal. OT- Coordination Assessment Upper Extremity Finger to Nose Test Within Functional Limits M9 OT- IP Assessment and Plan Start: 12/09/23 14:24 Freq: Status: Active Protocol: Document 12/09/23 13:35 [facility] (Rec: 12/09/23 14:56 [facility] [id number]) OT Summary Assessment and Plan Potential Rehabilitation Potential Good Analytic Complexity at Evaluation Moderate Summary OT Impairments Range of Motion,Strength, Balance,Functional Cognition, Functional Mobility,Dressing, Toileting,Bathing,Toilet Transfers,Shower Transfers, Activity Tolerance Progress Towards Goals Progressing Toward Goals Assessment Summary Pt MOD complexity and main barriers steps, decreased activity tolerance, dynamic balance and will benefit from his to provide assist as needed initially while at home . Pt needing some cues for completeness for hygiene and will need assist for bathing and IADL needs. Pt to go home with his to assist when medically available. Goals Self-Feeding Goal Independent Grooming Goal Independent Dressing Goal Independent Toileting Goal Independent Bathing Goal Independent Toilet Transfer Goal Independent Shower Transfer Goal Independent Days to Meet Goals 3 Frequency of Treatment Frequency Of Treatment Once a Day Treatment Plan OT Treatment Plan ADL Training,Functional Cognition Training,Functional Mobility,Patient/Family Education,Discharge Planning Other Treatment Recommendations and Next shower Treatment Focus Discharge Recommendations OT Discharge Recommendations Home with 28/02 Assist Available Home Equipment Needs shower chair Transportation Needs at Discharge Private Vehicle
[2023-12-09] MEDS: SODIUM CHLORIDE 0.9% 1,000 ML 50 ML IV (13:39)
--- NOTE | 2023-12-09 13:50 | PT.IPTN ---
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 (12/08/23) Cerebral infarction, unspecified (12/08/23) Physical Therapy Treatment Note M2 PT-IP Current Condition Start: 12/08/23 16:28 Freq: NEEDED Status: Active Protocol: Document 12/08/23 16:28 MB (Rec: 12/08/23 17:32 MB [id number]) Physical Therapy Current Condition Current Condition Evaluation Date 12/08/23 Treatment Diagnosis Possible TIA/stroke with recent TIA at [facility] M3 PT-IP Subjective Start: 12/08/23 16:28 Freq: NEEDED Status: Active Protocol: Document 12/09/23 14:26 TS (Rec: 12/09/23 14:42 TS [id number]) Subjective Physical Therapy Visit Type Type Treatment Note Visit Start Time 13:50 Visit Stop Time 14:23 Number of ONLINE RETAILER Visits 1 Physical Therapy Visit Comments Patient Comments Pt found alert i bed, OT in room, pt is agreeable to PT. M4 PT-IP Mobility and Gait Start: 12/08/23 16:28 Freq: NEEDED Status: Active Protocol: Document 12/09/23 14:26 TS (Rec: 12/09/23 14:42 TS [id number]) PT-Bed Mobility Assessment Supine to Sit Supine to Sit Standby Assistance Sit to Supine Sit to Supine Standby Assistance Scooting Scooting to Edge of Bed Standby Assistance PT-Transfer Assessment Sit to and From Stand Sit to and from Stand Contact Guard Assistance Equipment Transfer Assistive Device None,Gait Belt,Straight Cane Comments Mobility Comments Supine to sit SBA with HOB flat. Pt donned socks sitting EOB, required extra time to complete task. STS from bed with no AD CGA, pt has some posterior lean bracing back of LE's against bed for support. Pt ambulated in room initially CGA with no AD, pt was unsteady, balance improved with use of cane. Pt ambulated ~50' with SPC SBA/ CGA. Pt ambulated to toilet. performed own pericare with some verbal cues. STS from toilet SBA with use of grab bar. Pt ambulated anotehr 10' with SPC SBA. He performed steps x12 on step stool CGA with use of grab bar with quick pacing. Pt was left in chair, OT in room, RN notified . Gait Assessment Gait Gait Assistance Required: Standby Assistance,Contact Guard Assist Distance (Feet) 60 Assistive Devices Assistive Device None,Gait Belt,Straight Cane Orthotic/Prosthetic Devices or Brace: No Factors Limiting Gait Function Factors Limiting Gait Function Decreased Activity Tolerance, Decreased Strength,Difficulty Following Directions,Poor Balance,Poor Safety Awareness Stair Climbing Assessment Evaluation Level of Assist On Stairs Contact Guard Assistance Devices Stair Climbing Assistive Devices Right Railing Technique/Endurance Stair Climbing Direction Ascend and Descend Stair Climbing Technique Step to Step Number of Steps Climbed 12 PT-Balance Assessment Sitting Balance and Reactions Static Sitting Balance Ability Good Dynamic Sitting Balance Ability Good Standing Balance and Reactions Static Standing Balance Ability Good Dynamic Standing Balance Ability Fair Device Used SPC/None M5 PT-IP Objective Assessments Start: 12/08/23 16:28 Freq: NEEDED Status: Active Protocol: Document 12/08/23 16:28 MB (Rec: 12/08/23 17:32 MB [id number]) Orientation Orientation/Cognition Level of Alertness Confusional State Comments Confusional state and lethargic and pt occ makes gurgling/wet sounds from throat area. O2 sats remain normal on RA throughout treatment, pt opens eyes occ and no nystagmus noted. Pt does not answer any orientation questions when asked. Gross Range of Motion Upper Extremity ROM Assessment Bilaterally Impaired Lower Extremity ROM Assessment Bilaterally Impaired Strength Upper Extremity Strength Assessment Bilaterally Impaired Lower Extremity Strength Assessment Bilaterally Impaired Comments Strength Comments Pt does not follow ROM or MMT commands well and B APs grossly similar and minimal. He performs minimal HS on the right and PT must initiate this movement with LLE. PT picks up right arm to see if pt will hold it across his face and he grimaces and he is able to hold arm up on his face and is also able to do this with left arm. Minimal squeezing of PT's fingers both hands. Other Assessments Other Other Assessments LLE edema M7 PT-IP Assessment and Plan Start: 12/08/23 16:28 Freq: NEEDED Status: Active Protocol: Document 12/09/23 14:26 TS (Rec: 12/09/23 14:42 TS [id number]) PT Summary Assessment and Plan Potential Rehabilitation Potential Fair Summary Impairments Pain,ROM,Strength,Balance, Coordination,Sensation, Cognition,Bed Mobility, Transfers,Gait,Activity Tolerance Progress Towards Goals Progressing Toward Goals Assessment Summary Arun is making good progress with his mobility this afternoon. He is SBA for all bed mobility and donned socks sitting EOB. He performed STS SBA/CGA with no AD and SPC. He ambulated initially with no AD and was unsteady. Pt's balance improved with use of SPC. He progressed to steps with use of grab CGA x12. He had a quick pace with steps and no buckling or LOB. PT at this time is recommending pt return home with 24/7 assist and HHPT. Goals Bed Mobility Goal Independent Transfer Goal Independent,Cane,Front Wheeled Walker Gait Goal Independent,Cane,Front Wheel Walker Gait Distance 75 Other Goals If d/cing home, pt will need to ascend 2 steps without rail with LRAD and then 13 steps with rail to allow home entrance. Days to Meet Goals 5 Frequency of Treatment Frequency Of Treatment Once a Day Treatment Plan Physical Therapy Treatment Plan Bed Mobility Training,Transfer Training,Gait Training, Therapeutic Exercise,Balance Retraining,Discharge Planning, Hot or Cold Pack,Neuromuscular Re-ed,Coordination Retraining ,Manual Therapy Weight Bearing Status Weight Bearing Status Weight Bear as Tolerated Recommendations To Nursing Amount of Assist Needed 1 Person Assist Discharge Recommendations PT Discharge Recommendations Home with 24/7 Assist Available,Home Health Transportation Needs at Discharge Private Vehicle
[2023-12-09 15:00] VITALS: BP 133/69; PULSE 64; RESP 18; TEMP 36.6; O2SAT 97
--- NOTE | 2023-12-09 15:22 | CM.DANOTE ---
Patient is an 78 yo male who was admitted INPT status on 12/08/23 for TIA vs CVA. Pt has [employer] ADV and COMM INSURANCE and his PCP is Dr. Brigette Ceron. EMR was reviewed. Per , pt with hx of hypertension, kidney disease, and was recently at [facility] to r/o CVA and discharged home and admitted for increased confusion and likely TIA. Per PT/OT, pt is making progress from initial eval and may likely be safe for d/c home with spouse and HH. SW met bedside with pt (still some lingering confusion), spouse, and his adult children who live in [place]. Pt and spouse confirm they live on [place] and pt is mostly independent with ADLs and not yet back to his baseline mentation as they notice pt still a little more confused than typical. They deny any hx of HH and SW explained services and frequency and they are all in agreement with HH referral. SW made initial referral to [facility] as they are the only agency that [place] [facility] and requested they check his [employer] insurance to see if they can accept. F2F completed but not scanned yet. Plan: SW to follow closely tomorrow for further PT/OT to confirm safe d/c home with spouse and if [facility] can accept. MILY Tay Discharge Planning/Care Management CM Discharge Assessment Start: 12/09/23 15:21 Freq: Status: Active Protocol: Document 12/09/23 15:21 BF (Rec: 12/09/23 15:22 BF [id number]) Discharge Planning Assessment Assigned Dry Cleaning Supervisor MILY Silva DPOA/Assigned Designee Name spouse Hayde Advance Directives? Yes Advance Directives on File No History Provided By Patient,Family Member, Significant Other,Medical Record Has Patient been admitted in last 30 No days? Prior Living Arrangements House Household Members spouse Type of transporation used prior to Drives own vehicle admit Independent with ADL's Yes Is patient alert and oriented? Yes Caregiver for Another No DME Already Rented / Owned FWW / Walker Patient/Family Preference Home with Home Health Comment Pending progress with PT/OT Barriers to Discharge No Discharge Plan Home with Home Health Community Services Physical Therapy,Home Health Nurse Transportation Arrangement Spouse Referrals Initiated Home Health If patient plan is home with home health Yes : Has signed face to face form been completed? Medicare Choice List Provided Yes Medicare choice list reviewed on patient,family electronic tablet with SNF/HH Preference [facility] referral made, only agency that covers [place] Whiteboard Updated in Patient Room with Yes name and ext. # of Dry Cleaning Supervisor Review Status In Process Please Provide Date Initial DC 12/09/23 Assessment Was Performed Next Review Type Continued Stay Review
[2023-12-09 19:50] VITALS: BP 155/80; PULSE 80; RESP 18; TEMP 36.7; O2SAT 95
[2023-12-09] MEDS: ATORVASTATIN 20 MG TABLET 80 MG PO (22:14)
[2023-12-10 00:59] VITALS: BP 161/73; PULSE 73; RESP 18; TEMP 36.8; O2SAT 96
[2023-12-10 04:25] VITALS: BP 161/79; PULSE 78; RESP 18; TEMP 36.8; O2SAT 93
[2023-12-10 05:16] LABS: Add Manual Diff / Slide Review NO; Basophils Absolute Auto 100 /uL (0-100); Basophils Percent Auto 0.6 % (0-2); Eosinophils Absolute Auto 300 /uL (0-450); Eosinophils Percent Auto 3.6 % (2-4); Hematocrit 38.7 % (41-53); Hemoglobin 13.2 g/dL (13.5-17.5); Lymphocytes Absolute Auto 900 /uL (1100-4500); Mean Corpuscular HGB Conc 34.2 % (30-36); Mean Corpuscular Hemoglobin 31.8 PG (26-34); Mean Corpuscular Volume 93.1 fL (80-100); Monocytes Absolute Auto 700 /uL (0-900); Monocytes Percent Auto 8.1 % (3-14); Neutrophils Absolute Auto 6900 /uL (1500-7000); Neutrophils Percent Auto 77.7 % (50-75); Platelet Count 310 X10^3/uL (150-400); Red Blood Cell Count 4.15 X10^6/uL (4.5-5.9); Red Cell Distribution Width 13.9 % (11.6-14.8); White Blood Cell Count 8.9 X10^3/uL (4.5-11.0)
[2023-12-10 05:35] LABS: BUN Creatinine Ratio 13.4 (6-22); Blood Urea Nitrogen 13 mg/dL (9-20); Carbon Dioxide 25 mmol/L (22-32); Chloride 100 mmol/L (98-107); Estimated Glomerular Filt Rate > 60 mL/min (>60); Glucose 90 mg/dL (80-110); HEMOLYSIS < 15 (0-50); Potassium 4.3 mmol/L (3.4-5.1); Sodium 132 mmol/L (137-145)
[2023-12-10 08:00] VITALS: BP 157/81; PULSE 77; RESP 16; TEMP 36.9; O2SAT 94
--- NOTE | 2023-12-10 08:55 | SLP.IPNOTE ---
MACHINE SOLE LEVELER entered the room at 8:20 to attempt to provide therapy support during breakfast. The pt was asleep in bed with meal tray next to him. MACHINE SOLE LEVELER attempted to arouse the pt with visual, verbal, and tactile stimuli. The pt did not arouse from sleeping to engage in therapeutic trials with this MACHINE SOLE LEVELER at that time.
[2023-12-10] MEDS: ASPIRIN EC 81 MG TABLET PO (09:25)
[2023-12-10] MEDS: buPROPion 75 MG TABLET 150 MG PO ×2 (09:26→20:13)
[2023-12-10] MEDS: APIXABAN 5 MG TABLET PO ×2 (09:26→20:13)
--- NOTE | 2023-12-10 09:43 | P.PN_ITS ---
Subjective Subjective Interval history: Couldn't urinate after lr removal. Had 500cc retained in bladder after straight cath, then another 600cc later when lr replaced. He will f/up with his urologist as outpatient and have the lr until then. Exam Vital Signs (past 8 hours): - 12/11/23 03:00 12/11/23 07:00 Temperature 98.1 F 98.9 F Pulse Rate 92 H 91 H Respiratory Rate 19 28 H Blood Pressure 164/88 H 178/93 H Pulse Oximetry 96 97 Oxygen Flow Rate 0 0 Oxygen Delivery Method Room Air Oxygen Flow Rate 0 Narrative Exam Narrative: GENERAL: This is a well-nourished, well-developed patient, in no apparent distress, lying still in bed, moving his arms and legs as noted above, but otherwise stating he is not able to move at all, with a flat affect and monotone voice. HEAD: Atraumatic. Normocephalic. No temporal or scalp tenderness. EYES: Pupils equal round and reactive. Extraocular motions intact. No scleral icterus. No injection or drainage. ENT: Mucous membranes pink and moist. NECK: Trachea midline. No JVD, bruits or lymphadenopathy. Supple, nontender, no meningeal signs. CARDIOVASCULAR: Regular rate and rhythm without murmurs, gallops, or rubs. RESPIRATORY: Clear to auscultation. GASTROINTESTINAL: Abdomen soft, non-tender, nondistended. EXTREMITIES: No clubbing, cyanosis, or edema. BACK: Nontender without deformity or crepitance. No flank tenderness. NEUROLOGIC: Alert, oriented, speech fluent, lying with his eyes closed the opening and looking around periodically, not participating with exam though moving both arms and both legs, patellar and biceps reflexes 2+, no focal deficits evident. DERMATOLOGIC: No rashes or skin lesions. Objective Labs 12/10/23 04:51 12/10/23 04:51 [facility] Medical History Bladder neck contracture Hematuria Lower urinary tract symptoms (LUTS) Erectile dysfunction BPH loc w/o ur obs/LUTS CVA (cerebral vascular accident) Peripheral vascular disease Atherosclerosis History of stent insertion of renal artery Renal artery stenosis BPH (benign prostatic hyperplasia) Hypertension Hyperlipidemia Surgical History H/O vasectomy H/O hernia repair Hx of appendectomy S/P TURP Family History Father CVA (cerebral vascular accident) Mother COPD (chronic obstructive pulmonary disease) Sister Adopted Social History household members: spouse lives independently: Yes Smoking Status: Former smoker alcohol intake: former Assessment & Plan Assessment & Plan narrative: 1. 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 Start bupropion. Counseling and encouragement provided. This appears to be the root cause of his hospitalization and weakness. Has outpatient f/up with neurology coming up. 2. Possible TIA, questionable in light of above and negative imaging studies or focal deficits evident. 3. PFO, present on admission and active. 4. Significant right carotid artery stenosis, present on admission and active. 5. Chronic anticoagulation, present on admission and active. 6. Chronic kidney disease, present on admission and active. 7. Hypertension, present on admission and active. 8. Hyperlipidemia, present on admission and active. 9. Right leg edema Plan: -started bupropion 150 mg b.i.d. -placed lr due to urinary retention, will need to f/up with [facility] as outpatient -encourage physical therapy -restarted eliquis -follow neurologic status closely. -permissive hypertension. -evaluations with Physical, Occupational, and speech therapies. -DNR, confirmed with his . Proxy decision maker is . Time Spent With Patient Time with patient: less than 30 minutes
--- NOTE | 2023-12-10 10:04 | PC.NURSE ---
Sleeping soundly at present. Arouses slowly, [place], following some commands but keeps eyes closed. Took pills without issues.Offers no overt c/o. attentive at bedside. Pt wakes and responds to . helping with B'fast.
--- NOTE | 2023-12-10 11:52 | PT-IP ANOTE ---
Pt is lethargic and will not open eyes. PT will attempt to see later this afternoon if time is available.
[2023-12-10 12:00] VITALS: BP 145/73; PULSE 83; RESP 19; TEMP 37.2; O2SAT 98
--- NOTE | 2023-12-10 12:55 | PT.IPTN ---
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 (12/08/23) Cerebral infarction, unspecified (12/08/23) Physical Therapy Treatment Note M2 PT-IP Current Condition Start: 12/08/23 16:28 Freq: NEEDED Status: Active Protocol: Document 12/08/23 16:28 MB (Rec: 12/08/23 17:32 MB [id number]) Physical Therapy Current Condition Current Condition Evaluation Date 12/08/23 Treatment Diagnosis Possible TIA/stroke with recent TIA at [facility] M3 PT-IP Subjective Start: 12/08/23 16:28 Freq: NEEDED Status: Active Protocol: Document 12/10/23 13:27 TS (Rec: 12/10/23 13:40 TS [id number]) Subjective Physical Therapy Visit Type Type Treatment Note Visit Start Time 12:55 Visit Stop Time 13:20 Notes Spouse was present Number of SCRIPT READER Visits 2 Physical Therapy Visit Comments Patient Comments Pt found alert in bed, pt is hypoverbal and seems to have some word finding difficulties . M4 PT-IP Mobility and Gait Start: 12/08/23 16:28 Freq: NEEDED Status: Active Protocol: Document 12/10/23 13:27 TS (Rec: 12/10/23 13:40 TS [id number]) PT-Bed Mobility Assessment Supine to Sit Supine to Sit Standby Assistance Scooting Scooting to Edge of Bed Standby Assistance PT-Transfer Assessment Sit to and From Stand Sit to and from Stand Contact Guard Assistance Equipment Transfer Assistive Device Gait Belt,Straight Cane Comments Mobility Comments Supine to sit SBA, pt requires cues for sequencing. STS from bed with SPC CGA, pt is unsteady and had x1 posterior LOB requiring Myles and use of FWW. He ambulated ~150'SBA with FWW, requires verbal cues to avoid lopes on R side, pt tends to drift to R. He performed stairs x6 with B handrails and CGA, he requires cues for feet all the way on step. Pt was brought back to room in w/c. Pt was left in chair discussing car with hospitalist. Gait Assessment Gait Gait Assistance Required: Standby Assistance Distance (Feet) 150 Assistive Devices Assistive Device None,Gait Belt,Front Wheeled Walker Orthotic/Prosthetic Devices or Brace: No Factors Limiting Gait Function Factors Limiting Gait Function Decreased Activity Tolerance, Decreased Strength,Difficulty Following Directions,Poor Balance,Poor Safety Awareness Stair Climbing Assessment Evaluation Level of Assist On Stairs Contact Guard Assistance Devices Stair Climbing Assistive Devices Left Railing,Right Railing Technique/Endurance Stair Climbing Direction Ascend and Descend Stair Climbing Technique Step to Step Number of Steps Climbed 6 PT-Balance Assessment Sitting Balance and Reactions Static Sitting Balance Ability Good Dynamic Sitting Balance Ability Good Standing Balance and Reactions Static Standing Balance Ability Good Dynamic Standing Balance Ability Fair Device Used FWW/SPC M5 PT-IP Objective Assessments Start: 12/08/23 16:28 Freq: NEEDED Status: Active Protocol: Document 12/08/23 16:28 MB (Rec: 12/08/23 17:32 MB [id number]) Orientation Orientation/Cognition Level of Alertness Confusional State Comments Confusional state and lethargic and pt occ makes gurgling/wet sounds from throat area. O2 sats remain normal on RA throughout treatment, pt opens eyes occ and no nystagmus noted. Pt does not answer any orientation questions when asked. Gross Range of Motion Upper Extremity ROM Assessment Bilaterally Impaired Lower Extremity ROM Assessment Bilaterally Impaired Strength Upper Extremity Strength Assessment Bilaterally Impaired Lower Extremity Strength Assessment Bilaterally Impaired Comments Strength Comments Pt does not follow ROM or MMT commands well and B APs grossly similar and minimal. He performs minimal HS on the right and PT must initiate this movement with LLE. PT picks up right arm to see if pt will hold it across his face and he grimaces and he is able to hold arm up on his face and is also able to do this with left arm. Minimal squeezing of PT's fingers both hands. Other Assessments Other Other Assessments LLE edema M7 PT-IP Assessment and Plan Start: 12/08/23 16:28 Freq: NEEDED Status: Active Protocol: Document 12/10/23 13:27 TS (Rec: 12/10/23 13:40 TS [id number]) PT Summary Assessment and Plan Potential Rehabilitation Potential Fair Summary Impairments Pain,ROM,Strength,Balance, Coordination,Sensation, Cognition,Bed Mobility, Transfers,Gait,Activity Tolerance Progress Towards Goals Progressing Toward Goals Assessment Summary Arun is making some progress with his mobility this session . He is SBA for all bed mobility with cues. He progressed his gait to ~150' SBA with FWW. He tends to drift to R and bump into wall. He performed steps x6 with B handrails CGA, he had no buckling or LOB. He does have some difficulty following directions and appears to have some word finding difficulties. PT is recommending Home 24/7 assist with HHPT. Goals Bed Mobility Goal Independent Transfer Goal Independent,Cane,Front Wheeled Walker Gait Goal Independent,Cane,Front Wheel Walker Gait Distance 75 Other Goals If d/cing home, pt will need to ascend 2 steps without rail with LRAD and then 13 steps with rail to allow home entrance. Days to Meet Goals 5 Frequency of Treatment Frequency Of Treatment Once a Day Treatment Plan Physical Therapy Treatment Plan Bed Mobility Training,Transfer Training,Gait Training, Therapeutic Exercise,Balance Retraining,Discharge Planning, Hot or Cold Pack,Neuromuscular Re-ed,Coordination Retraining ,Manual Therapy Weight Bearing Status Weight Bearing Status Weight Bear as Tolerated Recommendations To Nursing Amount of Assist Needed 1 Person Assist Discharge Recommendations PT Discharge Recommendations Home with 24/7 Assist Available,Home Health Transportation Needs at Discharge Private Vehicle
--- NOTE | 2023-12-10 14:47 | CM.DPC ---
DCP Continued Reviewed EMR and team rounds for pt?s medical status. Per hospitalist, pt is set to dc today with spouse back to [facility]. Per [facility], referral was not obtained and needed to be resent. [facility] (Perla) confirmed that [employer] insurance should be accepted. [employer] resent clinicals. [employer] met with pt and spouse at bedside. Pt was sitting upright in chair, pt was pleasant but deferring to spouse for most of conversation; still some lingering confusion. [employer] confirmed that pt's insurance is primarily [employer] ([employer] recently changed to [employer] per spouse). Pt and spouse were agreeable to HH referral and verbalized understanding that they could ask to cancel if no longer necessary. Pt eager to return home. Pt and spouse confirmed their transport to [facility] has been arranged. Plan: Pt to dc home to [facility] with spouse. HH order in for PT/OT, referral sent to [facility]. F2F completed and faxed with order. CM Team following for any pending discharge needs. VINCENZO Hansen
[2023-12-10 16:00] VITALS: BP 159/81; PULSE 97; RESP 21; TEMP 36.4; O2SAT 97
[2023-12-10 19:40] VITALS: BP 158/80; PULSE 68; RESP 19; TEMP 36.6; O2SAT 98
[2023-12-10] MEDS: ATORVASTATIN 20 MG TABLET 80 MG PO (20:13)
[2023-12-11] VITALS (28 sets, daily range): BP systolic 129–178; BP diastolic 71–93; PULSE 78–103; RESP 14–30; TEMP 36.7–37.2; O2SAT 87–100
[2023-12-11] MEDS: buPROPion 75 MG TABLET 150 MG PO (08:43)
[2023-12-11] MEDS: TAMSULOSIN 0.4 MG CAPSULE PO (08:44)
[2023-12-11] MEDS: APIXABAN 5 MG TABLET PO ×2 (08:44→20:49)
[2023-12-11] MEDS: ASPIRIN EC 81 MG TABLET PO (08:44)
--- NOTE | 2023-12-11 09:30 | PT.IPTN ---
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 (12/08/23) Cerebral infarction, unspecified (12/08/23) Physical Therapy Treatment Note M2 PT-IP Current Condition Start: 12/08/23 16:28 Freq: NEEDED Status: Active Protocol: Document 12/08/23 16:28 MB (Rec: 12/08/23 17:32 MB [id number]) Physical Therapy Current Condition Current Condition Evaluation Date 12/08/23 Treatment Diagnosis Possible TIA/stroke with recent TIA at [facility] M3 PT-IP Subjective Start: 12/08/23 16:28 Freq: NEEDED Status: Active Protocol: Document 12/11/23 09:00 MB (Rec: 12/11/23 09:30 MB [id number]) Subjective Physical Therapy Visit Type Type Treatment Note Visit Start Time 09:00 Visit Stop Time 09:19 Number of DIRECTOR ERP Visits 0 Physical Therapy Visit Comments Patient Comments Pt hook lying in bed, not eating breakfast and holding coffee cup. Pt only makes three verbalizations during treatment: right/left leg and hearing aides? and these are well into the treatment time. M4 PT-IP Mobility and Gait Start: 12/08/23 16:28 Freq: NEEDED Status: Active Protocol: Document 12/11/23 09:00 MB (Rec: 12/11/23 09:30 MB [id number]) PT-Bed Mobility Assessment Supine to Sit Supine to Sit Contact Guard Assistance Sit to Supine Sit to Supine Contact Guard Assistance Scooting Scooting to Edge of Bed Contact Guard Assistance PT-Transfer Assessment Comments Mobility Comments Pt blankly looks at PT and is unable to find words, it appears. Extreme difficulty following simple commands and it requires 19 minutes to get to the EOB and back to bed. Dependent assist to put on gown so that lower body is covered. Pt does state hearing aides when into the treatment and PT checks hearing aides and they do not appear to have been plugged in and PT positions them on charging units and plugs in. No grimacing with minimal B shoulder use with PT. PT-Balance Assessment Sitting Balance and Reactions Static Sitting Balance Ability Good Dynamic Sitting Balance Ability Good M5 PT-IP Objective Assessments Start: 12/08/23 16:28 Freq: NEEDED Status: Active Protocol: Document 12/08/23 16:28 MB (Rec: 12/08/23 17:32 MB [id number]) Orientation Orientation/Cognition Level of Alertness Confusional State Comments Confusional state and lethargic and pt occ makes gurgling/wet sounds from throat area. O2 sats remain normal on RA throughout treatment, pt opens eyes occ and no nystagmus noted. Pt does not answer any orientation questions when asked. Gross Range of Motion Upper Extremity ROM Assessment Bilaterally Impaired Lower Extremity ROM Assessment Bilaterally Impaired Strength Upper Extremity Strength Assessment Bilaterally Impaired Lower Extremity Strength Assessment Bilaterally Impaired Comments Strength Comments Pt does not follow ROM or MMT commands well and B APs grossly similar and minimal. He performs minimal HS on the right and PT must initiate this movement with LLE. PT picks up right arm to see if pt will hold it across his face and he grimaces and he is able to hold arm up on his face and is also able to do this with left arm. Minimal squeezing of PT's fingers both hands. Other Assessments Other Other Assessments LLE edema M7 PT-IP Assessment and Plan Start: 12/08/23 16:28 Freq: NEEDED Status: Active Protocol: Document 12/11/23 09:00 MB (Rec: 12/11/23 09:30 MB [id number]) PT Summary Assessment and Plan Potential Rehabilitation Potential Fair Summary Impairments Pain,ROM,Strength,Balance, Coordination,Sensation, Cognition,Bed Mobility, Transfers,Gait,Activity Tolerance Progress Towards Goals Slow Progress - Other Assessment Summary Pt presents with high confusion this morning and it takes 19 minutes to get to the EOB sitting with PT only using simple functional commands and PT also demonstrating what to do. PT dons gown and shoes with dependent assistance. Cognition change is a big barrier to consistency with mobility, it seems, in review of the past few treatment dates. Goals Bed Mobility Goal Independent Transfer Goal Independent,Cane,Front Wheeled Walker Gait Goal Independent,Cane,Front Wheel Walker Gait Distance 75 Other Goals If d/cing home, pt will need to ascend 2 steps without rail with LRAD and then 13 steps with rail to allow home entrance. Days to Meet Goals 5 Frequency of Treatment Frequency Of Treatment Once a Day Treatment Plan Physical Therapy Treatment Plan Bed Mobility Training,Transfer Training,Gait Training, Therapeutic Exercise,Balance Retraining,Discharge Planning, Hot or Cold Pack,Neuromuscular Re-ed,Coordination Retraining ,Manual Therapy Weight Bearing Status Weight Bearing Status Weight Bear as Tolerated Recommendations To Nursing Amount of Assist Needed 1 Person Assist Discharge Recommendations PT Discharge Recommendations Home with 28/02 Assist Available,Home Health,SNF Rehab Transportation Needs at Discharge Private Vehicle,Wheelchair/ Cabulance
--- NOTE | 2023-12-11 09:40 | P.DS_ITS ---
History of Present Illness History of Present Illness Chief complaint: thinks is having a stroke or TIA Narrative: The patient is an 78-year-old male with hypertension, dyslipidemia, single kidney, chronic kidney disease, and a recent diagnosis of PFO. The patient had a possible stroke a week ago and was admitted at [facility] for several days. During that workup he was found to have a PFO as well as carotid artery disease with a referral to vascular. The patient is on Eliquis and has been compliant. Today he was unable to speak or follow commands for a period of time. The patient presented to the ED where he was still not able to follow commands. Initial imaging was negative for large vessel occlusion or hemorrhage. Tele neuro recommended holding his anticoagulation for a short time and then resuming in observing his neurologic progress. He was not a candidate for thrombolytics given anticoagulation status. The patient does have a fairly tight right carotid, this may be something needs to be dealt with surgically in the next very short period of time. Additional history: Is obtained from the . The patient is not answering questions but does follow commands and move hands and feet when asked to. He does not answer questions but does make complete sentences that are articulate occasionally. There is no obvious facial droop in his speech is not slurred when he speaks. His last clear well known was 10:15 a.m.. He was sleeping in the car at the [facility]. He awoke some time later and it was unclear if he was normal neurologically. Ultimately several hours later the patient made it clear that he was having difficulty speaking and felt weak all over. He was brought to the ED. he is on chronic anticoagulation for unclear reasons. His left leg is swollen. He has been diagnosed with a PFO last week when admitted for TIA at [facility]. He is compliant with his anticoagulation. Both his time window, as well as his anticoagulation made him not a candidate for thrombolytics. CT brain was negative. CT a head and neck reveal bilateral carotid stenosis right is fairly significant at 90%. He is right handed. His left carotid is about 50% stenosed. MRI was completed with no acute findings. The patient's notes that he has suffered progressive dementia and is quite frustrated by this in his having increased frequency of anxiety episodes. She almost thought that this might be anxiety related today. Discharge Providers Provider Date of admission: 12/08/23 14:25 Discharge Date: 12/10/23 Primary care physician: Brigette Ceron MD Consults: 12/08/23 12:48 Consult to Speech Therapy Evaluate & Treat Comment: Physician Instructions: Evaluate and treat 12/08/23 15:01 Consult to Discharge Planning Routine Comment: Consult to Occupational Therapy Evaluate & Treat Comment: Physician Instructions: Evaluate and treat Consult to Physical Therapy Evaluate & Treat Comment: Physician Instructions: Evaluate and Treat Consult to Speech Therapy Evaluate & Treat Comment: Physician Instructions: Evaluate and treat 12/10/23 13:28 Consult to Physical Therapy Evaluate & Treat Comment: Safe Home Mobility Physician Instructions: FWW Discharge provider: Leonel Awad DO Summary Hospital Course Discharge Diagnosis: 1. Severe depression, untreated. Start bupropion. Counseling and encouragement provided. This appears to be the root cause of his hospitalization and weakness. 2. Possible TIA, questionable in light of above and negative imaging studies or focal deficits evident. 3. PFO, present on admission and active. 4. Significant right carotid artery stenosis, present on admission and active. 5. Chronic anticoagulation, present on admission and active. 6. Chronic kidney disease, present on admission and active. 7. Hypertension, present on admission and active. 8. Hyperlipidemia, present on admission and active. 9. Right leg edema Hospital Course: Admitted for possible TIA. No evidence of stroke on MRI. CTA head showed known carotid artery stenosis, which he has vascular f/up outpatient already scheduled. Placed on aspirin and lipitor in addition to his eliquis. Appears quite depressed, so placed on wellbutrin. Has f/up with neuro for dementia eval at end of month. PT/OT cleared for home with . Exam Vital Signs (past 8 hours): - 12/10/23 08:00 Temperature 98.5 F Pulse Rate 77 Respiratory Rate 16 Blood Pressure 157/81 H Pulse Oximetry 94 Oxygen Delivery Method Room Air Oxygen Flow Rate 0 Narrative Exam Narrative: GENERAL: This is a well-nourished, well-developed patient, in no apparent distress, lying still in bed, moving his arms and legs as noted above, but otherwise stating he is not able to move at all, with a flat affect and monotone voice. HEAD: Atraumatic. Normocephalic. No temporal or scalp tenderness. EYES: Pupils equal round and reactive. Extraocular motions intact. No scleral icterus. No injection or drainage. ENT: Mucous membranes pink and moist. NECK: Trachea midline. No JVD, bruits or lymphadenopathy. Supple, nontender, no meningeal signs. CARDIOVASCULAR: Regular rate and rhythm without murmurs, gallops, or rubs. RESPIRATORY: Clear to auscultation. GASTROINTESTINAL: Abdomen soft, non-tender, nondistended. EXTREMITIES: No clubbing, cyanosis, or edema. BACK: Nontender without deformity or crepitance. No flank tenderness. NEUROLOGIC: Alert, oriented, speech fluent, lying with his eyes closed the opening and looking around periodically, not participating with exam though moving both arms and both legs, patellar and biceps reflexes 2+, no focal deficits evident. DERMATOLOGIC: No rashes or skin lesions. Objective Labs 12/10/23 04:51 12/10/23 04:51 Labs: Laboratory Results - last 24 hr 12/10/23 04:51 WBC 8.9 RBC 4.15 L Hgb 13.2 L Hct 38.7 L MCV 93.1 MCH 31.8 MCHC 34.2 RDW 13.9 Plt Count 310 Neut % (Auto) 77.7 H Lymph % (Auto) 10.0 L [place] % (Auto) 8.1 Eos % (Auto) 3.6 Baso % (Auto) 0.6 Neut # (Auto) 6900 Lymph # (Auto) 900 L [place] # (Auto) 700 Eos # (Auto) 300 Baso # (Auto) 100 Sodium 132 L Potassium 4.3 Chloride 100 Carbon Dioxide 25 BUN 13 Creatinine 0.97 Estimated GFR > 60 BUN/Creatinine Ratio 13.4 Glucose 90 Calcium 9.0 PFSH Medical History Bladder neck contracture Hematuria Lower urinary tract symptoms (LUTS) Erectile dysfunction BPH loc w/o ur obs/LUTS CVA (cerebral vascular accident) Peripheral vascular disease Atherosclerosis History of stent insertion of renal artery Renal artery stenosis BPH (benign prostatic hyperplasia) Hypertension Hyperlipidemia Surgical History H/O vasectomy H/O hernia repair Hx of appendectomy S/P TURP Family History Father CVA (cerebral vascular accident) Mother COPD (chronic obstructive pulmonary disease) Sister Adopted Social History household members: spouse lives independently: Yes Smoking Status: Former smoker alcohol intake: former Discharge Plan Discharge Plan Patient Disposition: Home Provider Discharge Comment: We think you had another TIA. Please start taking aspirin and lipitor daily. I've also put you on wellbutrin for your depression. Discharge orders & Medications Prescriptions: New Eliquis 5 mg Tablet 5 mg PO BID Qty: 60 0RF atorvastatin 80 mg tablet 80 mg PO BEDTIME Qty: 30 0RF bupropion HCl 150 mg tablet sustained-release 12 hr 150 mg PO BID Qty: 60 0RF Continued clonidine HCl [Catapres] 0.2 MG tablet 0.2 mg PO BID Qty: 0 tamsulosin 0.4 mg capsule 0.4 mg PO QPM Qty: 90 3RF losartan 50 mg tablet 50 mg PO BID diltiazem HCl 180 mg capsule,extended release 24hr 180 mg PO DAILY Qty: 30 0RF furosemide 40 mg tablet 40 mg PO DAILY sertraline 50 mg tablet 50 mg PO DAILY aspirin 81 mg Tablet,Delayed Release (Dr/Ec) 81 mg PO DAILY Qty: 30 0RF rosuvastatin 10 mg tablet 10 mg PO QPM amlodipine 10 mg tablet 10 mg PO DAILY Follow up/Referrals: Brigette Ceron MD [Primary Care Provider] - 2 Weeks Visit Report/Discharge Packet Stand Alone Forms: Patient Portal/API, Stroke Signs & Symptoms Discharge Data Primary Care Provider: Brigette Ceron
--- NOTE | 2023-12-11 10:47 | CM.DPC ---
Addendum entered by Jennie Yanes R.N. 12/11/23 14:46: It is noted that rapid response was called due to seizure activity. Patient is now in ICU for monitoring. Called [facility] and spoke to Emiliana, and let her know that patient is not discharging home today secondary to seizure. She will hold on to the referral. Addendum entered by Jennie Yanes R.N. 12/11/23 13:22: Patient will not be discharging home today, a rapid response was called to patient's room, was taken downstairs for imaging. Addendum entered by Jennie Yanes R.N. 12/11/23 12:19: Met with patient's spouse, Hayde. She is concerned about his behaviors, and going home because he is so agitated. Updated Dr. Awad, who stated, may be the new medication he was started on, Wellbutrin. He may end up keeping patient another day. Patient also has a catheter, spouse is concerned that he got this because he did not have his flomax. Did bring in the [employer], she is aware that he may eventually need half-way care/memory care. Brought her in a Medicaid application for terminal make up operator care, encouraged her to fill it out, and can return to care management, and can submit for her. It is uncertain as to his monthly finances at this time. Spouse knows that memory care facilities are expensive. Will be evaluated again today, will work with P.T. and will see if he can discharge, may need to stay another day to see if he is not as agitated regarding his medication. Original Note: DCP Cont: Hospitalist has discharge orders in, patient will need to be going home with lr, secondary to urinary retention. Patient also has dementia. [facility] referral was placed. Called Adam at [facility], for MILY Sotelo, had emailed referral. Confirmed with Adam that they do accept patient's [employer], gave Adam some background on patient. Ordered RN, and P.T. Brought in [facility] brochure. Spouse is nervous, about him going home, he is noticing some agitation. Dr. Awad will meet with spouse again. If he does not discharge today, may need to have a conversation of half-way care. Will still go ahead and send DC summary and orders to [facility]. P: DCP to continue to follow. Patient does have DC orders, but uncertain if he will discharge home today. Jennie Yanes RN/Microsystems Engineer
--- NOTE | 2023-12-11 11:10 | PC.NURSE ---
Addendum entered by Fatimah Wu R.N. 12/11/23 14:47: 1300 in room calls staff for help he choked on coffee pt is cyanotic with agonol breathing and unresponse with seizure like activity. suction and NRB mask applied carotid pulse positive rapid response called, Dr. Awad here -pt now pink and breathing with sats greater than 90 remains unresponse to sternal rub to CT then to room 231 ICU keppra gtts started. Original Note: 0800 Pt alert and very [place] atempt to help with hearing aids but pt keeps moving them around so we just put them away. pt having trouble keeping focus and finishing a thought, knows person only Im confused. 16fr lr placed and greater than 600 return light clear urine. 1030 here and asking questions about his mobility, pt needs alot of cuing, CEZAR walker. PT to eval before \dc. aware
--- NOTE | 2023-12-11 12:58 | DI.CT.S_ITS ---
PROCEDURE: CT STROKE INDICATIONS: possible seizure, unresponsive TECHNIQUE: Noncontrast 4.5 mm thick angled axial sections acquired from the foramen magnum to the vertex, with coronal reformats. For radiation dose reduction, the following was used: automated exposure control, adjustment of mA and/or kV according to patient size. COMPARISON: [facility], CR, XR CHEST 1V, 12/11/2023, 13:10. [facility], MR, MR HEAD/BRAIN WO CON, 12/08/2023, 15:24. [facility], CT, CT ANGIO HEAD AND NECK, 12/08/2023, 12:15. [facility], CT, CT STROKE, 12/08/2023, 12:12. FINDINGS: Image quality: This examination is limited by involuntary motion artifact. CSF spaces: Basal cisterns are patent. No extra-axial fluid collections. The ventricles are symmetric in size and shape. Brain: No intracranial bleeds or masses. There is cerebral volume loss for age, with resultant ventricular and sulcal prominence. There are periventricular and deep white matter chronic small vessel ischemic changes. There is intracranial internal carotid artery atherosclerosis. Skull and face: Calvarium and visualized facial bones appear intact, without suspicious lesions. Sinuses: Focal moderate mucosal thickening can be seen involving the right maxillary sinus. Milder mucosal thickening can be seen elsewhere within the paranasal sinuses. No abnormal fluid is seen within the mastoid air cells. IMPRESSION: No acute intracranial hemorrhage is seen. No acute intracranial process is seen. Additional findings: Focal right maxillary sinus disease Note: Case discussed by telephone with Dr. Awad at 1:28 p.m. [place] time on December 11, 2023. This study fulfills neurological imaging criteria for inclusion or exclusion of acute stroke therapies based on available published neurological guidelines. Dictated by: Raúl Chandra M.D. on 12/11/2023 at 12:21 Approved by: Raúl Chandra M.D. on 12/11/2023 at 12:29
--- NOTE | 2023-12-11 13:01 | DI.RAD.S_ITS ---
PROCEDURE: XR CHEST 1V INDICATIONS: possible aspiration TECHNIQUE: One view of the chest was acquired. COMPARISON: [facility], CR, XR CHEST 1 VIEW, 11/27/2023, 15:31. [facility], CR, XR CHEST 1V, 12/08/2023, 12:20. FINDINGS: Surgical changes and devices: None. Lungs and pleura: On this semiupright portable chest examination, no large pneumothorax or large pleural effusions are seen. No focal infiltrates are seen. Low lung volumes are noted. This causes a crowded appearance to the lung markings and limits evaluation. Mild generalized interstitial prominence can be seen. Mediastinum: Mediastinal contours appear normal. Heart size is normal. Atherosclerotic calcification of the aortic arch is noted. Bones and chest wall: No suspicious bony lesions. Age-appropriate bony degenerative changes are seen. Overlying soft tissues appear unremarkable. IMPRESSION: Low lung volumes, with a crowded appearance to the lung markings. No brian acute cardiopulmonary abnormality is seen. If there is strong clinical concern for developing aspiration pneumonia in this patient, please consider a short term followup examination, as aspiration pneumonia can have a delayed radiographic appearance. Dictated by: Raúl Chandra M.D. on 12/11/2023 at 12:48 Approved by: Raúl Chandra M.D. on 12/11/2023 at 12:50
[2023-12-11 13:19] LABS: Add Manual Diff / Slide Review NO; Basophils Absolute Auto 100 /uL (0-100); Basophils Percent Auto 0.9 % (0-2); Eosinophils Absolute Auto 200 /uL (0-450); Eosinophils Percent Auto 1.6 % (2-4); Hematocrit 40.8 % (41-53); Hemoglobin 13.5 g/dL (13.5-17.5); Lymphocytes Absolute Auto 1500 /uL (1100-4500); Lymphocytes Percent Auto 9.3 % (25-40); Mean Corpuscular HGB Conc 33.2 % (30-36); Mean Corpuscular Hemoglobin 31.4 PG (26-34); Mean Corpuscular Volume 94.7 fL (80-100); Monocytes Absolute Auto 1300 /uL (0-900); Monocytes Percent Auto 8.2 % (3-14); Neutrophils Absolute Auto 12700 /uL (1500-7000); Platelet Count 316 X10^3/uL (150-400); Red Blood Cell Count 4.31 X10^6/uL (4.5-5.9); Red Cell Distribution Width 13.9 % (11.6-14.8); White Blood Cell Count 15.9 X10^3/uL (4.5-11.0)
[2023-12-11 13:31] LABS: Albumin 4.7 g/dL (3.5-5.0); Albumin Globulin Ratio 1.4 (1.0-2.8); Alkaline Phosphatase 56 U/L (38-126); Aspartate Aminotransferase 51 IU/L (17-59); BUN Creatinine Ratio 15.8 (6-22); Bilirubin Total 1.5 mg/dL (0.2-1.3); Blood Urea Nitrogen 18 mg/dL (9-20); Calcium 9.2 mg/dL (8.4-10.2); Carbon Dioxide 13 mmol/L (22-32); Chloride 97 mmol/L (98-107); Estimated Glomerular Filt Rate > 60 mL/min (>60); Globulin 3.4 g/dL (1.7-4.1); Glucose 139 mg/dL (80-110); HEMOLYSIS < 15 (0-50); Magnesium 1.8 mg/dL (1.6-2.3); Potassium 4.4 mmol/L (3.4-5.1); Sodium 131 mmol/L (137-145); Total Protein 8.1 g/dL (6.3-8.2)
--- NOTE | 2023-12-11 13:32 | PC.NURSE ---
Addendum entered by Ankit Mancuso R.N. 12/11/23 17:25: 1715 - Patient significantly more alert and oriented. Talking in complete, coherent sentences. States full name, date of , situation, place, and year. Original Note: 1320 - Received from after rapid response called for seizure activity. Patient transported from CT via bed, moved to ICU bed on slide board. Patient unresponsive and not following commands. 2L NC at 97%, all other vitals stable. Extremely coarse upper airway with heavy mucous, RT to deep suction. Continuing to monitor with at bedside.
[2023-12-11] MEDS: levETIRAcetam 1,000 MG in SODIUM CHLORIDE 0.9% 100 ML 440 MG IV (13:34)
[2023-12-11 13:37] LABS: Alanine Aminotransferase 33 IU/L (<50)
[2023-12-11 13:39] LABS: NT-proBNP (BNP-Adult 18+) 5700 pg/mL (<450)
[2023-12-11 13:43] LABS: Troponin I 0.092 ng/mL (0.01-0.034)
[2023-12-11 13:45] LABS: Lactate (Lactic Acid) 10.1 mmol/L (0.7-2.1)
[2023-12-11] MEDS: SODIUM CHLORIDE 0.9% 1,000 ML 1000 ML IV (14:02)
[2023-12-11] MEDS: SODIUM CHLORIDE 0.9% 1,000 ML 100 ML IV (14:50)
[2023-12-11 14:52] LABS: Reflexed Lactate in 2 Hours Y
[2023-12-11 15:01] LABS: MRSA (Nasal) PCR NOT DETECTED (Not Detect)
[2023-12-11 15:27] LABS: Lactate 2HR (Lactic Acid Rflx) 1.9 mmol/L (0.7-2.1)
--- NOTE | 2023-12-11 15:34 | PT-IP ANOTE ---
Spoke with and he states that pt had seizure today and pt transferred to ICU. DO recommends d/c PT and they will reorder PT if pt appropriate.
--- NOTE | 2023-12-11 18:22 | PM.PN.1 ---
Subjective Subjective Interval history: Patient seen and was somewhat tremulous and diaphoretic. Lr replaced this AM with 600cc out. concerned that he is not normally this shaky and anxious. Update: At approx 1300 a rapid response called due to patient being unresponsive. He appeared to be having a seizure. He was turned on his side, and before ativan could be given his seizure stopped lasting 2 minutes. Sats lowered to 70's and improved with oxymask to 90's. Head CT and CXR ordered both which came back normal. Labs showed elevated WBC, prolactin, lactate of 10. Keppra IV given and he was transferred to ICU. Exam Vital Signs (past 8 hours): - 12/11/23 11:00 12/11/23 13:00 12/11/23 13:05 Temperature 98.6 F Pulse Rate 98 H 103 H 99 H Respiratory Rate 20 28 H Blood Pressure 145/82 H 166/91 H 156/91 H Pulse Oximetry 95 87 L 99 Oxygen Flow Rate 0 12/11/23 13:39 12/11/23 14:05 12/11/23 15:06 Temperature 99.0 F Pulse Rate 90 90 Respiratory Rate 20 24 Blood Pressure 142/76 H Pulse Oximetry 96 96 97 Oxygen Flow Rate 2 12/11/23 15:30 12/11/23 15:30 12/11/23 16:00 Temperature 98.9 F Pulse Rate 97 H 98 H Respiratory Rate Blood Pressure 152/77 H Pulse Oximetry 97 97 Oxygen Flow Rate 12/11/23 16:00 12/11/23 16:30 12/11/23 16:30 Temperature Pulse Rate 90 Respiratory Rate Blood Pressure 159/79 H 147/82 H Pulse Oximetry 97 Oxygen Flow Rate 12/11/23 17:00 12/11/23 17:00 12/11/23 17:30 Temperature Pulse Rate 93 H Respiratory Rate Blood Pressure 155/75 H 150/77 H Pulse Oximetry 99 Oxygen Flow Rate 12/11/23 17:30 12/11/23 18:00 12/11/23 18:00 Temperature Pulse Rate 89 87 Respiratory Rate 19 Blood Pressure 160/82 H Pulse Oximetry 99 99 Oxygen Flow Rate Oxygen Delivery Method Room Air Oxygen Flow Rate 2 Narrative Exam Narrative: GENERAL: This is a well-nourished, well-developed patient, diaphoretic, tremulous HEAD: Atraumatic. Normocephalic. No temporal or scalp tenderness. EYES: Pupils equal round and reactive. Extraocular motions intact. No scleral icterus. No injection or drainage. ENT: Mucous membranes pink and moist. NECK: Trachea midline. No JVD, bruits or lymphadenopathy. Supple, nontender, no meningeal signs. CARDIOVASCULAR: Regular rate and rhythm without murmurs, gallops, or rubs. RESPIRATORY: Clear to auscultation. GASTROINTESTINAL: Abdomen soft, non-tender, nondistended. EXTREMITIES: No clubbing, cyanosis, or edema. BACK: Nontender without deformity or crepitance. No flank tenderness. NEUROLOGIC: Alert, oriented, speech fluent, lying with his eyes closed the opening and looking around periodically, not participating with exam though moving both arms and both legs, patellar and biceps reflexes 2+, no focal deficits evident. DERMATOLOGIC: No rashes or skin lesions. Objective Labs 12/11/23 13:09 12/11/23 13:09 Labs: Laboratory Results - last 24 hr 12/11/23 12/11/23 12/11/23 13:09 13:30 15:10 WBC 15.9 H D RBC 4.31 L Hgb 13.5 Hct 40.8 L MCV 94.7 MCH 31.4 MCHC 33.2 RDW 13.9 Plt Count 316 Neut % (Auto) 80.0 H Lymph % (Auto) 9.3 L [place] % (Auto) 8.2 Eos % (Auto) 1.6 L Baso % (Auto) 0.9 Neut # (Auto) 21024 H Lymph # (Auto) 1500 [place] # (Auto) 1300 H Eos # (Auto) 200 Baso # (Auto) 100 Sodium 131 L Potassium 4.4 Chloride 97 L Carbon Dioxide 13 L BUN 18 Creatinine 1.14 Estimated GFR > 60 BUN/Creatinine Ratio 15.8 Glucose 139 H Lactate 10.1 H* 1.9 Calcium 9.2 Magnesium 1.8 Total Bilirubin 1.5 H AST 51 ALT 33 Alkaline Phosphatase 56 Troponin I 0.092 H NT-Pro-B Natriuret Pep 5700 H Total Protein 8.1 Albumin 4.7 Globulin 3.4 Albumin/Globulin Ratio 1.4 Prolactin 27.0 H Nasal Screen MRSA (PCR) Not detected [facility] Medical History Bladder neck contracture Hematuria Lower urinary tract symptoms (LUTS) Erectile dysfunction BPH loc w/o ur obs/LUTS CVA (cerebral vascular accident) Peripheral vascular disease Atherosclerosis History of stent insertion of renal artery Renal artery stenosis BPH (benign prostatic hyperplasia) Hypertension Hyperlipidemia Surgical History H/O vasectomy H/O hernia repair Hx of appendectomy S/P TURP Family History Father CVA (cerebral vascular accident) Mother COPD (chronic obstructive pulmonary disease) Sister Adopted Social History household members: spouse lives independently: Yes Smoking Status: Former smoker alcohol intake: former Assessment & Plan Assessment & Plan narrative: 0. New onset generalized seizure, not present on admission. Likely due to wellbutrin lowering siezure threshold. This has been stopped. Head CT negative. 1. 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 Has outpatient f/up with neurology coming up. 2. Possible TIA, questionable in light of above and negative imaging studies or focal deficits evident. 3. PFO, present on admission and active. 4. Significant right carotid artery stenosis, present on admission and active. 5. Chronic anticoagulation, present on admission and active. 6. Chronic kidney disease, present on admission and active. 7. Hypertension, present on admission and active. 8. Hyperlipidemia, present on admission and active. 9. Right leg edema 10. Urinary retention. Had 500cc after straight cath, then 600cc in bladder after lr replaced. Continue flomax. Plan: -transfer to ICU -start keppra 1g IV BID -seizure precautions -stop bupropion -tele -placed lr due to urinary retention, will need to f/up with [facility] as outpatient -encourage physical therapy -continue eliquis -follow neurologic status closely. -evaluations with Physical, Occupational therapy -DNR, confirmed with his . Proxy decision maker is . I spent a total of 35 minutes of critical care time on this patient's care today; this time is exclusive of procedural time. Time Spent With Patient Time with patient: less than 30 minutes
[2023-12-11] MEDS: LOSARTAN 50 MG TABLET PO (20:50)
[2023-12-11] MEDS: ATORVASTATIN 20 MG TABLET 80 MG PO (20:50)
[2023-12-11] MEDS: ATORVASTATIN 20 MG TABLET PO (20:50)
[2023-12-12] VITALS (53 sets, daily range): BP systolic 114–169; BP diastolic 57–93; PULSE 67–96; RESP 16–64; TEMP 36.3–36.9; O2SAT 92–99
[2023-12-12] MEDS: levETIRAcetam 1,000 MG in SODIUM CHLORIDE 0.9% 100 ML 440 MG IV ×2 (00:25→12:24)
[2023-12-12] MEDS: SODIUM CHLORIDE 0.9% 1,000 ML 50 ML IV (03:05)
[2023-12-12 06:08] LABS: Add Manual Diff / Slide Review NO; Basophils Absolute Auto 100 /uL (0-100); Basophils Percent Auto 0.5 % (0-2); Eosinophils Absolute Auto 300 /uL (0-450); Eosinophils Percent Auto 3.2 % (2-4); Hematocrit 35.2 % (41-53); Hemoglobin 12.1 g/dL (13.5-17.5); Lymphocytes Absolute Auto 800 /uL (1100-4500); Lymphocytes Percent Auto 7.6 % (25-40); Mean Corpuscular HGB Conc 34.3 % (30-36); Mean Corpuscular Hemoglobin 31.9 PG (26-34); Mean Corpuscular Volume 93.1 fL (80-100); Monocytes Absolute Auto 800 /uL (0-900); Monocytes Percent Auto 7.8 % (3-14); Neutrophils Absolute Auto 8200 /uL (1500-7000); Neutrophils Percent Auto 80.9 % (50-75); Platelet Count 254 X10^3/uL (150-400); Red Blood Cell Count 3.78 X10^6/uL (4.5-5.9); Red Cell Distribution Width 13.8 % (11.6-14.8); White Blood Cell Count 10.1 X10^3/uL (4.5-11.0)
[2023-12-12] MEDS: FUROSEMIDE 40 MG TABLET PO (09:20)
[2023-12-12] MEDS: ASPIRIN EC 81 MG TABLET PO (09:21)
[2023-12-12] MEDS: TAMSULOSIN 0.4 MG CAPSULE PO (09:21)
[2023-12-12] MEDS: LOSARTAN 50 MG TABLET PO ×2 (09:21→20:59)
[2023-12-12] MEDS: AMLODIPINE 5 MG TABLET 10 MG PO (09:21)
[2023-12-12] MEDS: dilTIAZem CD 180 MG CAP PO (09:21)
[2023-12-12] MEDS: APIXABAN 5 MG TABLET PO ×2 (09:22→20:59)
--- NOTE | 2023-12-12 10:14 | P.PN_ITS ---
Subjective Subjective Interval history: He is better today but still somewhat confused. He would poor night sleep last night. He is able to eat this morning and is at the bedside. He denies any pain or dyspnea. Had a rapid response yesterday, December 10. He had a generalized seizure. He responded to Keppra and is now on Keppra. Wellbutrin was stopped. A CT of the brain was negative for acute findings. An MRI on December 07 was unremarkable. He has no history of seizures. His does voice concern about seizures escalating his already progressing dementia. Exam Vital Signs (past 8 hours): - 12/12/23 02:30 12/12/23 02:30 12/12/23 03:00 Temperature Pulse Rate 80 81 Respiratory Rate 30 H 23 Blood Pressure 131/85 Pulse Oximetry 96 96 Oxygen Delivery Method 12/12/23 03:01 12/12/23 03:01 12/12/23 03:30 Temperature Pulse Rate 81 Respiratory Rate 23 Blood Pressure 167/79 H 142/80 H Pulse Oximetry 96 Oxygen Delivery Method 12/12/23 03:30 12/12/23 04:00 12/12/23 04:01 Temperature Pulse Rate 81 92 H 84 Respiratory Rate 28 H 22 26 H Blood Pressure Pulse Oximetry 97 93 92 Oxygen Delivery Method 12/12/23 04:01 12/12/23 04:30 12/12/23 04:30 Temperature Pulse Rate 89 Respiratory Rate 21 Blood Pressure 155/78 H 169/85 H Pulse Oximetry 96 Oxygen Delivery Method 12/12/23 05:00 12/12/23 05:00 12/12/23 05:30 Temperature Pulse Rate 88 83 Respiratory Rate 22 26 H Blood Pressure 154/73 H Pulse Oximetry 93 97 Oxygen Delivery Method 12/12/23 05:30 12/12/23 06:00 12/12/23 06:00 Temperature Pulse Rate 82 Respiratory Rate 27 H Blood Pressure 146/79 H 149/75 H Pulse Oximetry 97 Oxygen Delivery Method 12/12/23 06:30 12/12/23 06:30 12/12/23 07:00 Temperature Pulse Rate 79 77 Respiratory Rate 22 16 Blood Pressure 161/73 H Pulse Oximetry 97 97 Oxygen Delivery Method 12/12/23 07:00 12/12/23 07:30 12/12/23 07:30 Temperature Pulse Rate 72 Respiratory Rate 20 Blood Pressure 146/78 H 139/70 Pulse Oximetry 98 Oxygen Delivery Method 12/12/23 08:00 12/12/23 08:00 12/12/23 08:00 Temperature 98.4 F Pulse Rate 79 Respiratory Rate 24 Blood Pressure 132/72 Pulse Oximetry 93 Oxygen Delivery Method 12/12/23 08:00 12/12/23 08:30 12/12/23 08:30 Temperature Pulse Rate 81 Respiratory Rate 24 Blood Pressure 146/82 H Pulse Oximetry 96 Oxygen Delivery Method Room Air 12/12/23 09:00 12/12/23 09:00 12/12/23 09:21 Temperature Pulse Rate 76 76 Respiratory Rate 16 Blood Pressure 156/80 H 156/80 H Pulse Oximetry 98 Oxygen Delivery Method Oxygen Delivery Method Room Air Oxygen Flow Rate 2 Narrative Exam Narrative: NAD, alert and oriented to person. Slow speech. Slow to answer. Lungs are clear, normal rate and effort. Heart is regular, no murmur gallop or rub. Abdomen is soft, non distended. Extremities are free of edema. Moves arms and legs without difficulty, no facial droop. Objective Labs 12/12/23 06:00 12/11/23 13:09 Labs: Laboratory Results - last 24 hr 12/11/23 12/11/23 12/11/23 13:09 13:30 15:10 WBC 15.9 H D RBC 4.31 L Hgb 13.5 Hct 40.8 L MCV 94.7 MCH 31.4 MCHC 33.2 RDW 13.9 Plt Count 316 Neut % (Auto) 80.0 H Lymph % (Auto) 9.3 L [place] % (Auto) 8.2 Eos % (Auto) 1.6 L Baso % (Auto) 0.9 Neut # (Auto) 23949 H Lymph # (Auto) 1500 [place] # (Auto) 1300 H Eos # (Auto) 200 Baso # (Auto) 100 Sodium 131 L Potassium 4.4 Chloride 97 L Carbon Dioxide 13 L BUN 18 Creatinine 1.14 Estimated GFR > 60 BUN/Creatinine Ratio 15.8 Glucose 139 H Lactate 10.1 H* 1.9 Calcium 9.2 Magnesium 1.8 Total Bilirubin 1.5 H AST 51 ALT 33 Alkaline Phosphatase 56 Troponin I 0.092 H NT-Pro-B Natriuret Pep 5700 H Total Protein 8.1 Albumin 4.7 Globulin 3.4 Albumin/Globulin Ratio 1.4 Prolactin 27.0 H Nasal Screen MRSA (PCR) Not detected 12/12/23 06:00 WBC 10.1 RBC 3.78 L Hgb 12.1 L Hct 35.2 L MCV 93.1 MCH 31.9 MCHC 34.3 RDW 13.8 Plt Count 254 Neut % (Auto) 80.9 H Lymph % (Auto) 7.6 L [place] % (Auto) 7.8 Eos % (Auto) 3.2 Baso % (Auto) 0.5 Neut # (Auto) 8200 H Lymph # (Auto) 800 L [place] # (Auto) 800 Eos # (Auto) 300 Baso # (Auto) 100 Sodium Potassium Chloride Carbon Dioxide BUN Creatinine Estimated GFR BUN/Creatinine Ratio Glucose Lactate Calcium Magnesium Total Bilirubin AST ALT Alkaline Phosphatase Troponin I NT-Pro-B Natriuret Pep Total Protein Albumin Globulin Albumin/Globulin Ratio Prolactin Nasal Screen MRSA (PCR) PFSH Medical History Bladder neck contracture Hematuria Lower urinary tract symptoms (LUTS) Erectile dysfunction BPH loc w/o ur obs/LUTS CVA (cerebral vascular accident) Peripheral vascular disease Atherosclerosis History of stent insertion of renal artery Renal artery stenosis BPH (benign prostatic hyperplasia) Hypertension Hyperlipidemia Surgical History H/O vasectomy H/O hernia repair Hx of appendectomy S/P TURP Family History Father CVA (cerebral vascular accident) Mother COPD (chronic obstructive pulmonary disease) Sister Adopted Social History household members: spouse lives independently: Yes Smoking Status: Former smoker alcohol intake: former Assessment & Plan Assessment & Plan narrative: 1. New onset generalized seizure, not present on admission. Likely due to wellbutrin lowering siezure threshold. This has been stopped. Head CT negative. 2. 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 Has outpatient f/up with neurology coming up. 3. Possible TIA, questionable in light of above and negative imaging studies or focal deficits evident. 4. PFO, present on admission and active. 5. Significant right carotid artery stenosis, present on admission and active. 6. Chronic anticoagulation, present on admission and active. 7. Chronic kidney disease, present on admission and active. 8. Hypertension, present on admission and active. 9. Hyperlipidemia, present on admission and active. 10. Right leg edema, chronic. 11. Urinary retention. Had 500cc after straight cath, then 600cc in bladder after lr replaced. Continue flomax. Plan: -transfer out of ICU -continue keppra 1g IV BID -seizure precautions -stopped bupropion 12/10. -telemetry -placed lr due to urinary retention, will need to f/up with [facility] as outpatient -encourage physical therapy -continue eliquis BID -follow neurologic status closely. -evaluations with Physical, Occupational therapy Estimated date of discharge is likely December 13 or . He needs to progress with physical therapy and show resolution of neurologic symptoms while on Keppra. -DNR, confirmed with his . Proxy decision maker is .
--- NOTE | 2023-12-12 10:32 | OT.IPNOTE ---
Discussed pt in rounds. Pt is not currently ready for therapy services. Will hold at this time.
--- NOTE | 2023-12-12 11:55 | ST.IPDYTX ---
Visit Care Team Role Provider Type Brigette Ceron MD Primary Care Provider Physician Specialty: Internal Medicine Address: [place], [address] Email: Polly Monroe DO Emergency Provider Physician Referring Provider Specialty: Emergency Medicine Address: [address] [place] [address], [id number] Email: [email or web address] MD Admit Provider Physician Attending Provider Specialty: Internal Medicine Address: [address] [place] [address], [id number] Email: [email or web address] REPRESENTATIVE [employer] Dysphagia Treatment SALES REPRESENTATIVE [employer] Dysphagia Treatment Start: 12/12/23 11:17 Freq: Status: Active Protocol: Document 12/12/23 11:18 CG (Rec: 12/12/23 11:21 CG [id number]) Dysphagia Treatment Session Time Visit Start Time 11:15 Visit Stop Time 11:45 Total Visit Minutes 30 Visit Information Visit Number 2 Setting Assessment Location Acute Care Visit Type Note Type Treatment Note Patient Information Subjective Observations Nursing reports that the pt took all of his medications this morning whole with water (multiple pills at one time) with no difficulty. Additionally, nursing reports that he ate his breakfast tray of hash browns and sausages without difficulty. His mentation appears to continue waxing and waning as he is oriented to name and generally to situation but not necessarily to place or time. Pt has reportedly been intermittently agitated and confused. Upon ST entry to room, pt was seated upright in bedside chair. Today he appears oriented, correctly stating the season, year, and place. However, he stated that he was confused as to why he was here. Explained to the pt that he recently had a seizure and was being monitored for safety before returning home. Treatment Liquids Trialed Thin (IDDSI 0) Solids Trialed Soft & Bite-sized (IDDSI 6), Regular (IDDSI 7) Treatment Activities Therapeutic PO trials of meri cracker and water. Pt and family education re safe swallowing strategies for home . The IDDSI Framework Protocol: IDDSI.1 Assessment Patient Response to Treatment Good Assessment of Improvement For trials meri cracker, pt demonstrated good oral acceptance and containment and very mildly weakened (yet effective) mastication. He independently utilized liquid wash to help clear bolus. After one swallow, significant oral residue remained on the lingual surface. Pt was cued to re-swallow, which resulted in clearance of the oral cavity. During trials of serial sips of water via straw , pt demonstrated good suction , bolus control, and timely swallow initiation. No overt s /sx aspiration/penetration observed, though silent aspiration cannot be ruled out without an instrumental assessment. Pt denies any difficulty with swallowing. Pt's states that the only difficulty he had was when he was drinking coffee when his seizure began, causing him to choke. Seizures now being managed via medication. Provided pt/caregiver education re cutting pt's food into small pieces d/t pt dx of dementia putting him at higher risk for impulsive intake rate. Additionally, discussed upright positioning during and for 30 minutes after meals to reduce risk of aspirating refluxed material. Provided education re importance of oral care for infection control with regard to aspiration pneumonia. Pt's verbalized understanding of all strategies suggested. Due to pt's continued confusion, pt may benefit from home health ST to assess home environment and suggest environmental modifications as needed to increase orientation and decrease the impact of dementia. With regards to the pt's swallow status, are no significant concerns for aspiration/ penetration at this time, though pt's mental status does put him at increased risk of dysphagia-related injury. Recommendations Recommendations Continue Current Diet Liquids Order Thin (IDDSI 0) Diet Order Regular (IDDSI 7) Medication Recommendations As Tolerated Additional Dietary Needs Chopped Food Aspiration Precautions Additional Precautions Reduce distractions Treatment Plan Placement Recommendation after Discharge [facility],Home with Home Health Appropriate for Continued Therapy No
--- NOTE | 2023-12-12 13:53 | CM.DPNOTE ---
Addendum entered by MILY Gordon 12/12/23 15:20: SUBSTATION WIREMAN met with pt and spouse in room. Spouse reports did not finish LTC/Medicaid jaime yet. Preference remains home with HH at this time, agreeable to adding speech to order. Deny other CM needs at this time. SL Original Note: DCP Note SUBSTATION WIREMAN reviewed EMR. Pt discussed in morning multidisciplinary rounds. Provider wants to hold PT/OT for the day to re-evaluate for post seizure needs. Hospitalist anticipates From MANUFACTURING QUALITY ENGINEER, inquired about adding speech to HH order. SUBSTATION WIREMAN updated Leslie at [facility] . Leslie reports they can add speech to the HH order no problem. From RN, pt eager to go home. Spouse briefly stepped out but would probably be the more appropriate person to chat with about DCP needs. Plan: Anticipate home with [facility] when stable, CM team will inquire about LTC Medicaid ja[place] when able. CM team will follow closely if new PT/OT recs after new eval. MILY Gordon
--- NOTE | 2023-12-12 18:30 | PC.NURSE ---
pt has been on room air all shift; his was at bedside most of the day and spoke w/ Dr Strong; pt was saline locked w/ adequate PO intake; at 1809, he had a 9 beat run of v-tach; VSS, pt denies any complaints; pt is confused at baseline and is mostly calm, but he has had a couple of brief episodes of being short tempered
[2023-12-12] MEDS: ATORVASTATIN 20 MG TABLET PO (20:59)
[2023-12-12] MEDS: ATORVASTATIN 20 MG TABLET 80 MG PO (20:59)
[2023-12-12] MEDS: SODIUM CHLORIDE 0.9% FLUSH 10 ML IV (21:01)
[2023-12-13] VITALS (15 sets, daily range): BP systolic 123–167; BP diastolic 57–75; PULSE 63–91; RESP 21–45; TEMP 36.3–36.7; O2SAT 95–98
[2023-12-13] MEDS: levETIRAcetam 1,000 MG in SODIUM CHLORIDE 0.9% 100 ML 440 MG IV (01:00)
[2023-12-13] MEDS: SODIUM CHLORIDE 0.9% FLUSH 10 ML IV ×3 (01:01→21:03)
[2023-12-13 04:55] LABS: Add Manual Diff / Slide Review NO; Basophils Absolute Auto 100 /uL (0-100); Basophils Percent Auto 0.7 % (0-2); Eosinophils Absolute Auto 600 /uL (0-450); Eosinophils Percent Auto 5.9 % (2-4); Hematocrit 34.8 % (41-53); Hemoglobin 11.9 g/dL (13.5-17.5); Lymphocytes Absolute Auto 1000 /uL (1100-4500); Lymphocytes Percent Auto 10.3 % (25-40); Mean Corpuscular HGB Conc 34.1 % (30-36); Mean Corpuscular Hemoglobin 31.8 PG (26-34); Mean Corpuscular Volume 93.3 fL (80-100); Monocytes Absolute Auto 800 /uL (0-900); Monocytes Percent Auto 8.1 % (3-14); Neutrophils Absolute Auto 7400 /uL (1500-7000); Platelet Count 266 X10^3/uL (150-400); Red Blood Cell Count 3.73 X10^6/uL (4.5-5.9); Red Cell Distribution Width 13.6 % (11.6-14.8); White Blood Cell Count 9.9 X10^3/uL (4.5-11.0)
[2023-12-13] MEDS: dilTIAZem CD 180 MG CAP PO (08:55)
[2023-12-13] MEDS: AMLODIPINE 5 MG TABLET 10 MG PO (08:55)
[2023-12-13] MEDS: FUROSEMIDE 40 MG TABLET PO (08:55)
[2023-12-13] MEDS: APIXABAN 5 MG TABLET PO ×2 (08:55→21:03)
[2023-12-13] MEDS: TAMSULOSIN 0.4 MG CAPSULE PO (08:55)
[2023-12-13] MEDS: LOSARTAN 50 MG TABLET PO ×2 (08:55→21:03)
[2023-12-13] MEDS: ASPIRIN EC 81 MG TABLET PO (08:55)
--- NOTE | 2023-12-13 10:24 | OT.IP.TRT ---
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 (12/08/23) Cerebral infarction, unspecified (12/08/23) Occupational Therapy Treatment Note M2 OT-IP Current Condition Start: 12/09/23 14:24 Freq: Status: Active Protocol: Document 12/09/23 13:35 [facility] (Rec: 12/09/23 14:56 [facility] [id number]) Occupational Therapy Current Condition Current Condition Evaluation Date 12/09/23 Treatment Diagnosis Severe depression, possible CVA Diagnosis Onset Date 12/08/23 M3 OT- IP Subjective and Pain Start: 12/09/23 14:24 Freq: Status: Active Protocol: Document 12/13/23 10:46 [facility] (Rec: 12/13/23 10:57 [facility] [id number]) OT- Subjective Occupational Therapy Visit Type Type Treatment Note Visit Start Time 10:20 Visit Stop Time 10:44 Occupational Therapy Visit Comments Patient Comments Pt's in the room and agreed to do caregiver training. Patient/Caregiver Goals To go home. OT Pain Assessment Pain When Pain Assessed At Rest Pain Present Pain Present Denied Pain M4 OT- IP ADL's Start: 12/09/23 14:24 Freq: Status: Active Protocol: Document 12/13/23 10:46 [facility] (Rec: 12/13/23 10:57 [facility] [id number]) OT ADL-Grooming General Evaluation Grooming Ability Minimal Assistance Comments OT Grooming Comments KAVITA for completeness to get the back on his hair. OT ADL-Oral Care Comments Oral Care Comments Not performed. OT ADL-Dressing Comments OT Dressing Comments Not performed but pt will continue to need assist at this time especially for the catheter management needs. M5 OT- IP IADL's Start: 12/09/23 14:24 Freq: Status: Active Protocol: Document 12/09/23 13:35 [facility] (Rec: 12/09/23 14:56 [facility] [id number]) OT-Instrumental Activities of Daily Living Deficits IADL Deficits Identified Deficits Home Safety Awareness Awareness of Need for Assistance at Home Good Awareness Ability to Problem Solve Emergency Able to Problem Solve Situations Medication Management Medication Management Caregiver Administers Money Management Money Management Caregiver Provides Assistance Meal Preparation Meal Preparation Caregiver Provides Assist White Work Cleaner White Work Cleaner Caregiver Provides Assist M6 OT- IP Functional Cognition Start: 12/09/23 14:24 Freq: Status: Active Protocol: Document 12/13/23 10:46 [facility] (Rec: 12/13/23 10:57 [facility] [id number]) Cognitive Factors Limiting Selfcare Function Cognitive Ability Level of Alertness Alert,Confusional State Attention Span Ability Capable of Focused Attention, Unable to Focus Ability to Follow Commands Able to Follow One Step Commands with Increased Time, Able to Follow One Step Commands with Repetition Cognitive Comments Cognitive Assessment Comments Pt needing vc for safety awareness, initiation, and for completeness of tasks. At this time due to his poor safety awareness, pt will benefit from 28/02 assist/ supervision at home. Pt needing lots of cues for initiation as pt keeps repeating, I can not do that. M7 OT- IP Mobility and Balance Start: 12/09/23 14:24 Freq: Status: Active Protocol: Document 12/13/23 10:46 [facility] (Rec: 12/13/23 10:57 [facility] [id number]) OT- Bed Mobility Assessment Supine to Sit Supine to Sit Assist Contact Guard Assistance Sit to Supine Sit to Supine Assist Standby Assistance OT-Transfer Assessment Sit to and From Stand Sit to and from Stand Contact Guard Assistance Transfers Transfer Ability Contact Guard Assistance Technique Transfer Destination Bed Transfer Technique Stand Step Pivot Devices Transfer Assistive Devices Gait Belt,Front Wheeled Walker Comments Mobility Comments CGA with FWW , however would beneficial to try the SPC as pt is use to it at home. Pt's able to jacqueline/doff the gait belt and assist pt with the FWW at this time with good safety. OT- Balance Assessment Sitting Balance and Reactions Static Sitting Balance Ability Good Dynamic Sitting Balance Ability Good Standing Balance and Reactions Static Standing Balance Ability Good Dynamic Standing Balance Ability Fair M8 OT- IP Objective Assessments Start: 12/09/23 14:24 Freq: Status: Active Protocol: Document 12/09/23 13:35 [facility] (Rec: 12/09/23 14:56 [facility] [id number]) OT Gross Range of Motion Upper Extremity Range of Motion ROM Impairments Decreased at end range of motion for his shoulders. OT Strength Comments Strength Comments Pt's 4-/5 to 4+/5 from proximal to distal. OT- Coordination Assessment Upper Extremity Finger to Nose Test Within Functional Limits M9 OT- IP Assessment and Plan Start: 12/09/23 14:24 Freq: Status: Active Protocol: Document 12/13/23 10:46 [facility] (Rec: 12/13/23 10:57 [facility] [id number]) OT Summary Assessment and Plan Potential Rehabilitation Potential Good Analytic Complexity at Evaluation Moderate Summary OT Impairments Range of Motion,Strength, Balance,Functional Cognition, Functional Mobility,Dressing, Toileting,Bathing,Toilet Transfers,Shower Transfers, Activity Tolerance Assessment Summary Able to do caregiver training with pt's and she feel capable to assist pt at home. However pt will need 24/7 assist due to decreased safety awareness and impulsivity. Pt's however open to skilled rehab as a back up plan. Continue to do caregiver training with pt's . Therefore suggest home with 24/7 assist and HH versus skilled rehab pending progress and caregiver training. Goals Self-Feeding Goal Independent Grooming Goal Standby Assistance Dressing Goal Standby Assistance Toileting Goal Standby Assistance Bathing Goal Standby Assistance Toilet Transfer Goal Standby Assistance Shower Transfer Goal Standby Assistance Days to Meet Goals 7 Frequency of Treatment Frequency Of Treatment Once a Day Treatment Plan OT Treatment Plan ADL Training,Functional Cognition Training,Functional Mobility,Patient/Family Education,Discharge Planning Other Treatment Recommendations and Next shower Treatment Focus Discharge Recommendations OT Discharge Recommendations Home with 24/7 Assist Available,Home Health,SNF Rehab,Home vs SNF Home Equipment Needs shower chair Transportation Needs at Discharge Private Vehicle,Wheelchair/ Cabulance
--- NOTE | 2023-12-13 10:54 | DIET.CONS2 ---
Dietary Inpatient Consultation Note Admission Date: 12/08/2023 14:25 78 y M admitted for concern for TIA v CVA, pt had seizure during admission. Recent hospitalization at [facility] for possible stroke. Severe depression and likely new onset of dementia noted in chart review. PMH CKD. Nutrition screened for LOS day 5. No significant weight loss noted. Recorded PO intakes 50%. Will coordinate with unit host for provision of protein/energy supplement 1x/d in addition to meals to ensure adequate intakes. Will continue to monitor po intakes. Diet: 12/08/23 Dinner Heart Healthy Diet Diet Modifications: Nutrition Percent Meal Consumed 50% 12/13/23 09:42 Percent Meal Consumed 50% 12/12/23 18:00 Electronically Signed by: Ericka Andres 12/13/23 10:54 Clinical Dietitian [address] [address]
--- NOTE | 2023-12-13 14:01 | CM.DPNOTE ---
DCP Note LABOR AND DELIVERY NURSE reviewed EMR. Per provider, pt doing better, potential to dc home with HH tomorrow vs SNF. LABOR AND DELIVERY NURSE placed new PT eval order. Per RN report, pt was anxious this morning. Per OT eval, rec SNF vs home with HH. new PT eval pending. LABOR AND DELIVERY NURSE met with pt and spouse in room. Reviewed therapy recs, different options for SNF placement, and insurance benefit information. Reviewed SNF options with Medicare choice facility paper. After reviewing different available options, pt and spouse decided their preference would be to dc home with HH. Agree to add LABOR AND DELIVERY NURSE to order for LTC planning. Deny other CM needs. Spouse/pt report pt would likely be better cognitively and emotionally at home rather than a rehab facility. LABOR AND DELIVERY NURSE updated Leslie at [facility] via email with dc timeline/requested to add LABOR AND DELIVERY NURSE to plan. Plan: potential dc home tomorrow with spouse support/[facility] to follow for RN/PT/OT/LABOR AND DELIVERY NURSE/Speech. CM team will continue to follow closely. MILY Gordon
--- NOTE | 2023-12-13 14:22 | PM.PN.1 ---
Subjective Subjective Interval history: No pain or dyspnea, quite sleepy today. Exam Vital Signs (past 8 hours): - 12/13/23 07:06 12/13/23 07:30 12/13/23 07:49 Temperature Pulse Rate 82 72 67 Respiratory Rate 32 H 23 26 H Blood Pressure Pulse Oximetry 95 95 98 Oxygen Delivery Method 12/13/23 07:49 12/13/23 07:57 12/13/23 08:00 Temperature 97.4 F L Pulse Rate Respiratory Rate Blood Pressure 151/75 H Pulse Oximetry Oxygen Delivery Method Room Air 12/13/23 10:00 12/13/23 10:30 12/13/23 11:00 Temperature 97.8 F Pulse Rate 73 91 H 91 H Respiratory Rate 21 45 H 45 H Blood Pressure 167/64 H Pulse Oximetry 98 Oxygen Delivery Method Oxygen Delivery Method Room Air Oxygen Flow Rate 0 Narrative Exam Narrative: NAD, alert and oriented to person. Slow speech. Slow to answer. Lungs are clear, normal rate and effort. Heart is regular, no murmur gallop or rub. Abdomen is soft, non distended. Extremities are free of edema. Moves arms and legs without difficulty, no facial droop. Objective Labs 12/13/23 04:09 12/11/23 13:09 Labs: Laboratory Results - last 24 hr 12/13/23 04:09 WBC 9.9 RBC 3.73 L Hgb 11.9 L Hct 34.8 L MCV 93.3 MCH 31.8 MCHC 34.1 RDW 13.6 Plt Count 266 Neut % (Auto) 75.0 Lymph % (Auto) 10.3 L Stafford % (Auto) 8.1 Eos % (Auto) 5.9 H Baso % (Auto) 0.7 Neut # (Auto) 7400 H Lymph # (Auto) 1000 L Stafford # (Auto) 800 Eos # (Auto) 600 H Baso # (Auto) 100 PFSH Medical History Bladder neck contracture Hematuria Lower urinary tract symptoms (LUTS) Erectile dysfunction BPH loc w/o ur obs/LUTS CVA (cerebral vascular accident) Peripheral vascular disease Atherosclerosis History of stent insertion of renal artery Renal artery stenosis BPH (benign prostatic hyperplasia) Hypertension Hyperlipidemia Surgical History H/O vasectomy H/O hernia repair Hx of appendectomy S/P TURP Family History Father CVA (cerebral vascular accident) Mother COPD (chronic obstructive pulmonary disease) Sister Adopted Social History household members: spouse lives independently: Yes Smoking Status: Former smoker alcohol intake: former Assessment & Plan Assessment & Plan narrative: 1. New onset generalized seizure, not present on admission. Likely due to wellbutrin lowering siezure threshold. This has been stopped. Head CT negative. 2. 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 Has outpatient f/up with neurology coming up. 3. Possible TIA, questionable in light of above and negative imaging studies or focal deficits evident. 4. PFO, present on admission and active. 5. Significant right carotid artery stenosis, present on admission and active. 6. Chronic anticoagulation, present on admission and active. 7. Chronic kidney disease, present on admission and active. 8. Hypertension, present on admission and active. 9. Hyperlipidemia, present on admission and active. 10. Right leg edema, chronic. 11. Urinary retention. Had 500cc after straight cath, then 600cc in bladder after lr replaced. Continue flomax. Plan: -continued keppra 1g IV BID, reduce to 500 mg BID today orally due to sleepiness today. -seizure precautions -stopped bupropion 12/10. -telemetry -placed lr due to urinary retention, will need to f/up with [facility] as outpatient -encourage physical therapy -continue eliquis BID -follow neurologic status closely. -evaluations with Physical, Occupational therapy re-ordered today. Estimated date of discharge is likely December 13 or . He needs to progress with physical therapy and show resolution of neurologic symptoms while on Keppra. -DNR, confirmed with his . Proxy decision maker is .
--- NOTE | 2023-12-13 14:36 | PT.IIE ---
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 (12/08/23) Cerebral infarction, unspecified (12/08/23) Surgical History (Last Reviewed 12/08/23 @ 15:04 by Ken Strong MD) H/O hernia repair H/O vasectomy Hx of appendectomy S/P TURP Medical History (Last Reviewed 12/08/23 @ 15:04 by Ken Strong MD) Atherosclerosis Bladder neck contracture BPH (benign prostatic hyperplasia) BPH loc w/o ur obs/LUTS CVA (cerebral vascular accident) Erectile dysfunction Hematuria History of stent insertion of renal artery Hyperlipidemia Hypertension Lower urinary tract symptoms (LUTS) Peripheral vascular disease Renal artery stenosis Physical Therapy Inpatient Evaluation/Re-Eval M1 PT/OT-IP Prior Functional Status Start: 12/08/23 16:28 Freq: NEEDED Status: Active Protocol: Document 12/13/23 14:36 [facility] (Rec: 12/13/23 16:39 [facility] [id number]) Medical Review Prior Functional Status Medical History Reviewed Yes Communication pt has cognitive issues and unable to consistently answer questions Mobility and Gait pt was modified independent with ambulation without AD but occasionally uses a SPC Prior Functional Level (Other details) pt with confusion and unable to clarify home set up and PLOF info taken from last eval . Social History Household Members spouse Living Arrangements House Number of Floors (Floors) Two Floors Number of Stairs To Enter/Railing? 2 steps without rails to enter 13 steps 1 rail to get to bedroom level Home Environment Standard Height Toilet,Tub/ Shower Home Equipment Straight Cane,Hand Held Shower M1 PT/OT-IP Prior Functional Status Start: 12/09/23 14:24 Freq: NEEDED Status: Active Protocol: Document 12/09/23 13:35 [facility] (Rec: 12/09/23 14:56 [facility] [id number]) Medical Review Prior Functional Status Medical History Reviewed Yes Communication Unsure baseline diet and provides some answers to PT's questions but she did not know all answers to questions, it does not appear that he had a special diet at baseline Mobility and Gait reports that pt has a cane and used or did not use it at baseline, was mobile, she did the driving and he did his ADLs Activities of Daily Living and IADL's See above Social History Household Members spouse Living Arrangements House Number of Stairs To Enter/Railing? 2 steps no rails to get in and 13 steps with rail to get upstair to the bedroom. Home Environment Standard Height Toilet,Tub/ Shower Home Equipment Straight Cane,Hand Held Shower M2 PT-IP Current Condition Start: 12/08/23 16:28 Freq: NEEDED Status: Active Protocol: Document 12/13/23 14:36 [facility] (Rec: 12/13/23 16:39 [facility] [id number]) Physical Therapy Current Condition Current Condition Evaluation Date 12/13/23 Treatment Diagnosis seizure; TIA; difficulty in walking Onset Date 12/08/23 M3 PT-IP Subjective Start: 12/08/23 16:28 Freq: NEEDED Status: Active Protocol: Document 12/13/23 14:36 [facility] (Rec: 12/13/23 16:39 [facility] [id number]) Subjective Physical Therapy Visit Type Type Initial Evaluation Visit Start Time 14:36 Visit Stop Time 15:00 Number of VETERIN[employer] POULTRY INSPECTOR Visits 0 Physical Therapy Visit Comments Patient Comments with confusion but agreed to do PT M4 PT-IP Mobility and Gait Start: 12/08/23 16:28 Freq: NEEDED Status: Active Protocol: Document 12/13/23 14:36 [facility] (Rec: 12/13/23 16:39 [facility] [id number]) PT-Transfer Assessment Sit to and From Stand Sit to and from Stand Minimal Assistance,1 Person Assistance,Use of Upper Extremities Equipment Transfer Assistive Device Gait Belt,Front Wheeled Walker Orthotic/Prosthetic Devices or Brace: No Comments Mobility Comments pt sitting on the chair. agreed to do PT. obtained PLOF and home set up but pt unable to provide info. pt was admitted 12/08/23 for TIA and PT eval completed 12/08/23 . pt was d/c'd 12/12/23 from PT after pt had a seizure . New PT eval order received today. pt completed sit to stand from chair min A and ambulation in room using FWW ~ 30 ft CGA to min A and max cues provided. pt with shuffling gait and tends to have FWW too far forward. pt requested to sit back on chair and stated that he feels weak. pt refused further activities and just wants to rest on the chair. positioned pt on the chair. call light and table placed within reach. Gait Assessment Gait Gait Assistance Required: Contact Guard Assist,Minimum Assistance,1 Person Assist Distance (Feet) 30 Able to Maintain Weight Bearing Status Yes During Gait Assistive Devices Assistive Device Gait Belt,Front Wheeled Walker Orthotic/Prosthetic Devices or Brace: No Gait Deviations General Gait Pattern Ataxic,Decreased Stride Length ,Decreased Feet Clearance,Step -to Gait Factors Limiting Gait Function Factors Limiting Gait Function Decreased Activity Tolerance, Decreased Strength,Difficulty Following Directions,Limited Range of Motion,Pain,Poor Balance,Poor Safety Awareness PT-Balance Assessment Sitting Balance and Reactions Static Sitting Balance Ability Good Dynamic Sitting Balance Ability Fair Standing Balance and Reactions Static Standing Balance Ability Fair Dynamic Standing Balance Ability Fair Device Used FWW M5 PT-IP Objective Assessments Start: 12/08/23 16:28 Freq: NEEDED Status: Active Protocol: Document 12/13/23 14:36 [facility] (Rec: 12/13/23 16:39 [facility] [id number]) Orientation Orientation/Cognition Level of Alertness Confusional State Orientation Name Language Function Ability Hard of Hearing Safety Awareness Decreased Safety Awareness Memory Description Short Term Impaired,Custodial Impaired Gross Range of Motion Lower Extremity ROM Assessment Within Functional Limits Strength Comments Strength Comments RLE: 4/5 LLE: 4-/5 Muscle Tone Muscle Tone WNL Yes M6 PT-IP Treatment Start: 12/08/23 16:28 Freq: NEEDED Status: Active Protocol: Document 12/13/23 14:36 [facility] (Rec: 12/13/23 16:39 [facility] [id number]) Physical Therapy Treatment Education Education Provided Safety M7 PT-IP Assessment and Plan Start: 12/08/23 16:28 Freq: NEEDED Status: Active Protocol: Document 12/13/23 14:36 [facility] (Rec: 12/13/23 16:39 AB [id number]) PT Summary Assessment and Plan Potential Rehabilitation Potential Fair Status of Condition at Evaluation Evolving Summary Impairments Pain,ROM,Strength,Balance, Coordination,Sensation,Tone, Cognition,Bed Mobility, Transfers,Gait,Activity Tolerance Assessment Summary pt is an 78 y/o M who was admitted 12/08/23 for TIA. pt had a seizure yesterday and was d/c'd from PT. PT eval received today. pt requiring min A for sit to stand and CGA to min A for ambulation using FWW and has decrease activity tolerance affecting mobility. pt will require / assist and may benefit from SNF rehab. will continue to assess progress. Goals Bed Mobility Goal Standby Assistance Transfer Goal Standby Assistance,Front Wheeled Walker Gait Goal Standby Assistance,Front Wheel Walker Gait Distance 100 Other Goals improve bed mobility, transfers and ambulation using LRAD ~ 150 ft mod I up/down 2 steps without AD/ using SPC SBA up/down 13 steps 1 rail + SPC SBA Days to Meet Goals 10 Frequency of Treatment Frequency Of Treatment Once a Day Treatment Plan Physical Therapy Treatment Plan Bed Mobility Training,Transfer Training,Gait Training, Therapeutic Exercise,Balance Retraining,Discharge Planning, Hot or Cold Pack,Neuromuscular Re-ed,Coordination Retraining Precautions Other Precautions falls; seizure Recommendations To Nursing Amount of Assist Needed 1 Person Assist Discharge Recommendations PT Discharge Recommendations Home with 28/02 Assist Available,Home Health,SNF Rehab,Home vs SNF Equipment Needed for Home Before FWW if not safe with SPC Discharge Transportation Needs at Discharge Private Vehicle,Wheelchair/ Cabulance
[2023-12-13] MEDS: ATORVASTATIN 20 MG TABLET PO (21:03)
[2023-12-13] MEDS: levETIRAcetam 250 MG TABLET 500 MG PO (21:03)
[2023-12-13] MEDS: QUETIAPINE 25 MG TABLET PO (22:05)
[2023-12-14 00:39] VITALS: BP 146/75; PULSE 74; RESP 19; TEMP 36.8; O2SAT 95
[2023-12-14 05:20] VITALS: BP 126/65; PULSE 76; RESP 20; TEMP 36.6; O2SAT 94
[2023-12-14 05:35] LABS: Add Manual Diff / Slide Review NO; Basophils Absolute Auto 100 /uL (0-100); Eosinophils Absolute Auto 600 /uL (0-450); Eosinophils Percent Auto 5.8 % (2-4); Hematocrit 34.1 % (41-53); Hemoglobin 11.8 g/dL (13.5-17.5); Lymphocytes Absolute Auto 1300 /uL (1100-4500); Lymphocytes Percent Auto 12.3 % (25-40); Mean Corpuscular HGB Conc 34.5 % (30-36); Mean Corpuscular Hemoglobin 32.1 PG (26-34); Mean Corpuscular Volume 92.9 fL (80-100); Monocytes Absolute Auto 700 /uL (0-900); Monocytes Percent Auto 7.3 % (3-14); Neutrophils Absolute Auto 7500 /uL (1500-7000); Neutrophils Percent Auto 73.6 % (50-75); Platelet Count 279 X10^3/uL (150-400); Red Blood Cell Count 3.67 X10^6/uL (4.5-5.9); White Blood Cell Count 10.2 X10^3/uL (4.5-11.0)
[2023-12-14 08:00] VITALS: BP 136/84; PULSE 76; RESP 16; TEMP 36.8; O2SAT 96
[2023-12-14] MEDS: ASPIRIN EC 81 MG TABLET PO (09:42)
[2023-12-14] MEDS: TAMSULOSIN 0.4 MG CAPSULE PO (09:42)
[2023-12-14] MEDS: dilTIAZem CD 180 MG CAP PO (09:42)
[2023-12-14 09:43] VITALS: BP 136/84; PULSE 76
[2023-12-14] MEDS: LOSARTAN 50 MG TABLET PO (09:43)
[2023-12-14] MEDS: levETIRAcetam 250 MG TABLET 500 MG PO (09:43)
[2023-12-14] MEDS: APIXABAN 5 MG TABLET PO (09:43)
[2023-12-14] MEDS: AMLODIPINE 5 MG TABLET 10 MG PO (09:44)
[2023-12-14] MEDS: FUROSEMIDE 40 MG TABLET PO (09:44)
[2023-12-14] MEDS: SODIUM CHLORIDE 0.9% FLUSH 10 ML IV (09:45)
--- NOTE | 2023-12-14 11:00 | PT.IPTN ---
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 (12/08/23) Cerebral infarction, unspecified (12/08/23) Physical Therapy Treatment Note M2 PT-IP Current Condition Start: 12/08/23 16:28 Freq: NEEDED Status: Active Protocol: Document 12/13/23 14:36 AB (Rec: 12/13/23 16:39 AB [id number]) Physical Therapy Current Condition Current Condition Evaluation Date 12/13/23 Treatment Diagnosis seizure; TIA; difficulty in walking Onset Date 12/08/23 M3 PT-IP Subjective Start: 12/08/23 16:28 Freq: NEEDED Status: Active Protocol: Document 12/14/23 11:43 TS (Rec: 12/14/23 11:50 TS [id number]) Subjective Physical Therapy Visit Type Type Treatment Note Visit Start Time 11:00 Visit Stop Time 11:24 Notes Spouse present Number of LEARNING AND DEVELOPMENT ANALYST Visits 1 Physical Therapy Visit Comments Patient Comments Pt has some confusion and word finding difficulties. Pt is agreeable to OOB mobility. M4 PT-IP Mobility and Gait Start: 12/08/23 16:28 Freq: NEEDED Status: Active Protocol: Document 12/14/23 11:43 TS (Rec: 12/14/23 11:50 TS [id number]) PT-Bed Mobility Assessment Supine to Sit Supine to Sit Minimal Assistance Scooting Scooting to Edge of Bed Contact Guard Assistance PT-Transfer Assessment Sit to and From Stand Sit to and from Stand Minimal Assistance,1 Person Assistance,Use of Upper Extremities Equipment Transfer Assistive Device Gait Belt,Front Wheeled Walker Orthotic/Prosthetic Devices or Brace: No Comments Mobility Comments Supine to sit Myles from spouse with HOB flat and SERVICE DESK AGENT. Spouse donned gait belt prior to mobility. STS from chair Myles with use of FWW. Pt ambulated ~150'CGA from spouse, had no buckling or LOB. He performed steps x8 on step stool with CGA from spouse and single rail support. Pt ambulated to chair, was left with, RN notified. Gait Assessment Gait Gait Assistance Required: Contact Guard Assist,1 Person Assist Distance (Feet) 150 Able to Maintain Weight Bearing Status Yes During Gait Assistive Devices Assistive Device Gait Belt,Front Wheeled Walker Orthotic/Prosthetic Devices or Brace: No Gait Deviations General Gait Pattern Ataxic,Decreased Stride Length ,Decreased Feet Clearance,Step -to Gait Factors Limiting Gait Function Factors Limiting Gait Function Decreased Activity Tolerance, Decreased Strength,Difficulty Following Directions,Limited Range of Motion,Pain,Poor Balance,Poor Safety Awareness Stair Climbing Assessment Evaluation Level of Assist On Stairs Contact Guard Assistance Devices Stair Climbing Assistive Devices Right Railing Technique/Endurance Stair Climbing Direction Ascend and Descend Stair Climbing Technique Step to Step Number of Steps Climbed 8 PT-Balance Assessment Sitting Balance and Reactions Static Sitting Balance Ability Good Dynamic Sitting Balance Ability Fair Standing Balance and Reactions Static Standing Balance Ability Fair Dynamic Standing Balance Ability Fair Device Used FWW M5 PT-IP Objective Assessments Start: 12/08/23 16:28 Freq: NEEDED Status: Active Protocol: Document 12/13/23 14:36 AB (Rec: 12/13/23 16:39 AB [id number]) Orientation Orientation/Cognition Level of Alertness Confusional State Orientation Name Language Function Ability Hard of Hearing Safety Awareness Decreased Safety Awareness Memory Description Short Term Impaired,Senior Living Impaired Gross Range of Motion Lower Extremity ROM Assessment Within Functional Limits Strength Comments Strength Comments RLE: 4/5 LLE: 4-/5 Muscle Tone Muscle Tone WNL Yes M6 PT-IP Treatment Start: 12/08/23 16:28 Freq: NEEDED Status: Active Protocol: Document 12/14/23 11:43 TS (Rec: 12/14/23 11:50 TS [id number]) Physical Therapy Treatment Education Education Provided Safety M7 PT-IP Assessment and Plan Start: 12/08/23 16:28 Freq: NEEDED Status: Active Protocol: Document 12/14/23 11:43 TS (Rec: 12/14/23 11:50 TS [id number]) PT Summary Assessment and Plan Potential Rehabilitation Potential Fair Summary Impairments Pain,ROM,Strength,Balance, Coordination,Sensation,Tone, Cognition,Bed Mobility, Transfers,Gait,Activity Tolerance Progress Towards Goals Progressing Toward Goals Assessment Summary Arun is making progress with his mobility. He is Myles for bed mobility with SERVICE DESK AGENT from spouse. He progressed his gait to ~150' CGA with FWW. He performed steps x8 on step stool with use of single rail and CGA from spouse. He can follow single step instructions most of the time. He has some word finding difficulties when attempting to answer questions. PT is recommending pt return home with 28/02 assist and HHPT. Goals Bed Mobility Goal Standby Assistance Transfer Goal Standby Assistance,Front Wheeled Walker Gait Goal Standby Assistance,Front Wheel Walker Gait Distance 100 Other Goals improve bed mobility, transfers and ambulation using LRAD ~ 150 ft mod I up/down 2 steps without AD/ using SPC SBA up/down 13 steps 1 rail + SPC SBA Days to Meet Goals 10 Frequency of Treatment Frequency Of Treatment Once a Day Treatment Plan Physical Therapy Treatment Plan Bed Mobility Training,Transfer Training,Gait Training, Therapeutic Exercise,Balance Retraining,Discharge Planning, Hot or Cold Pack,Neuromuscular Re-ed,Coordination Retraining Precautions Other Precautions falls; seizure Weight Bearing Status Weight Bearing Status Weight Bear as Tolerated Recommendations To Nursing Amount of Assist Needed 2 Person Assist Discharge Recommendations PT Discharge Recommendations Home with 28/02 Assist Available,Home Health Transportation Needs at Discharge Private Vehicle
[2023-12-14 12:00] VITALS: BP 128/60; PULSE 82; RESP 16; TEMP 36.2; O2SAT 97
--- NOTE | 2023-12-14 12:02 | CM.DPNOTE ---
DCP Note TREE FRUIT AND NUT FARMING SUPERVISOR reviewed EMR. Per hospitalist in morning multidisciplinary rounds, anticipate dc later today. Per RN, pt mobilized well with PT. TREE FRUIT AND NUT FARMING SUPERVISOR met with spouse and pt in room. Waiting on input from doctor but agreeable to dc home with [facility]. Deny other CM needs. TREE FRUIT AND NUT FARMING SUPERVISOR spoke with Leslie from [facility] to alert of dc today. NORMA Kaitlynn kindly agreed to scan updated F2f into chart. Plan: anticipate dc home today with spouse support. [facility] to follow for RN/PT/OT/TREE FRUIT AND NUT FARMING SUPERVISOR/speech. CM team will continue to follow clsoely. Janet Vega, MILY
--- NOTE | 2023-12-14 12:39 | PM.DS.1 ---
History of Present Illness History of Present Illness Date Patient Seen: 12/14/23 Time Patient Seen: 12:42 Chief complaint: thinks is having a stroke or TIA Narrative: Per admitting provider, The patient is an 78-year-old male with hypertension, dyslipidemia, single kidney, chronic kidney disease, and a recent diagnosis of PFO. The patient had a possible stroke a week ago and was admitted at [facility] for several days. During that workup he was found to have a PFO as well as carotid artery disease with a referral to vascular. The patient is on Eliquis and has been compliant. Today he was unable to speak or follow commands for a period of time. The patient presented to the ED where he was still not able to follow commands. Initial imaging was negative for large vessel occlusion or hemorrhage. Tele neuro recommended holding his anticoagulation for a short time and then resuming in observing his neurologic progress. He was not a candidate for thrombolytics given anticoagulation status. The patient does have a fairly tight right carotid, this may be something needs to be dealt with surgically in the next very short period of time. Additional history: Is obtained from the . The patient is not answering questions but does follow commands and move hands and feet when asked to. He does not answer questions but does make complete sentences that are articulate occasionally. There is no obvious facial droop in his speech is not slurred when he speaks. His last clear well known was 10:15 a.m.. He was sleeping in the car at the [facility]. He awoke some time later and it was unclear if he was normal neurologically. Ultimately several hours later the patient made it clear that he was having difficulty speaking and felt weak all over. He was brought to the ED. he is on chronic anticoagulation for unclear reasons. His left leg is swollen. He has been diagnosed with a PFO last week when admitted for TIA at [facility]. He is compliant with his anticoagulation. Both his time window, as well as his anticoagulation made him not a candidate for thrombolytics. CT brain was negative. CT a head and neck reveal bilateral carotid stenosis right is fairly significant at 90%. He is right handed. His left carotid is about 50% stenosed. MRI was completed with no acute findings. The patient's notes that he has suffered progressive dementia and is quite frustrated by this in his having increased frequency of anxiety episodes. She almost thought that this might be anxiety related today. Discharge Providers Provider Date of admission: 12/08/23 14:25 Discharge Date: 12/14/23 Primary care physician: Brigette Ceron MD Consults: 12/08/23 12:48 Consult to Speech Therapy Evaluate & Treat Comment: Physician Instructions: Evaluate and treat 12/08/23 15:01 Consult to Discharge Planning Routine Comment: Consult to Occupational Therapy Evaluate & Treat Comment: Physician Instructions: Evaluate and treat Consult to Physical Therapy Evaluate & Treat Comment: Physician Instructions: Evaluate and Treat Consult to Speech Therapy Evaluate & Treat Comment: Physician Instructions: Evaluate and treat 12/10/23 13:28 Consult to Physical Therapy Evaluate & Treat Comment: Safe Home Mobility Physician Instructions: FWW 12/10/23 14:16 Consult to Home Health Routine Comment: TIA/Confusion Reason For Exam: RN/PT/OT 12/13/23 10:43 Consult to Physical Therapy Evaluate & Treat Comment: Physician Instructions: Evaluate and Treat Discharge provider: Luis A Muniz DO Summary Hospital Course Discharge Diagnosis: 1. New onset generalized seizure, not present on admission. Likely due to wellbutrin lowering siezure threshold. This has been stopped. Head CT negative. 2. 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 Has outpatient f/up with neurology coming up. 3. Possible TIA, questionable in light of above and negative imaging studies or focal deficits evident. 4. PFO, present on admission and active. 5. Significant right carotid artery stenosis, present on admission and active. 6. Chronic anticoagulation, present on admission and active. 7. Chronic kidney disease, present on admission and active. 8. Hypertension, present on admission and active. 9. Hyperlipidemia, present on admission and active. 10. Right leg edema, chronic. 11. Urinary retention. Had 500cc after straight cath, then 600cc in bladder after lr replaced. Continue flomax. Hospital Course: This is an 78 year old genetleman with PMH of despression, CKD, HTN HLD with previous admission recently at an OSH for TIA where he was noted to have PFO, R carotid stenosis who presented with lethargy and difficulty speaking. Shortly after admission the patient had a 2 minute seizure. MRI did not show any mass or acute infarcts. He had no recurrence after initiation of keppra for seizure activity. He had been started on buproprion at the start of his admission for presumed depression leading to his presentation, and had had his SSRI discontinued recently for worsening symptoms. He continues to struggle with sundowning and likely progressive dementia. He has outpatient follow up with neurology scheduled. Course was further complicated by acute urinary retention. Outpatient follow up with urology is recommended. He continued to improve with PT/OT after his seizure, and was discharged home with continued improvement. Time Spent with Patient Time spent: Greater than 30 minutes Exam Vital Signs (past 8 hours): - 12/14/23 05:20 12/14/23 08:00 12/14/23 09:43 Temperature 98 F 98.2 F Pulse Rate 76 76 76 Respiratory Rate 20 16 Blood Pressure 126/65 136/84 136/84 Pulse Oximetry 94 96 Oxygen Flow Rate 0 0 12/14/23 12:00 Temperature 97.1 F L Pulse Rate 82 Respiratory Rate 16 Blood Pressure 128/60 Pulse Oximetry 97 Oxygen Flow Rate Oxygen Delivery Method Room Air Oxygen Flow Rate 0 Narrative Exam Narrative: NAD, alert and oriented to person. Slow speech. Slow to answer. Lungs are clear, normal rate and effort. Heart is regular, no murmur gallop or rub. Abdomen is soft, non distended. Extremities are free of edema. Moves arms and legs without difficulty, no facial droop. Objective Labs 12/14/23 05:14 12/11/23 13:09 Labs: Laboratory Results - last 24 hr 12/14/23 05:14 WBC 10.2 RBC 3.67 L Hgb 11.8 L Hct 34.1 L MCV 92.9 MCH 32.1 MCHC 34.5 RDW 14.0 Plt Count 279 Neut % (Auto) 73.6 Lymph % (Auto) 12.3 L [place] % (Auto) 7.3 Eos % (Auto) 5.8 H Baso % (Auto) 1.0 Neut # (Auto) 7500 H Lymph # (Auto) 1300 [place] # (Auto) 700 Eos # (Auto) 600 H Baso # (Auto) 100 PFSH Medical History Bladder neck contracture Hematuria Lower urinary tract symptoms (LUTS) Erectile dysfunction BPH loc w/o ur obs/LUTS CVA (cerebral vascular accident) Peripheral vascular disease Atherosclerosis History of stent insertion of renal artery Renal artery stenosis BPH (benign prostatic hyperplasia) Hypertension Hyperlipidemia Surgical History H/O vasectomy H/O hernia repair Hx of appendectomy S/P TURP Family History Father CVA (cerebral vascular accident) Mother COPD (chronic obstructive pulmonary disease) Sister Adopted Social History household members: spouse lives independently: Yes Smoking Status: Former smoker alcohol intake: former Discharge Plan Discharge Plan Patient Disposition: Home Provider Discharge Comment: Admitted to the hospital with possible TIA, trialed on wellbutrin for depression which resulted in a seizure. MRI negative. Continue seizure medications, outpatient follow up with neurology and prior to this PCP ideally in the next 1-2 weeks to review hospitalization and medication changes along with continued management of depression. Urology follow up for urinary retention as well. Discharge orders & Medications Prescriptions: New Eliquis 5 mg Tablet 5 mg PO BID Qty: 60 0RF levetiracetam 500 mg tablet 500 mg PO BID Qty: 60 0RF quetiapine [Seroquel] 25 mg tablet 25 mg PO BEDTIME 30 Days Qty: 30 0RF Continued clonidine HCl [Catapres] 0.2 MG tablet 0.2 mg PO BID Qty: 0 tamsulosin 0.4 mg capsule 0.4 mg PO QPM Qty: 90 3RF losartan 50 mg tablet 50 mg PO BID diltiazem HCl 180 mg capsule,extended release 24hr 180 mg PO DAILY Qty: 30 0RF furosemide 40 mg tablet 40 mg PO DAILY aspirin 81 mg Tablet,Delayed Release (Dr/Ec) 81 mg PO DAILY Qty: 30 0RF triamcinolone acetonide 0.5 % cream 1 applic topical BID PRN (Reason: Rash) rosuvastatin 10 mg tablet 10 mg PO QPM amlodipine 10 mg tablet 10 mg PO DAILY Discontinued sertraline 50 mg tablet 50 mg PO DAILY Medication counseling provided by Pharmacist: Yes Follow up/Referrals: Nelly Quinones MD [Physician] - 1 Week Brigette Ceron MD [Primary Care Provider] - 2 Weeks Other Ambulatory Orders: Referral Urology (Schedule) Timeframe: 2 Weeks Facility: [facility] - Location: [facility] Ordered By: Luis A Muniz Discharge Health Status Multidrug resistant organism: No MDRO Diet/Activity/Treatments Diet: Diet as Tolerated and Regular Activity: As tolerated no restrictions Visit Report/Discharge Packet Instructions: How to Care for Your Lr Catheter -- Male, DI for Stroke-Ischemic, DI for Transient Ischemic Attack, DI for Urinary Tract Infection (UTI), DI for Urinary Retention in Men, Quetiapine, Levetiracetam, Apixaban Stand Alone Forms: Patient Portal/API, Stroke Signs & Symptoms Discharge Data Primary Care Provider: Brigette Ceron
--- NOTE | 2023-12-14 12:40 | OT.IP.TRT ---
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 (12/08/23) Cerebral infarction, unspecified (12/08/23) Occupational Therapy Treatment Note M2 OT-IP Current Condition Start: 12/09/23 14:24 Freq: Status: Active Protocol: Document 12/09/23 13:35 [facility] (Rec: 12/09/23 14:56 [facility] [id number]) Occupational Therapy Current Condition Current Condition Evaluation Date 12/09/23 Treatment Diagnosis Severe depression, possible CVA Diagnosis Onset Date 12/08/23 M3 OT- IP Subjective and Pain Start: 12/09/23 14:24 Freq: Status: Active Protocol: Document 12/14/23 14:19 [facility] (Rec: 12/14/23 14:28 [facility] [id number]) OT- Subjective Occupational Therapy Visit Type Type Treatment Note Visit Start Time 12:40 Visit Stop Time 13:37 Occupational Therapy Visit Comments Patient Comments Pt wanting to use the toilet and agreed to shower. Pt's present for caregiver training. Patient/Caregiver Goals To go home. OT Pain Assessment Pain When Pain Assessed During Mobility Pain Present Pain Present Pain Reported Location Right Shoulder Pain Behaviors Facial Grimacing,Holding Area M4 OT- IP ADL's Start: 12/09/23 14:24 Freq: Status: Active Protocol: Document 12/14/23 14:19 [facility] (Rec: 12/14/23 14:28 [facility] [id number]) OT ADL-Grooming Comments OT Grooming Comments KAVITA for completeness to get the back on his hair. Due to limited AROM for his shoulders left greater than right. OT ADL-Dressing General Eval Upper Body Dressing Ability Minimal Assistance Lower Body Dressing Ability Maximum Assistance Comments OT Dressing Comments KAVITA to help get the t-short over his head. Assist to thread the catheter through his clothing and assist to help pull the pants up over his hips. Educated his on proper body mechanics to be able to assist with his ADL needs. OT ADL-Toileting General Evaluation Toileting Ability Moderate Assistance Comments OT Toileting Comments MODA for completeness to wipe. Educated his that it will be beneficial for her to just assist him to also ensure that pt does not get bowels on the catheter as pt normally wipes from back to front. OT ADL-Bathing General Evaluation Bathing Ability Maximal Assistance Comments OT Bathing Comments Pt's able to assist pt safely for showering needs. Suggested to get a shower chair and grab bars in the shower. Also called case management to request a shower aid for the pt at home. M5 OT- IP IADL's Start: 12/09/23 14:24 Freq: Status: Active Protocol: Document 12/09/23 13:35 [facility] (Rec: 12/09/23 14:56 [facility] [id number]) OT-Instrumental Activities of Daily Living Deficits IADL Deficits Identified Deficits Home Safety Awareness Awareness of Need for Assistance at Home Good Awareness Ability to Problem Solve Emergency Able to Problem Solve Situations Medication Management Medication Management Caregiver Administers Money Management Money Management Caregiver Provides Assistance Meal Preparation Meal Preparation Caregiver Provides Assist Painter And Body Mechanic Apprentice Painter And Body Mechanic Apprentice Caregiver Provides Assist M6 OT- IP Functional Cognition Start: 12/09/23 14:24 Freq: Status: Active Protocol: Document 12/14/23 14:19 [facility] (Rec: 12/14/23 14:28 [facility] [id number]) Cognitive Factors Limiting Selfcare Function Cognitive Ability Level of Alertness Alert Attention Span Ability Capable of Focused Attention, Unable to Focus Ability to Follow Commands Able to Follow One Step Commands with Increased Time, Able to Follow One Step Commands with Repetition Cognitive Comments Cognitive Assessment Comments Pt needing simple concrete cues to follow for ADl and mobility needs. M7 OT- IP Mobility and Balance Start: 12/09/23 14:24 Freq: Status: Active Protocol: Document 12/14/23 14:19 [facility] (Rec: 12/14/23 14:28 [facility] [id number]) OT-Transfer Assessment Sit to and From Stand Sit to and from Stand Contact Guard Assistance, Minimal Assistance Transfers Transfer Ability Contact Guard Assistance Technique Transfer Destination Chair,Shower Stall,Toilet Transfer Technique Stand Step Pivot Devices Transfer Assistive Devices Gait Belt,Front Wheeled Walker Comments Mobility Comments CGA to KAVITA to assist to stand and will greatly benefit from grab bars in the shower.VC for FWW safety. OT- Balance Assessment Sitting Balance and Reactions Static Sitting Balance Ability Good Dynamic Sitting Balance Ability Good Standing Balance and Reactions Static Standing Balance Ability Good Dynamic Standing Balance Ability Fair M8 OT- IP Objective Assessments Start: 12/09/23 14:24 Freq: Status: Active Protocol: Document 12/09/23 13:35 [facility] (Rec: 12/09/23 14:56 [facility] [id number]) OT Gross Range of Motion Upper Extremity Range of Motion ROM Impairments Decreased at end range of motion for his shoulders. OT Strength Comments Strength Comments Pt's 4-/5 to 4+/5 from proximal to distal. OT- Coordination Assessment Upper Extremity Finger to Nose Test Within Functional Limits M9 OT- IP Assessment and Plan Start: 12/09/23 14:24 Freq: Status: Active Protocol: Document 12/14/23 14:19 [facility] (Rec: 12/14/23 14:28 [facility] [id number]) OT Summary Assessment and Plan Potential Rehabilitation Potential Good Analytic Complexity at Evaluation Moderate Summary OT Impairments Range of Motion,Strength, Balance,Functional Cognition, Functional Mobility,Dressing, Toileting,Bathing,Toilet Transfers,Shower Transfers, Activity Tolerance Progress Towards Goals Progressing Toward Goals Assessment Summary Pt's able to safety assist pt for all mobility and ADL needs after education and suggestions for safety during toileting,dressing , and showering needs. Pt looking to take pt home and provide 24 /7 assist and have home health . Goals Self-Feeding Goal Independent Grooming Goal Standby Assistance Dressing Goal Minimal Assistance Toileting Goal Minimal Assistance Bathing Goal Minimal Assistance Toilet Transfer Goal Standby Assistance Shower Transfer Goal Contact Guard Assistance Days to Meet Goals 5 Frequency of Treatment Frequency Of Treatment Once a Day Treatment Plan OT Treatment Plan ADL Training,Functional Cognition Training,Functional Mobility,Patient/Family Education,Discharge Planning Discharge Recommendations OT Discharge Recommendations Home with 24/7 Assist Available,Home Health Home Equipment Needs shower chair Transportation Needs at Discharge Private Vehicle
--- NOTE | 2023-12-14 14:16 | PC.NURSE ---
Pt is dressed and ready for discharge home with Spouse. Pt has showered and IV and tele have been removed. Went over d/c instructions with Pt and Spouse-discussed d/c meds, time of last dose, reviewed stroke education, lr catheter care, reminded Spouse to try to keep Pt's Keppra dose on time. Spoke with Guadalupe in Pharmacy to come and do some Pt teaching about the new meds and she will be coming up. Pt and Spouse denied further questions and Spouse will be picking up prescriptions and Pt will be taken out via w/c by [employer] to POV with Spouse and all belongings.
== END 2023-12-14 14:52 | disposition home health service (06) | DRG 884 ==
LOC: ED 14:24 → AC 14:26 → ICU 12-11 13:32 → AC 12-13 22:42
PROVIDERS: Student in an Organized Health Care Education/Training Program; Admitting Provider Hospitalist; Emergency Provider Emergency Medicine; PCP Internal Medicine; Referring Provider Emergency Medicine; Visit Provider Hospitalist
DX: F03.93 Unspecified dementia, unspecified severity, with mood disturbance (principal); G45.9 Transient cerebral ischemic attack, unspecified; Q21.12 Patent foramen ovale; E87.1 Hypo-osmolality and hyponatremia; I12.9 Hypertensive chronic kidney disease with stage 1 through stage 4 chronic kidney disease, or unspecified chronic kidney disease; N18.9 Chronic kidney disease, unspecified; E78.5 Hyperlipidemia, unspecified; T43.295A Adverse effect of other antidepressants, initial encounter; F32.A Depression, unspecified; R56.9 Unspecified convulsions; R60.0 Localized edema; N40.1 Benign prostatic hyperplasia with lower urinary tract symptoms; R33.8 Other retention of urine; Z86.73 Personal history of transient ischemic attack (TIA), and cerebral infarction without residual deficits; Z66 Do not resuscitate; Z87.891 Personal history of nicotine dependence; Z79.01 Long term (current) use of anticoagulants
CPT/HCPCS: 0241U; 36415; 70450; 70496; 70498; 70551; 71045; 80048; 80053; 80061; 80305; 80320; 81001; 82550; 82962; 83036; 83605; 83735; 83880; 84146; 84300; 84484; 85025; 85610; 85730; 87797; 92526; 92610; 93005; 97116; 97161; 97162; 97166; 97530; 97535; 99285; J1644; J1953; Q9967

== ENCOUNTER → 2023-12-26 11:41 | Outpatient (CLI) | payer OTHER, SELFPAY ==
[2023-12-23 10:19] VITALS: BMI 32.2
== END ==
PROVIDERS: PCP Internal Medicine; Visit Provider Urology
DX: R31.9 Hematuria, unspecified (principal)
CPT/HCPCS: 87086

== ENCOUNTER 2023-12-26 12:06 | Emergency (ER) | payer OTHER, SELFPAY ==
[2023-12-23 10:19] VITALS: BMI 32.2
[2023-12-26 12:13] VITALS: BP 108/52; PULSE 50; RESP 17; TEMP 36.6; O2SAT 96; BMI 31.7
== END 2023-12-26 13:17 | disposition left against medical advice (07) ==
PROVIDERS: Emergency Provider Emergency Medicine; PCP Internal Medicine
DX: R31.9 Hematuria, unspecified (principal)
CPT/HCPCS: 87077; 87086; 87186; 99281

== ENCOUNTER 2023-12-28 09:11 | Observation (INO) | payer OTHER, SELFPAY ==
[2023-12-23 10:19] VITALS: BMI 32.2
[2023-12-28] VITALS (16 sets, daily range): BP systolic 108–154; BP diastolic 56–81; PULSE 43–75; RESP 16–24; TEMP 36.3–36.6; O2SAT 91–97; BMI 31.7
--- NOTE | 2023-12-28 09:23 | DI.RAD.S_ITS ---
PROCEDURE: XR CHEST 1V INDICATIONS: chest pain TECHNIQUE: One view of the chest was acquired. COMPARISON: [facility], CR, XR CHEST 1V, 12/11/2023, 13:10. FINDINGS: Surgical changes and devices: None. Lungs and pleura: Extensive hazy airspace opacities are noted throughout bilateral lung orr. Pulmonary vascular congestion is also noted. There is suggestion of mild pulmonary edema. No significant pleural effusion. No pneumothorax. Mediastinum: Mediastinal contours appear normal. Heart size is enlarged. Bones and chest wall: No suspicious bony lesions. Overlying soft tissues appear unremarkable. IMPRESSION: Finding is suggestive of CHF. Superimposed bilateral interstitial infiltrates cannot be excluded. No significant pleural effusion. No pneumothorax. Dictated by: Eric Kelley M.D. on 12/28/2023 at 9:37 Approved by: Eric Kelley M.D. on 12/28/2023 at 9:39
[2023-12-28 09:37] LABS: Add Manual Diff / Slide Review NO; Basophils Absolute Auto 0 /uL (0-100); Basophils Percent Auto 0.5 % (0-2); Eosinophils Absolute Auto 200 /uL (0-450); Eosinophils Percent Auto 1.8 % (2-4); Hemoglobin 10.6 g/dL (13.5-17.5); Lymphocytes Absolute Auto 800 /uL (1100-4500); Lymphocytes Percent Auto 9.2 % (25-40); Mean Corpuscular HGB Conc 35.2 % (30-36); Mean Corpuscular Hemoglobin 32.7 PG (26-34); Monocytes Absolute Auto 800 /uL (0-900); Monocytes Percent Auto 9.1 % (3-14); Neutrophils Absolute Auto 7200 /uL (1500-7000); Neutrophils Percent Auto 79.4 % (50-75); Platelet Count 268 X10^3/uL (150-400); Red Blood Cell Count 3.23 X10^6/uL (4.5-5.9); Red Cell Distribution Width 13.4 % (11.6-14.8); White Blood Cell Count 9.1 X10^3/uL (4.5-11.0)
[2023-12-28 09:42] LABS: INR 1.6 (0.9-1.3); Prothrombin Time 17.9 SECONDS (9.4-12.5)
[2023-12-28 09:44] LABS: PTT Partial Thromboplastin Tim 37 SECONDS (25.1-36.5)
[2023-12-28 09:49] LABS: Alanine Aminotransferase 22 IU/L (<50); Albumin 4.1 g/dL (3.5-5.0); Albumin Globulin Ratio 1.4 (1.0-2.8); Alkaline Phosphatase 59 U/L (38-126); Aspartate Aminotransferase 32 IU/L (17-59); BUN Creatinine Ratio 17.9 (6-22); Bilirubin Total 1.1 mg/dL (0.2-1.3); Blood Urea Nitrogen 22 mg/dL (9-20); Calcium 8.6 mg/dL (8.4-10.2); Carbon Dioxide 18 mmol/L (22-32); Chloride 96 mmol/L (98-107); Creatine Kinase 280 U/L (55-170); Estimated Glomerular Filt Rate 59 mL/min (>60); Globulin 2.9 g/dL (1.7-4.1); Glucose 120 mg/dL (80-110); HEMOLYSIS 20 (0-50); Lipase 66 U/L (23-300); Magnesium 1.9 mg/dL (1.6-2.3); Potassium 4.8 mmol/L (3.4-5.1); Sodium 123 mmol/L (137-145)
[2023-12-28 09:58] LABS: Troponin I < 0.012 ng/mL (0.01-0.034)
--- NOTE | 2023-12-28 10:08 | ED.DIZZY ---
HPI - Dizziness General Chief Complaint: Dizziness Stated Complaint: dizzy, lightheaded, sent by Uro. 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 Patient today was at an appointment with Urology was noted to have a blood pressure in the 100 range, heart rates been in the 40s to 50s here in the department initially. Patient's states that he continues take Keppra. The Wellbutrin was stopped. He was started on sertraline since he has been discharged but no other medication changes. He has felt lightheaded today no syncopal episodes. He had a little bit of chest discomfort earlier today before he went to his urology appointment. He states that has resolved. He has been a little short of breath and had increased swelling in his lower extremities. Patient used to be on Lasix but that was stopped because his blood pressures would get low while he was taking it. Patient has not had any fevers. No cold cough congestion symptoms. No orthopnea reported. He had his Espinoza catheter removed today still has to do his voiding trial. Patient notes no acute speech changes or other acute neurologic changes that 3rd appreciate currently. He is supposed to follow up with Neurology at the end of the month. He has not appointment to follow up with Cardiology with Dr. Astudillo. Dr. Brigette Ceron is his primary care physician. Patient is accompanied by his . They state that he felt a little symptomatic this morning but otherwise has felt normal this last few days. does note he has had some increasing general shortness of breath although he does not complain about it. Related Data Home Medications Medication Instructions Recorded Confirmed clonidine HCl 0.2 mg tablet 0.2 mg PO BID ##0 08/13/11 12/28/23 (Catapres) losartan 50 mg tablet 50 mg PO BID 02/19/19 12/28/23 amlodipine 10 mg tablet 10 mg PO DAILY 05/05/21 12/28/23 rosuvastatin 10 mg tablet 10 mg PO QPM 05/05/21 12/28/23 triamcinolone acetonide 0.5 % 1 applic topical BID PRN Rash 12/13/23 12/28/23 topical cream sertraline 50 mg tablet 50 mg PO DAILY 12/26/23 12/28/23 vitamin E mixed 1,000 unit capsule 50,000 unit PO 12/26/23 12/28/23 midodrine 2.5 mg tablet 2.5 mg PO ONCE 12/28/23 12/28/23 Previous Rx's Medication Instructions Recorded diltiazem HCl 180 mg 180 mg PO DAILY #30 caps 02/20/19 capsule,extended release 24 hr tamsulosin 0.4 mg capsule 0.4 mg PO QPM #90 caps 06/28/23 apixaban 5 mg tablet (Eliquis) 5 mg PO BID #60 tabs 12/10/23 aspirin 81 mg tablet,delayed 81 mg PO DAILY #30 tabs 12/10/23 release levetiracetam 500 mg tablet 500 mg PO BID #60 tabs 12/14/23 quetiapine 25 mg tablet (Seroquel) 25 mg PO BEDTIME 30 days #30 tabs 12/14/23 Allergies Allergy/AdvReac Type Severity Reaction Status Date / Time benazepril [From Lotensin] Allergy Unknown Verified 12/26/23 12:13 bupropion [From Wellbutrin] AdvReac Severe Seizure Verified 12/26/23 12:13 Review of Systems Review of Systems ROS Unobtainable: All systems reviewed & are unremarkable except as noted in HPI and below Patient History Medical History Bladder neck contracture Hematuria Lower urinary tract symptoms (LUTS) Erectile dysfunction BPH loc w/o ur obs/LUTS CVA (cerebral vascular accident) Peripheral vascular disease Atherosclerosis History of stent insertion of renal artery Renal artery stenosis BPH (benign prostatic hyperplasia) Hypertension Hyperlipidemia Surgical History H/O vasectomy H/O hernia repair Hx of appendectomy S/P TURP Family History Father CVA (cerebral vascular accident) Mother COPD (chronic obstructive pulmonary disease) Sister Adopted Social History household members: spouse lives independently: Yes Smoking Status: Former smoker alcohol intake: former Smoking Status: Former smoker Substance Use Type: does not use Exam Narrative Exam Narrative: GEN: Elderly appearing male, alert and oriented x 3, patient appears to be in mild distress. HEENT: Atraumatic, pupils are equal round reactive to light, extraocular movements are intact, nares are clear, there is no conjunctival pallor. Throat is clear without any exudates, erythema, tonsillar enlargement or uvular deviation, no facial droop. HEART: Irregularly irregular and bradycardic without murmur, clicks, rubs. Pulses are equal in upper and lower extremities, patient does have edema bilateral lower extremities. LUNGS:Lungs clear to auscultation, no wheezes, rales, crackles, chest moves symmetrically, no tachypnea accessory muscle use ABD:bowel sounds normal, soft, non-tender, no guarding, rebound, rigidity, no masses noted, no hepatosplenomegaly :No CVA tenderness MSCL: Non-tender, no muscle atrophy, muscles strength 5/5 upper and lower extremities, full range of motion. NEURO:CN 2-12 intact. Initial Vital Signs Initial Vital Signs: Vital Signs Temperature 97.3 F L 12/28/23 09:25 Pulse Rate 61 12/28/23 09:25 Respiratory Rate 18 12/28/23 09:25 Blood Pressure 129/61 12/28/23 09:25 Pulse Oximetry 94 12/28/23 09:25 Oxygen Delivery Method Room Air 12/28/23 09:25 Course Orders Ordered: ED Orders 12/28/23 09:23 XR chest 1V Stat EKG-12 Lead Stat 12/28/23 09:25 BNP [NT-proBNP (BNP-Adult 18+)] Stat Complete Blood Count AUTO DIFF Stat Comprehensive Metabolic Panel Stat Lipase Stat Magnesium Stat PTT Partial Thromboplastin Rashi Stat Prothrombin Time INR Stat Troponin & CK Cardiac Panel Stat 12/28/23 11:20 EKG-12 Lead Routine 12/28/23 11:22 Trop I [Troponin I] Stat 12/28/23 12:44 Sodium Urine Random Urgent 12/28/23 12:45 Consult to Occupational Therapy Evaluate & Treat Consult to Physical Therapy Evaluate & Treat Urinalysis and Microscopic Urgent Education, smoking cessation ONGOING 12/29/23 05:00 BMP [Basic Metabolic Panel] DAILY CBC Auto Diff [Complete Blood Count AUTO DIFF] DAILY 12/30/23 05:00 BMP [Basic Metabolic Panel] DAILY CBC Auto Diff [Complete Blood Count AUTO DIFF] DAILY 12/31/23 05:00 BMP [Basic Metabolic Panel] DAILY CBC Auto Diff [Complete Blood Count AUTO DIFF] DAILY 01/01/24 05:00 BMP [Basic Metabolic Panel] DAILY CBC Auto Diff [Complete Blood Count AUTO DIFF] DAILY 01/02/24 05:00 BMP [Basic Metabolic Panel] DAILY CBC Auto Diff [Complete Blood Count AUTO DIFF] DAILY Acetaminophen (Acetaminophen 325 Mg Tablet) 650 mg PO Q6H PRN PRN Reason: Fever/Mild Pain (1-3) Apixaban (Apixaban 5 Mg Tablet) 5 mg PO BID [facility] Aspirin (Aspirin Ec 81 Mg Tablet) 81 mg PO DAILY [facility] Atorvastatin Calcium (Atorvastatin 20 Mg Tablet) 20 mg PO BEDTIME [facility] Diltiazem HCl (Diltiazem Cd 180 Mg Cap) 180 mg PO DAILY [facility] Levetiracetam (Levetiracetam 250 Mg Tablet) 500 mg PO BID [facility] Naloxone HCl (Naloxone 0.4 Mg/Ml Vial) 0.2 mg IV Q2MIN PRN PRN Reason: Opiate Reversal Ondansetron HCl (Ondansetron 4 Mg/2 Ml Inj) 4 mg IV Q4HR PRN PRN Reason: Nausea And Vomiting Quetiapine Fumarate (Quetiapine 25 Mg Tablet) 25 mg PO BEDTIME [facility] Sertraline HCl (Sertraline 50 Mg Tablet) 50 mg PO DAILY [facility] Tamsulosin HCl (Tamsulosin 0.4 Mg Capsule) 0.4 mg PO QPM [facility] Vital Signs Vital signs: Vital Signs - 8 hr 12/28/23 09:25 12/28/23 09:28 12/28/23 09:30 Temperature 97.3 F L Pulse Rate 61 53 L Respiratory Rate 18 22 Blood Pressure 129/61 114/56 L Pulse Oximetry 94 93 Oxygen Delivery Method Room Air 12/28/23 09:30 12/28/23 09:50 12/28/23 10:00 Temperature Pulse Rate 58 L 43 L Respiratory Rate 24 Blood Pressure 108/62 Pulse Oximetry 93 Oxygen Delivery Method 12/28/23 10:00 12/28/23 10:30 12/28/23 10:30 Temperature Pulse Rate 47 L 51 L Respiratory Rate 22 21 Blood Pressure 121/65 Pulse Oximetry 91 93 Oxygen Delivery Method Room Air 12/28/23 11:00 12/28/23 11:00 12/28/23 12:01 Temperature Pulse Rate 46 L 54 L Respiratory Rate 20 16 Blood Pressure 120/62 126/66 Pulse Oximetry 93 94 Oxygen Delivery Method Room Air 12/28/23 12:33 12/28/23 13:00 12/28/23 13:00 Temperature Pulse Rate 56 L 57 L Respiratory Rate 20 21 Blood Pressure 133/68 142/73 H Pulse Oximetry 93 Oxygen Delivery Method MDM - Dizziness Lab Data 12/28/23 09:25 12/28/23 09:25 Labs: Lab Results 12/28/23 12/28/23 Range/Units 09:25 11:22 WBC 9.1 (4.5-11.0) X10^3/uL RBC 3.23 L (4.5-5.9) X10^6/uL Hgb 10.6 L (13.5-17.5) g/dL Hct 30.0 L (41-53) % MCV 93.0 (80-100) fL MCH 32.7 (26-34) PG MCHC 35.2 (30-36) % RDW 13.4 (11.6-14.8) % Plt Count 268 (150-400) X10^3/uL Neut % (Auto) 79.4 H (50-75) % Lymph % (Auto) 9.2 L (25-40) % [place] % (Auto) 9.1 (3-14) % Eos % (Auto) 1.8 L (2-4) % Baso % (Auto) 0.5 (0-2) % Neut # (Auto) 7200 H (6479-4936) /uL Lymph # (Auto) 800 L (5725-8113) /uL [place] # (Auto) 800 (0-900) /uL Eos # (Auto) 200 (0-450) /uL Baso # (Auto) 0 (0-100) /uL PT 17.9 H (9.4-12.5) SECONDS INR 1.6 H (0.9-1.3) APTT 37 H (25.1-36.5) SECONDS Sodium 123 L (137-145) mmol/L Potassium 4.8 (3.4-5.1) mmol/L Chloride 96 L (98-107) mmol/L Carbon Dioxide 18 L (22-32) mmol/L BUN 22 H (9-20) mg/dL Creatinine 1.23 (0.66-1.25) mg/dL Estimated GFR 59 L (>60) mL/min BUN/Creatinine Ratio 17.9 (6-22) Glucose 120 H (80-110) mg/dL Calcium 8.6 (8.4-10.2) mg/dL Magnesium 1.9 (1.6-2.3) mg/dL Total Bilirubin 1.1 (0.2-1.3) mg/dL AST 32 (17-59) IU/L ALT 22 (<50) IU/L Alkaline Phosphatase 59 (38-126) U/L Total Creatine Kinase 280 H (55-170) U/L Troponin I < 0.012 0.016 (0.01-0.034) ng/mL NT-Pro-B Natriuret Pep 3540 H (<450) pg/mL Total Protein 7.0 (6.3-8.2) g/dL Albumin 4.1 (3.5-5.0) g/dL Globulin 2.9 (1.7-4.1) g/dL Albumin/Globulin Ratio 1.4 (1.0-2.8) Lipase 66 (23-300) U/L Imaging Data Chest x-ray: Radiologist's Impression: Close Chest X-Ray (Signed) Eric Kelley - 12/28/23 Chest X-Ray (Signed) Raúl Chandra - 12/11/[address] (Signed) Raúl Chandra - 12/11/23 Brain MRI (Signed) Napoleon Feliciano - 12/08/23 Telemetry Strips 12/08/23 Telemetry Strips 12/08/23 Head/Neck CTA (Signed) Raúl Chandra - 12/08/23 Chest X-Ray (Signed) Fredrick Crawley - 12/08/[address] (Signed) Igor Hsu - 12/08/23 Hip X-Ray (Signed) Call,Trent - 05/27/22 Femur X-Ray (Signed) Call,Trent - 05/27/22 Abdomen/Pelvis CT (Signed) Isauro Spence - 08/11/21 Radiology Report (Cancelled) Vi Astudillo - 04/30/20 Myocardial Perfusion Scan Nuc Med (Signed) Vi Astudillo - 04/30/20 Carotid Doppler Study (Signed) Raúl Chandra - 03/21/20 Vascular Ultrasound (Signed) MattRaphael - 05/31/19 Echocardiogram Ultrasound (Signed) KaushikLeo - 02/19/19 Brain MRI (Signed) Isauro Spence - 02/19/19 Telemetry Strips 02/19/[address] (Signed) Isauro Spence - 02/19/19 Abdominal Arterial Study US (Signed) Raúl Chandra - 12/11/18 Chest X-Ray (Signed) Alex Azul - 11/01/18 Launch?[place] [address] XRay Report Signed Patient: Arun Barajas MR#: [id number] : 1945 Acct:[id number] Age/Sex: 78 / M Date of Service: 12/28/23 Loc: ED Accession Number: [id number] Procedure: XR chest 1V Ordering Provider: Polly Monroe D.O. PROCEDURE: XR CHEST 1V INDICATIONS: chest pain TECHNIQUE: One view of the chest was acquired. COMPARISON: [facility], , XR CHEST 1V, 12/11/2023, 13:10. FINDINGS: Surgical changes and devices: None. Lungs and pleura: Extensive hazy airspace opacities are noted throughout bilateral lung orr. Pulmonary vascular congestion is also noted. There is suggestion of mild pulmonary edema. No significant pleural effusion. No pneumothorax. Mediastinum: Mediastinal contours appear normal. Heart size is enlarged. Bones and chest wall: No suspicious bony lesions. Overlying soft tissues appear unremarkable. IMPRESSION: Finding is suggestive of CHF. Superimposed bilateral interstitial infiltrates cannot be excluded. No significant pleural effusion. No pneumothorax. Dictated by: Eric Kelley M.D. on 12/28/2023 at 9:37 Approved by: Eric Kelley M.D. on 12/28/2023 at 9:39 ECG Data Attestation: I personally reviewed and interpreted this ECG as follows: Prior ECG tracings: available for review Interpretation: AFib with slow ventricular response rate of 55 QRS 82 QTC 397. No acute ST elevation appreciated patient some nonspecific change. Patient has prior from 12/08/2023 shows AFib with a rate of 67. Prior EKGs from with have a rate in the 60s. Here in the department patient's fairly consistently between 40s and 50s. Repeat blood pressure was somewhat improved in the 120 range on recheck. EKG 2. Shows AFib with rate of 56 QRS is 78 QTC 413. Patient's EKG does continue to appears similar to prior from earlier today. MDM Narrative Medical decision making narrative: 78-year-old male comes in with complaint of dizziness patient is noted to have a systolic blood pressure 108 at 1 point and heart rate in the 40s to 50s although patient has prior EKGs showed rates in the 60s. Patient does have atrial fibrillation he is on amlodipine, diltiazem and clonidine which could affect his rate does not appear to be on any other medications that would. Labs show white count of 9.1 hemoglobin of 10, slight decreased from 11.8 at the beginning of the month. Platelets are 268. INR is 1.6, creatinine is 1.23 looks fairly consistent with priors, sodium is 123 this is quite a bit lower than it was on the 5th when he was discharged. Potassium 4.8 chloride 96 CO2 is 18 with a BUN 22, glucose of 120 LFTs are negative. Total CK is 280 with a troponin of less than 0.012. BNP is elevated at 35 40 but is still improved from the 5th at 5700. Troponin was repeated is 0.016 EKG shows AFib with slow ventricular response, prior EKGs show AFib in the beginning of the month. Rates been consistently in the 60s with EKGs from 2018 and 2023. Patient was at Urology to have his Espinoza catheter removed. He is supposed to return this afternoon for voiding trial. Discussed with patient and family, his heart rate continues to run low but his blood pressure is overall appropriate. Patient's sodium is lower than when he was hospitalized most recently. Discussed with hospitalist Dr. Awad who agrees patient would benefit from being observed overnight. Patient has not received any fluids as he does not appear to be in CHF although not hypoxic. His blood pressure has improved during his stay here in the department. Patient initially chose to return home but after being transferred to the wheelchair realized he would benefit from staying and instead of leaving Against Medical Advice was kept for observation. Discharge Plan Departure Patient Disposition: Admitted as Observation Clinical Impression: Dizziness, Hyponatremia, Congestive heart failure (CHF) Admit Date/Time: 12/28/23 13:27 Admit Provider: Leonel Awad
[2023-12-28 10:58] LABS: NT-proBNP (BNP-Adult 18+) 3540 pg/mL (<450)
[2023-12-28 11:54] LABS: Troponin I 0.016 ng/mL (0.01-0.034)
--- NOTE | 2023-12-28 15:42 | PT.IIE ---
Surgical History (Last Reviewed 12/28/23 @ 10:39 by Polly Monroe DO) H/O hernia repair H/O vasectomy Hx of appendectomy S/P TURP Medical History (Last Reviewed 12/28/23 @ 10:39 by Polly Monroe DO) Atherosclerosis Bladder neck contracture BPH (benign prostatic hyperplasia) BPH loc w/o ur obs/LUTS CVA (cerebral vascular accident) Erectile dysfunction Hematuria History of stent insertion of renal artery Hyperlipidemia Hypertension Lower urinary tract symptoms (LUTS) Peripheral vascular disease Renal artery stenosis Physical Therapy Inpatient Evaluation/Re-Eval M1 PT/OT-IP Prior Functional Status Start: 12/28/23 16:26 Freq: NEEDED Status: Active Protocol: Document 12/28/23 15:42 AB (Rec: 12/28/23 16:42 AB [id number]) Medical Review Prior Functional Status Medical History Reviewed Yes Communication able to make needs known Mobility and Gait pt has memory issues and inconsistent with providing information: stated that he was modified independent with all mobilities and ambulation without AD but occasionally uses a SPC; per nurse: spouse said that pt started using a FWW Social History Household Members spouse Living Arrangements House Number of Floors (Floors) Two Floors Number of Stairs To Enter/Railing? 2 steps without rails to enter 13 steps L rail ascending to get to bedroom level Home Environment Standard Height Toilet,Tub/ Shower Home Equipment Front Wheel Walker,Straight Cane M2 PT-IP Current Condition Start: 12/28/23 16:26 Freq: NEEDED Status: Active Protocol: Document 12/28/23 15:42 AB (Rec: 12/28/23 16:42 AB [id number]) Physical Therapy Current Condition Current Condition Evaluation Date 12/28/23 Treatment Diagnosis hyponatremia; CHF; difficulty in walking Onset Date 12/28/23 M3 PT-IP Subjective Start: 12/28/23 16:26 Freq: NEEDED Status: Active Protocol: Document 12/28/23 15:42 AB (Rec: 12/28/23 16:42 AB [id number]) Subjective Physical Therapy Visit Type Type Initial Evaluation Visit Start Time 15:42 Visit Stop Time 16:20 Number of [employer] Visits 0 Physical Therapy Visit Comments Patient Comments agreeable to do PT Therapy Pain Assessment Pain Present Pain Present Denied Pain M4 PT-IP Mobility and Gait Start: 12/28/23 16:26 Freq: NEEDED Status: Active Protocol: Document 12/28/23 15:42 AB (Rec: 12/28/23 16:42 AB [id number]) PT-Bed Mobility Assessment Supine to Sit Supine to Sit Standby Assistance Sit to Supine Sit to Supine Standby Assistance PT-Transfer Assessment Sit to and From Stand Sit to and from Stand Contact Guard Assistance,1 Person Assistance,Use of Upper Extremities Equipment Transfer Assistive Device Gait Belt,Front Wheeled Walker Orthotic/Prosthetic Devices or Brace: No Comments Mobility Comments pt supine in bed and agreeable to do PT. obtained PLOF and home set up from pt. pt is not consistent with info provided. pt with dx dementia. BP monitored. BP in supine: 130/60. pt completed supine to sit SBA. able to sit on EOB SBA to CGA. begins to slightly leans back and elevated LE up the longer pt sits on EOB and needs cues to lean forward. BP with initial sittin/ 65. pt sat for 2-3 minutes and BP rechecked: 145/61. O2 sat: 93-94% at RA. pt completed sit to stand CGA. BP in standin/72. pt initially took 2 steps using FWW CGA but moved FWW to the side and ambulated in room without AD CGA but requiring min A towards end of ambulation due to increase unsteadiness and (+) SOB. pt presents with unsteady shuffling gait with increase lateral trunk lean to the R. BP checked after ambulation seated on EOB: 155/66. O2 sat: 94% HR 90 bpm. pt completed sit to supine SBA. positioned pt in bed. call light and table placed next to pt. left pt with NAC. Gait Assessment Gait Gait Assistance Required: Contact Guard Assist,Minimum Assistance Distance (Feet) 30 Able to Maintain Weight Bearing Status Yes During Gait Assistive Devices Assistive Device None,Gait Belt Orthotic/Prosthetic Devices or Brace: No Gait Deviations General Gait Pattern Ataxic,Decreased Stride Length ,Decreased Feet Clearance,Step -to Gait Factors Limiting Gait Function Factors Limiting Gait Function Decreased Activity Tolerance, Decreased Strength,Difficulty Following Directions,Poor Balance,Poor Safety Awareness PT-Balance Assessment Sitting Balance and Reactions Static Sitting Balance Ability Good Dynamic Sitting Balance Ability Fair Standing Balance and Reactions Static Standing Balance Ability Fair Dynamic Standing Balance Ability Fair Device Used without AD M5 PT-IP Objective Assessments Start: 12/28/23 16:26 Freq: NEEDED Status: Active Protocol: Document 12/28/23 15:42 AB (Rec: 12/28/23 16:42 AB [id number]) Orientation Orientation/Cognition Level of Alertness Alert Orientation Name,Place,Situation Language Function Ability Hard of Hearing Safety Awareness Decreased Safety Awareness Memory Description Short Term Impaired,Fdc Impaired Gross Range of Motion Lower Extremity ROM Assessment Within Functional Limits Strength Lower Extremity Strength Assessment Within Functional Limits Muscle Tone Muscle Tone WNL Yes M6 PT-IP Treatment Start: 12/28/23 16:26 Freq: NEEDED Status: Active Protocol: Document 12/28/23 15:42 AB (Rec: 12/28/23 16:42 AB [id number]) Physical Therapy Treatment Education Education Provided Safety M7 PT-IP Assessment and Plan Start: 12/28/23 16:26 Freq: NEEDED Status: Active Protocol: Document 12/28/23 15:42 AB (Rec: 12/28/23 16:42 AB [id number]) PT Summary Assessment and Plan Potential Rehabilitation Potential Fair Status of Condition at Evaluation Evolving Summary Impairments Pain,ROM,Strength,Balance, Coordination,Sensation,Tone, Cognition,Bed Mobility, Transfers,Gait,Activity Tolerance Assessment Summary pt is an 78 y/o M who presented to the ED after referral by urology due to dizziness and hypotension. pt in hospital for hyponatremia, CHF. pt requiring CGA to min A with mobility without AD and recommending use of FWW at this time for safety. pt presents with decrease activity tolerance affecting mobility independence. pt plans to go home and spouse to assist him. will conducted caregiver training when appropriate as well as stair climbing training. Goals Bed Mobility Goal Independent Transfer Goal Independent,Front Wheeled Walker Gait Goal Independent,Front Wheel Walker Gait Distance 300 Other Goals up/down 2 steps without rails SBA up/down 13 steps L rail ascending SBA improve transfers and ambulation using LRAD ~ 250 ft SBA Days to Meet Goals 10 Frequency of Treatment Frequency Of Treatment Once a Day Treatment Plan Physical Therapy Treatment Plan Bed Mobility Training,Transfer Training,Gait Training, Therapeutic Exercise,Balance Retraining,Discharge Planning, Hot or Cold Pack,Neuromuscular Re-ed,Coordination Retraining Precautions Other Precautions fall; BP Recommendations To Nursing Amount of Assist Needed 1 Person Assist Discharge Recommendations PT Discharge Recommendations Home with Assistance,Home Health,Outpatient PT Transportation Needs at Discharge Private Vehicle
--- NOTE | 2023-12-28 15:43 | PM.HP.1 ---
History of Present Illness History of Present Illness Date Patient Seen: 12/08/23 Chief complaint: dizzy, lightheaded, sent by Uro. low bp Narrative: Arun Barajas is an 78yo M with PMH of hypertension, dyslipidemia, single kidney, chronic kidney disease, recent diagnosis of PFO, seizures, and dementia who presents with worsening dypsnea, LE swelling and weakness. Patient is demented so history obtained from . She states that he has had progressive shortness of breath and weakness with swelling in his legs over the past couple of weeks. He had a chronic Lr removed in urology clinic this morning a sent to the ED after provider noted these symptoms. He was recently having some hematuria in the Lr catheter so his Eliquis and aspirin was held the past few days. He has otherwise been doing ok at home with home health coming. He notes no chest pain, NV, abd pain or diarrhea. PFSH Medical History Bladder neck contracture Hematuria Lower urinary tract symptoms (LUTS) Erectile dysfunction BPH loc w/o ur obs/LUTS CVA (cerebral vascular accident) Peripheral vascular disease Atherosclerosis History of stent insertion of renal artery Renal artery stenosis BPH (benign prostatic hyperplasia) Hypertension Hyperlipidemia Surgical History H/O vasectomy H/O hernia repair Hx of appendectomy S/P TURP Family History Father CVA (cerebral vascular accident) Mother COPD (chronic obstructive pulmonary disease) Sister Adopted Social History household members: spouse lives independently: Yes Smoking Status: Former smoker alcohol intake: former Meds Home Medications and Allergies Home Medications Medication Instructions Recorded Confirmed Type clonidine HCl 0.2 mg tablet 0.2 mg PO BID ##0 08/13/11 12/28/23 History (Catapres) losartan 50 mg tablet 50 mg PO BID 02/19/19 12/28/23 History amlodipine 10 mg tablet 10 mg PO QPM 05/05/21 12/28/23 History rosuvastatin 10 mg tablet 10 mg PO QPM 05/05/21 12/28/23 History tamsulosin 0.4 mg capsule 0.4 mg PO QPM #90 caps 06/28/23 12/28/23 Rx apixaban 5 mg tablet (Eliquis) 5 mg PO BID #60 tabs 12/10/23 12/28/23 Rx aspirin 81 mg tablet,delayed 81 mg PO DAILY #30 tabs 12/10/23 12/28/23 Rx release triamcinolone acetonide 0.5 % 1 applic topical BID PRN Rash 12/13/23 12/28/23 History topical cream levetiracetam 500 mg tablet 500 mg PO BID #60 tabs 12/14/23 12/28/23 Rx quetiapine 25 mg tablet (Seroquel) 25 mg PO BEDTIME 30 days #30 tabs 12/14/23 12/28/23 Rx sertraline 50 mg tablet 50 mg PO DAILY 12/26/23 12/28/23 History vitamin E mixed 1,000 unit capsule 50,000 unit PO WEEKLY 12/26/23 12/28/23 History diltiazem HCl 120 mg 120 mg PO DAILY 12/28/23 12/28/23 History capsule,extended release 24 hr, controlled Allergies Allergy/AdvReac Type Severity Reaction Status Date / Time benazepril [From Lotensin] Allergy Unknown Verified 12/26/23 12:13 bupropion [From Wellbutrin] AdvReac Severe Seizure Verified 12/26/23 12:13 Review of Systems Review of Systems Narrative: All other systems reviewed with the patient and are negative unless otherwise stated. Exam Vital Signs (past 8 hours): - 12/28/23 09:25 12/28/23 09:28 12/28/23 09:30 Temperature 97.3 F L Pulse Rate 61 53 L Respiratory Rate 18 22 Blood Pressure 129/61 114/56 L Pulse Oximetry 94 93 Oxygen Delivery Method Room Air 12/28/23 09:30 12/28/23 09:50 12/28/23 10:00 Temperature Pulse Rate 58 L 43 L Respiratory Rate 24 Blood Pressure 108/62 Pulse Oximetry 93 Oxygen Delivery Method 12/28/23 10:00 12/28/23 10:30 12/28/23 10:30 Temperature Pulse Rate 47 L 51 L Respiratory Rate 22 21 Blood Pressure 121/65 Pulse Oximetry 91 93 Oxygen Delivery Method Room Air 12/28/23 11:00 12/28/23 11:00 12/28/23 12:01 Temperature Pulse Rate 46 L 54 L Respiratory Rate 20 16 Blood Pressure 120/62 126/66 Pulse Oximetry 93 94 Oxygen Delivery Method Room Air 12/28/23 12:33 12/28/23 13:00 12/28/23 13:00 Temperature Pulse Rate 56 L 57 L Respiratory Rate 20 21 Blood Pressure 133/68 142/73 H Pulse Oximetry 93 Oxygen Delivery Method 12/28/23 14:18 Temperature Pulse Rate 54 L Respiratory Rate 22 Blood Pressure 146/81 H Pulse Oximetry 93 Oxygen Delivery Method Room Air Oxygen Delivery Method Room Air Narrative Exam Narrative: GEN: no acute distress, demented HEENT: moist mucous membranes, PERRL NECK: trachea midline, no JVD CV: irregularly irregular, no murmurs PULM: bibasilar rales present ABD: soft, nontender, nondistended, no organomegaly EXT: warm and well perfused with 3+ edema to knees NEURO: awake, alert, oriented, no focal deficits Objective Labs 12/28/23 09:25 12/28/23 09:25 Labs: Laboratory Results - last 24 hr 12/28/23 12/28/23 09:25 11:22 WBC 9.1 RBC 3.23 L Hgb 10.6 L Hct 30.0 L MCV 93.0 MCH 32.7 MCHC 35.2 RDW 13.4 Plt Count 268 Neut % (Auto) 79.4 H Lymph % (Auto) 9.2 L Hooker % (Auto) 9.1 Eos % (Auto) 1.8 L Baso % (Auto) 0.5 Neut # (Auto) 7200 H Lymph # (Auto) 800 L Hooker # (Auto) 800 Eos # (Auto) 200 Baso # (Auto) 0 PT 17.9 H INR 1.6 H APTT 37 H Sodium 123 L Potassium 4.8 Chloride 96 L Carbon Dioxide 18 L BUN 22 H Creatinine 1.23 Estimated GFR 59 L BUN/Creatinine Ratio 17.9 Glucose 120 H Calcium 8.6 Magnesium 1.9 Total Bilirubin 1.1 AST 32 ALT 22 Alkaline Phosphatase 59 Total Creatine Kinase 280 H Troponin I < 0.012 0.016 NT-Pro-B Natriuret Pep 3540 H Total Protein 7.0 Albumin 4.1 Globulin 2.9 Albumin/Globulin Ratio 1.4 Lipase 66 Assessment & Plan Assessment & Plan narrative: # HFpEF exacerbation -prior echo in November 2023 with EF 65-70%, will not repeat -lasix 40mg IV BID -monitor leg edema, as currently 2-3+ -check protein/creatinine ratio # hyponatremia -Na 123 -likely hypervolemic -urine sodium pending -lasix as above -monitor # dyspnea, weakness -likely due to fluid retention with pulm edema on CXR and very swollen legs -PT/OT # dementia -not formally diagnosed, has been having worsening cognitive decline per # HTN -hold antihypertensives while diuresing -consider discontinuing amlodipine due to known side effect of edema # PFO and prior TIA -continue ASA and eliquis # persistent A-fib -continue eliquis and diltiazem # seizures -continue keppra # depression -continue sertraline and seroquel # HLD -continue statin # BPH -had lr removed at urology clinic prior to admission -continue flomax Code status is DNR. DVT prophylaxis with Eliquis. Proxy is . I have reviewed home meds and used all available resources to reconcile the home meds. Case discussed with ED physician/APC and patient will be admitted to the hospitalist service for further workup and management. This patient will be admitted as observation and will require less than 2 midnights of hospital time to treat HFpEF exacerbation. Quality VTE Deep Vein Thrombosis/Pulmonary Embolism Present on Admission: No
--- NOTE | 2023-12-28 16:00 | PC.NURSE ---
Pt arrived from ED at 1430, VSS on RA, no c/o pain. A&O to self, location and date, unable to state why he's here in the hospital. CMS+, fine crackles in bases of lungs, 2+ pitting edema to bilat LE and feet, bowel sounds present. Assisted to bathroom to attempt voiding, able to successfully void 500mL in hat, PVR 173mL. 1 assist w/FWW. Patient and spouse oriented to room and call light. Bed in low position, call light within reach, bed alarm activated.
--- NOTE | 2023-12-28 16:03 | OT.IPNOTE ---
Pt being seen by PT, therefore to check on pt tomorrow for OT eval.
[2023-12-28 16:13] LABS: Appearance Urine UA CLEAR; Bilirubin Urine UA NEGATIVE (NEGATIVE); Color Urine UA YELLOW; Glucose Urine UA NEGATIVE (Negative); Ketones Urine UA NEGATIVE (NEGATIVE); Leukocyte Esterase Urine UA TRACE (NEGATIVE); Nitrite Urine UA NEGATIVE (Negative); Occult Blood Urine UA 3+ (Negative); Protein Urine UA NEGATIVE (Negative)
[2023-12-28] MEDS: TAMSULOSIN 0.4 MG CAPSULE PO (16:23)
[2023-12-28] MEDS: FUROSEMIDE 40 MG/4 ML VIAL IV (16:23)
[2023-12-28 16:28] LABS: Sodium Urine Random < 5 mmol/L (30-90)
[2023-12-28 16:30] LABS: Creatinine Urine Random 59.82 mg/dL; Protein (Total) Urine Random 32 mg/dL (0-12); Protein Creatinine Ratio Urine 0.53 GRAM/24H
[2023-12-28 16:51] LABS: Bacteria Urine Occasional (0-1); Culture Indicated Urine Specimen Cultured; RBC Urine 10-30/HPF (0-5/HPF); Squamous Epithelial Cell Urine 0-1 /HPF (0-5/HPF); Urine Volume 10mL (spun); WBC Urine 1-5/HPF (0-5/HPF)
[2023-12-28 18:18] LABS: Sodium 124 mmol/L (137-145)
[2023-12-28] MEDS: APIXABAN 5 MG TABLET PO (20:36)
[2023-12-28] MEDS: QUETIAPINE 25 MG TABLET PO (20:36)
[2023-12-28] MEDS: levETIRAcetam 250 MG TABLET 500 MG PO (20:36)
[2023-12-28] MEDS: ATORVASTATIN 20 MG TABLET PO (20:36)
[2023-12-29 00:11] VITALS: BP 132/65; PULSE 79; RESP 19; TEMP 36.8; O2SAT 94
[2023-12-29 00:12] VITALS: BP 132/65; BP 137/59; BP 140/75; PULSE 84; PULSE 88
[2023-12-29 04:57] VITALS: BP 153/75; PULSE 80; RESP 19; TEMP 37.2; O2SAT 94
[2023-12-29 05:12] LABS: Add Manual Diff / Slide Review NO; Basophils Absolute Auto 0 /uL (0-100); Basophils Percent Auto 0.5 % (0-2); Eosinophils Absolute Auto 300 /uL (0-450); Eosinophils Percent Auto 4.1 % (2-4); Hematocrit 29.3 % (41-53); Hemoglobin 10.1 g/dL (13.5-17.5); Lymphocytes Absolute Auto 800 /uL (1100-4500); Lymphocytes Percent Auto 10.3 % (25-40); Mean Corpuscular HGB Conc 34.5 % (30-36); Mean Corpuscular Hemoglobin 32.1 PG (26-34); Mean Corpuscular Volume 92.9 fL (80-100); Monocytes Absolute Auto 700 /uL (0-900); Monocytes Percent Auto 9.4 % (3-14); Neutrophils Absolute Auto 5800 /uL (1500-7000); Neutrophils Percent Auto 75.7 % (50-75); Platelet Count 261 X10^3/uL (150-400); Red Blood Cell Count 3.15 X10^6/uL (4.5-5.9); Red Cell Distribution Width 13.7 % (11.6-14.8); White Blood Cell Count 7.6 X10^3/uL (4.5-11.0)
[2023-12-29 05:24] LABS: BUN Creatinine Ratio 18.6 (6-22); Blood Urea Nitrogen 22 mg/dL (9-20); Calcium 8.5 mg/dL (8.4-10.2); Carbon Dioxide 24 mmol/L (22-32); Chloride 98 mmol/L (98-107); Estimated Glomerular Filt Rate > 60 mL/min (>60); Glucose 86 mg/dL (80-110); HEMOLYSIS < 15 (0-50); Sodium 128 mmol/L (137-145)
[2023-12-29 07:38] VITALS: BP 144/62; PULSE 76; RESP 21; TEMP 37; O2SAT 94
[2023-12-29] MEDS: FUROSEMIDE 40 MG/4 ML VIAL IV (09:24)
[2023-12-29] MEDS: SERTRALINE 50 MG TABLET PO (09:25)
[2023-12-29] MEDS: dilTIAZem CD 120 MG CAP PO (09:25)
[2023-12-29] MEDS: ASPIRIN EC 81 MG TABLET PO (09:25)
[2023-12-29] MEDS: levETIRAcetam 250 MG TABLET 500 MG PO (09:25)
[2023-12-29] MEDS: APIXABAN 5 MG TABLET PO (09:25)
--- NOTE | 2023-12-29 09:40 | OT.IP.EVAL ---
Past Medical History (Last Reviewed 12/28/23 @ 10:39 by Polly Monroe DO) Atherosclerosis Bladder neck contracture BPH (benign prostatic hyperplasia) BPH loc w/o ur obs/LUTS CVA (cerebral vascular accident) Erectile dysfunction Hematuria History of stent insertion of renal artery Hyperlipidemia Hypertension Lower urinary tract symptoms (LUTS) Peripheral vascular disease Renal artery stenosis Surgical History (Last Reviewed 12/28/23 @ 10:39 by Polly Monroe DO) H/O hernia repair H/O vasectomy Hx of appendectomy S/P TURP Occupational Therapy Inpatient Evaluation/Re-Eval M1 PT/OT-IP Prior Functional Status Start: 12/28/23 16:26 Freq: NEEDED Status: Active Protocol: Document 12/29/23 09:31 [facility] (Rec: 12/29/23 09:47 [facility] [id number]) Medical Review Prior Functional Status Medical History Reviewed Yes Communication able to make needs known Mobility and Gait pt has memory issues and inconsistent with providing information: stated that he was modified independent with all mobilities and ambulation without AD but occasionally uses a SPC; per nurse: spouse said that pt started using a FWW Activities of Daily Living and IADL's Pt states did most of his ADL' s on his own but that his would assist at times. Pt's did all the IADL needs. Social History Household Members spouse Living Arrangements House Number of Floors (Floors) Two Floors Number of Stairs To Enter/Railing? 2 steps without rails to enter 13 steps L rail ascending to get to bedroom level Home Environment Standard Height Toilet,Tub/ Shower Home Equipment Front Wheel Walker,Straight Cane,Shower Seat with Backrest Additional Social History Comment Pt states feels that he has a shower chair at home but not sure. M2 OT-IP Current Condition Start: 12/29/23 09:30 Freq: Status: Active Protocol: Document 12/29/23 09:31 [facility] (Rec: 12/29/23 09:47 [facility] [id number]) Occupational Therapy Current Condition Current Condition Evaluation Date 12/29/23 Treatment Diagnosis CHF, Hypoatremia Diagnosis Onset Date 12/28/23 M3 OT- IP Subjective and Pain Start: 12/29/23 09:30 Freq: Status: Active Protocol: Document 12/29/23 09:31 [facility] (Rec: 12/29/23 09:47 [facility] [id number]) OT- Subjective Occupational Therapy Visit Type Type Initial Evaluation Visit Start Time 08:50 Visit Stop Time 09:30 Occupational Therapy Visit Comments Patient Comments Pt wanting to use the bathroom . Patient/Caregiver Goals TO go home. OT Pain Assessment Pain When Pain Assessed During Mobility Pain Present Pain Present Pain Reported Location Left Shoulder Pain Behaviors Guarding,Wincing M4 OT- IP ADL's Start: 12/29/23 09:30 Freq: Status: Active Protocol: Document 12/29/23 09:31 [facility] (Rec: 12/29/23 09:47 [facility] [id number]) OT CRK-Dydp-Irtndvg General Evaluation Self-Feeding Ability Independent OT ADL-Grooming General Evaluation Grooming Ability Standby Assistance Areas Needing Assistance Retrieving/Set-up of Grooming Items Comments OT Grooming Comments Pt able to stand with FWW while doing grooming needs. OT ADL-Oral Care General Eval Oral Care Ability Independent Comments Oral Care Comments While standing with FWW OT ADL-Dressing General Eval Lower Body Dressing Ability Minimal Assistance Areas Needing Assistance Socks Comments OT Dressing Comments Assist to help jacqueline socks over his feet. Pt states feels that he usually props his feet up on something but no sure. OT ADL-Toileting General Evaluation Toileting Ability Standby Assistance,Minimal Assistance Areas Needing Assistance Manage Clothing Comments OT Toileting Comments Pt able to use the toilet. If having to change out his brief would need assist at times to get the brief over his feet and for completeness to wipe. OT ADL-Bathing Comments OT Bathing Comments Not performed. Pt will benefit from assist at home. M5 OT- IP IADL's Start: 12/29/23 09:30 Freq: Status: Active Protocol: Document 12/29/23 09:31 [facility] (Rec: 12/29/23 09:47 [facility] [id number]) OT-Instrumental Activities of Daily Living Home Safety Awareness Awareness of Need for Assistance at Home Decreased Awareness Home Safety Comments Pt us aware that his is home all theh time to assist him. Medication Management Medication Management Caregiver Administers Money Management Money Management Caregiver Provides Assistance Meal Preparation Meal Preparation Caregiver Provides Assist Agency Sales Management Assistant Agency Sales Management Assistant Caregiver Provides Assist M6 OT- IP Functional Cognition Start: 12/29/23 09:30 Freq: Status: Active Protocol: Document 12/29/23 09:31 [facility] (Rec: 12/29/23 09:47 [facility] [id number]) Cognitive Factors Limiting Selfcare Function Cognitive Ability Level of Alertness Alert Patient Orientation Name,Age,Birthday,Month,Year, Place,Situation Attention Span Ability Capable of Focused Attention, Capable of Sustained Attention Ability to Follow Commands Able to Follow One Step Commands Memory Description Short Term Impaired,Working Impaired Safety Awareness Underestimates Need for Assistance Cognitive Tests SLUMS Pt scored 22/30 which implies mild neurocognitive disorder. Pt thought it was instead of , pt able to recall 2/5 objects after time passed, pt not able to write the numbers of the clock with appropriate spacing and not able to draw the hour hands on the clock as did not attempt. Cognitive Comments Cognitive Assessment Comments Pt able to sequence through basic ADL's but will need supervision for completeness. Pt needs vc to keep the FWW in front of him at all times. OT- Vision and Hearing OT- Hearing Assessment OT- Hearing Assessment Hearing Impaired,Use of Hearing Aids OT- Vision Assessment Visual Acuity Glasses All The Time Visual Attentiveness WFL Occular Pursuits WFL Visual Convergence WFL Visual Nolasco WFL Diplopia Absent M7 OT- IP Mobility and Balance Start: 12/29/23 09:30 Freq: Status: Active Protocol: Document 12/29/23 09:31 [facility] (Rec: 12/29/23 09:47 [facility] [id number]) OT-Transfer Assessment Sit to and From Stand Sit to and from Stand Standby Assistance,Contact Guard Assistance Transfers Transfer Ability Standby Assistance,Contact Guard Assistance Technique Transfer Destination Chair,Toilet Transfer Technique Stand Step Pivot Devices Transfer Assistive Devices Gait Belt,Front Wheeled Walker Comments Mobility Comments Pt from CGA to close SBA for sit to stand and walking with the FWW. Mainly vc to use the FWW at all times. Pt tends to want to put the walker aside when closer to his destination such as recliner or toilet. OT- Balance Assessment Sitting Balance and Reactions Static Sitting Balance Ability Good Dynamic Sitting Balance Ability Good Standing Balance and Reactions Static Standing Balance Ability Fair Dynamic Standing Balance Ability Fair M8 OT- IP Objective Assessments Start: 12/29/23 09:30 Freq: Status: Active Protocol: Document 12/29/23 09:31 [facility] (Rec: 12/29/23 09:47 [facility] [id number]) OT Gross Range of Motion Upper Extremity Range of Motion Assessment Left Impaired OT Strength Upper Extremity Strength Assessment Bilaterally Impaired Comments Strength Comments RUE 4-/5 to 4/5, LUE 3-/5 to 4 /5 distally. OT- Coordination Assessment Upper Extremity Finger to Nose Test Within Functional Limits M9 OT- IP Assessment and Plan Start: 12/29/23 09:30 Freq: Status: Active Protocol: Document 12/29/23 09:31 [facility] (Rec: 12/29/23 09:47 [facility] [id number]) OT Summary Assessment and Plan Potential Rehabilitation Potential Good Analytic Complexity at Evaluation Moderate Summary OT Impairments Pain,Balance,Functional Cognition,Functional Mobility, Dressing,Toileting,Bathing, Toilet Transfers,Shower Transfers,Activity Tolerance Progress Towards Goals Progressing Toward Goals Assessment Summary Pt MOD complexity and main barriers are steps, balance, and decreased safety awareness . Pt scored 22/30 on the SLUMS which implies mild neurocognitive disorder for his cognition. Pt will benefit from 24/7 available assist and home health. Goals Self-Feeding Goal Independent Grooming Goal Independent Dressing Goal Independent Toileting Goal Independent Bathing Goal Standby Assistance Toilet Transfer Goal Independent Shower Transfer Goal Standby Assistance Days to Meet Goals 5 Frequency of Treatment Frequency Of Treatment Once a Day Treatment Plan OT Treatment Plan ADL Training,Functional Mobility,Patient/Family Education,Discharge Planning Discharge Recommendations OT Discharge Recommendations Home with 24/7 Assist Available,Home Health Transportation Needs at Discharge Private Vehicle
--- NOTE | 2023-12-29 10:43 | PT.IPTN ---
Physical Therapy Treatment Note M2 PT-IP Current Condition Start: 12/28/23 16:26 Freq: NEEDED Status: Active Protocol: Document 12/28/23 15:42 AB (Rec: 12/28/23 16:42 AB [id number]) Physical Therapy Current Condition Current Condition Evaluation Date 12/28/23 Treatment Diagnosis hyponatremia; CHF; difficulty in walking Onset Date 12/28/23 M3 PT-IP Subjective Start: 12/28/23 16:26 Freq: NEEDED Status: Active Protocol: Document 12/29/23 11:01 TS (Rec: 12/29/23 11:11 TS [id number]) Subjective Physical Therapy Visit Type Type Treatment Note Visit Start Time 10:43 Visit Stop Time 11:02 Number of SOFTWARE INTEGRATOR Visits 1 Physical Therapy Visit Comments Patient Comments Pt found resting in chair, spouse in room, pt is confused , spouse reports pt is having less SOB today, he is agreeable to PT. M4 PT-IP Mobility and Gait Start: 12/28/23 16:26 Freq: NEEDED Status: Active Protocol: Document 12/29/23 11:01 TS (Rec: 12/29/23 11:11 TS [id number]) PT-Transfer Assessment Sit to and From Stand Sit to and from Stand Standby Assistance Equipment Transfer Assistive Device Gait Belt,Front Wheeled Walker Orthotic/Prosthetic Devices or Brace: No Comments Mobility Comments STS from chair SBA with no AD, pt is slighlty unsteady in standing. He ambulated ~150' CGA with no AD, pt has x1 LOB and requires use of lopes to correct. Pt has some SOB, SPo2 97% on RA. He performed stand ex of mini squats, marches and heel/toe ups. He performed stairs x5 with single rail support CGA, reports some fatigue. Pt was left in chair, all needs met. Gait Assessment Gait Gait Assistance Required: Contact Guard Assist,Minimum Assistance Distance (Feet) 150 Able to Maintain Weight Bearing Status Yes During Gait Assistive Devices Assistive Device None,Gait Belt Orthotic/Prosthetic Devices or Brace: No Gait Deviations General Gait Pattern Ataxic,Decreased Stride Length ,Decreased Feet Clearance,Step -to Gait Factors Limiting Gait Function Factors Limiting Gait Function Decreased Activity Tolerance, Decreased Strength,Difficulty Following Directions,Poor Balance,Poor Safety Awareness Stair Climbing Assessment Evaluation Level of Assist On Stairs Contact Guard Assistance,1 Person Assistance Devices Stair Climbing Assistive Devices Right Railing Technique/Endurance Stair Climbing Direction Ascend and Descend Stair Climbing Technique Step to Step Number of Steps Climbed 5 PT-Balance Assessment Sitting Balance and Reactions Static Sitting Balance Ability Good Dynamic Sitting Balance Ability Good Standing Balance and Reactions Static Standing Balance Ability Fair Dynamic Standing Balance Ability Fair Device Used without AD M5 PT-IP Objective Assessments Start: 12/28/23 16:26 Freq: NEEDED Status: Active Protocol: Document 12/28/23 15:42 AB (Rec: 12/28/23 16:42 AB [id number]) Orientation Orientation/Cognition Level of Alertness Alert Orientation Name,Place,Situation Language Function Ability Hard of Hearing Safety Awareness Decreased Safety Awareness Memory Description Short Term Impaired,Senior Living Impaired Gross Range of Motion Lower Extremity ROM Assessment Within Functional Limits Strength Lower Extremity Strength Assessment Within Functional Limits Muscle Tone Muscle Tone WNL Yes M6 PT-IP Treatment Start: 12/28/23 16:26 Freq: NEEDED Status: Active Protocol: Document 12/29/23 11:01 TS (Rec: 12/29/23 11:11 TS [id number]) Physical Therapy Treatment Education Education Provided Safety M7 PT-IP Assessment and Plan Start: 12/28/23 16:26 Freq: NEEDED Status: Active Protocol: Document 12/29/23 11:01 TS (Rec: 12/29/23 11:11 TS [id number]) PT Summary Assessment and Plan Potential Rehabilitation Potential Fair Summary Impairments Pain,ROM,Strength,Balance, Coordination,Sensation,Tone, Cognition,Bed Mobility, Transfers,Gait,Activity Tolerance Progress Towards Goals Progressing Toward Goals Assessment Summary Arun is progressing well with his mobility. He progressed his gait to ~150' CGA with no AD. Pt is unsteady at times with no AD, spouse reports he has been using a 4WW at home. He performed stairs x5 with single rail, had no buckling or LOB. He has some SOB with mobility, Spo2 remained in mid 90's throughout session. PT is recommending home with assist and HHPT. Goals Bed Mobility Goal Independent Transfer Goal Independent,Front Wheeled Walker Gait Goal Independent,Front Wheel Walker Gait Distance 300 Other Goals up/down 2 steps without rails SBA up/down 13 steps L rail ascending SBA improve transfers and ambulation using LRAD ~ 250 ft SBA Days to Meet Goals 10 Frequency of Treatment Frequency Of Treatment Once a Day Treatment Plan Physical Therapy Treatment Plan Bed Mobility Training,Transfer Training,Gait Training, Therapeutic Exercise,Balance Retraining,Discharge Planning, Hot or Cold Pack,Neuromuscular Re-ed,Coordination Retraining Precautions Other Precautions fall; BP Recommendations To Nursing Amount of Assist Needed Standby Assistance,1 Person Assist Discharge Recommendations PT Discharge Recommendations Home with Assistance,Home Health,Outpatient PT Transportation Needs at Discharge Private Vehicle
[2023-12-29 12:00] VITALS: BP 149/68; PULSE 79; RESP 20; TEMP 36.8; O2SAT 96
--- NOTE | 2023-12-29 12:27 | PM.DS.1 ---
History of Present Illness History of Present Illness Date Patient Seen: 12/29/23 Time Patient Seen: 12:27 Chief complaint: dizzy, lightheaded, sent by Uro. low bp Narrative: Per admitting provider, Arun Barajas is an 78yo M with PMH of hypertension, dyslipidemia, single kidney, chronic kidney disease, recent diagnosis of PFO, seizures, and dementia who presents with worsening dypsnea, LE swelling and weakness. Patient is demented so history obtained from . She states that he has had progressive shortness of breath and weakness with swelling in his legs over the past couple of weeks. He had a chronic Espinoza removed in urology clinic this morning a sent to the ED after provider noted these symptoms. He was recently having some hematuria in the Espinoza catheter so his Eliquis and aspirin was held the past few days. He has otherwise been doing ok at home with home health coming. He notes no chest pain, NV, abd pain or diarrhea. Discharge Providers Provider Date of admission: 12/28/23 13:27 Discharge Date: 12/29/23 Primary care physician: Brigette Ceron MD Consults: 12/28/23 12:45 Consult to Occupational Therapy Evaluate & Treat Comment: Physician Instructions: Evaluate and treat Consult to Physical Therapy Evaluate & Treat Comment: Physician Instructions: Evaluate and Treat Discharge provider: Luis A Muniz DO Summary Hospital Course Discharge Diagnosis: # HFpEF exacerbation, acute on chronic # hyponatremia # dyspnea, weakness # dementia # HTN # PFO and prior TIA # persistent A-fib # seizures # depression # HLD # BPH Hospital Course: This is an 78 year old male with PMH of CHFpEF, PFO, prior TIA< seizure, persistent afib, depression, HLD, BPH, cognitive impairment who was admitted for hypervolemic hypernatremia in the setting of CHF exacerbation. Sodium level improved to 128 the day after admission, he improved more quickly than anticipated. After improvement in sodium patient reported no symptoms and marked improvement in his legs, he and his wished to discharge home. Risk benefit discussion including continued stay for further diuresis and further improvement in sodium from 128 was discussed, but they continued to wish for discharge home. He did well with physical and occupational therapies. 20 mg BID of toresemide was added to his home medications (diuresed with 40 mg IV BID furosemide here), and follow up with primary care or cardiology for continued management and repeat chemistry panel is recommended for next week. Time Spent with Patient Time spent: Greater than 30 minutes Exam Vital Signs (past 8 hours): - 12/29/23 04:57 12/29/23 07:00 12/29/23 07:38 Temperature 98.9 F 98.6 F Pulse Rate 80 76 Respiratory Rate 19 21 Blood Pressure 153/75 H 144/62 H Pulse Oximetry 94 94 Oxygen Delivery Method Room Air Oxygen Flow Rate 0 0 Oxygen Delivery Method Room Air Oxygen Flow Rate 0 Narrative Exam Narrative: GEN: no acute distress, demented HEENT: moist mucous membranes, PERRL NECK: trachea midline, no JVD CV: irregularly irregular, no murmurs PULM: bibasilar rales present ABD: soft, nontender, nondistended, no organomegaly EXT: warm and well perfused with 1+ edema b/l LE NEURO: awake, alert, oriented, no focal deficits Objective Labs 12/29/23 04:44 12/29/23 04:44 Labs: Laboratory Results - last 24 hr 12/28/23 12/28/23 12/28/23 15:00 15:30 16:10 WBC RBC Hgb Hct MCV MCH MCHC RDW Plt Count Neut % (Auto) Lymph % (Auto) [place] % (Auto) Eos % (Auto) Baso % (Auto) Neut # (Auto) Lymph # (Auto) [place] # (Auto) Eos # (Auto) Baso # (Auto) Sodium Potassium Chloride Carbon Dioxide BUN Creatinine Estimated GFR BUN/Creatinine Ratio Glucose Calcium Urine Color Yellow Urine Appearance Clear Urine pH 6.0 Ur Specific [place]ane 1.010 Urine Protein Negative Urine Glucose (UA) Negative Urine Ketones Negative Urine Occult Blood 3+ H Urine Nitrate Negative Urine Bilirubin Negative Urine Urobilinogen 1.0 Ur Leukocyte Esterase Trace H Urine RBC 10-30/hpf H Urine WBC 1-5/hpf Ur Squamous Epith Cells 0-1 /hpf Urine Bacteria Occasional (0-1) Ur Culture Indicated? Specimen cultured Vol Urine Centrifuged 10ml (spun) U Random Total Protein 32 H Ur Random Sodium < 5 L Urine Creatinine 59.82 Protein/Creatinin Ratio 0.53 12/28/23 12/29/23 18:02 04:44 WBC 7.6 RBC 3.15 L Hgb 10.1 L Hct 29.3 L MCV 92.9 MCH 32.1 MCHC 34.5 RDW 13.7 Plt Count 261 Neut % (Auto) 75.7 H Lymph % (Auto) 10.3 L [place] % (Auto) 9.4 Eos % (Auto) 4.1 H Baso % (Auto) 0.5 Neut # (Auto) 5800 Lymph # (Auto) 800 L [place] # (Auto) 700 Eos # (Auto) 300 Baso # (Auto) 0 Sodium 124 L 128 L Potassium 4.0 Chloride 98 Carbon Dioxide 24 BUN 22 H Creatinine 1.18 Estimated GFR > 60 BUN/Creatinine Ratio 18.6 Glucose 86 Calcium 8.5 Urine Color Urine Appearance Urine pH Ur Specific [place] Urine Protein Urine Glucose (UA) Urine Ketones Urine Occult Blood Urine Nitrate Urine Bilirubin Urine Urobilinogen Ur Leukocyte Esterase Urine RBC Urine WBC Ur Squamous Epith Cells Urine Bacteria Ur Culture Indicated? Vol Urine Centrifuged U Random Total Protein Ur Random Sodium Urine Creatinine Protein/Creatinin Ratio PFSH Medical History Bladder neck contracture Hematuria Lower urinary tract symptoms (LUTS) Erectile dysfunction BPH loc w/o ur obs/LUTS CVA (cerebral vascular accident) Peripheral vascular disease Atherosclerosis History of stent insertion of renal artery Renal artery stenosis BPH (benign prostatic hyperplasia) Hypertension Hyperlipidemia Surgical History H/O vasectomy H/O hernia repair Hx of appendectomy S/P TURP Family History Father CVA (cerebral vascular accident) Mother COPD (chronic obstructive pulmonary disease) Sister Adopted Social History household members: spouse lives independently: Yes Smoking Status: Former smoker alcohol intake: former Discharge Plan Discharge Plan Patient Disposition: Home Discharge orders & Medications Prescriptions: New torsemide 20 mg tablet 20 mg PO BID 30 Days Qty: 60 0RF Continued tamsulosin 0.4 mg capsule 0.4 mg PO QPM Qty: 90 3RF losartan 50 mg tablet 50 mg PO BID Eliquis 5 mg Tablet 5 mg PO BID Qty: 60 0RF Rx Instructions: stopped 2 days ago due to hematuria aspirin 81 mg Tablet,Delayed Release (Dr/Ec) 81 mg PO DAILY Qty: 30 0RF Rx Instructions: stopped 2 days ago due to hematuria triamcinolone acetonide 0.5 % cream 1 applic topical BID PRN (Reason: Rash) levetiracetam 500 mg tablet 500 mg PO BID Qty: 60 0RF quetiapine [Seroquel] 25 mg tablet 25 mg PO BEDTIME 30 Days Qty: 30 0RF Rx Instructions: Started on this last admission and has not had since d/c 2 weeks ago diltiazem HCl 120 mg capsule,ext.rel 24h degradable 120 mg PO DAILY rosuvastatin 10 mg tablet 10 mg PO QPM amlodipine 10 mg tablet 10 mg PO QPM sertraline 50 mg tablet 50 mg PO DAILY vitamin E mixed 1,000 unit capsule 50,000 unit PO WEEKLY Rx Instructions: weekly dose. Discontinued clonidine HCl [Catapres] 0.2 MG tablet 0.2 mg PO BID Qty: 0 No Action nitrofurantoin monohyd/m-cryst [Macrobid] 100 mg capsule 100 mg PO BID Qty: 14 0RF Rx Instructions: must administer with a meal/food Follow up/Referrals: Brigette Ceron MD [Primary Care Provider] - Visit Report/Discharge Packet Instructions: Torsemide, DI for Dizziness-Nonvertigo Stand Alone Forms: Congestive Heart Failure, Patient Portal/API, Stroke Signs & Symptoms, Against Medical Advice Discharge Data Primary Care Provider: Brigette Ceron Attending Provider: Leonel Awad Admit Date/Time: 12/28/23 13:27 Quality VTE Deep Vein Thrombosis/Pulmonary Embolism Present on Admission: No
--- NOTE | 2023-12-29 13:05 | CM.DANOTE ---
Initial DCP Assessment Visit Note Reviewed EMR and team rounds for pt's medical status updates. Went to meet with pt, however he was not in the room. Called pt's and left her a message that this FORECAST ANALYST sent new orders for resumption of care to [facility], who he established with after his last hospitalization. Pt resides at home with his spouse, he has advanced dementia, ambulates with a walker when he's at his best baseline. Spouse will transport him home this afternoon. No further DCP needs identified at this time. Payor: [employer] PCP: Dr. Brigette Ceron Pt is a 78 year-old M re-admitted for the third time within the last 30-days for similar concerns. Pt has a PMH of hypertension, dyslipidemia, single kidney, chronic kidney disease, seizures, and dementia. He presented to the ED yesterday evening with wosening SOB, weakness, and swelling in his legs over the last few weeks. He had his lr catheter removed yesterday morning in Urology, was found to have dizziness and hypotension, so was sent to the ED for further evaluation. He was diuresed and monitored, has shown improvement to his baseline, and was medically cleared for d/c back home. No DCP needs were identified during his stay for assistance. Discharge Planning/Care Management CM Discharge Assessment Start: 12/29/23 12:45 Freq: Status: Active Protocol: Document 12/29/23 12:45 DPL (Rec: 12/29/23 13:05 DPL [id number]) Discharge Planning Assessment Assigned Senior Materials Planner MILY Lloyd Advance Directives? Yes Advance Directives on File No History Provided By Family Member,Medical Record Has Patient been admitted in last 30 Yes days? Comment 12/07-12/11/2312/10-12/14/23 Prior Living Arrangements House Household Members spouse Type of transporation used prior to Relies on Others admit Independent with ADL's No: modified independent with 4WW Is patient alert and oriented? No Needs Assistance With Bathing,Grooming,Meal Prep, Managing Medications,Home Chores / Shopping Caregiver for Another No Community Services used prior to Physical Therapy,Home Health admission: Nurse DME Already Rented / Owned FWW / Walker Patient/Family Preference Home with Home Health Comment Pt is already established with [facility]. Barriers to Discharge No Discharge Plan Home Community Services Hospice,Home Health Nurse Transportation Arrangement Spouse Referrals Initiated Home Health If patient plan is home with home health Yes : Has signed face to face form been completed? Review Status In Process Please Provide Date Initial DC 12/29/23 Assessment Was Performed
== END 2023-12-29 13:35 | disposition home or self-care (01) ==
LOC: ED 12:33 → AC 12:58
PROVIDERS: Admitting Provider Student in an Organized Health Care Education/Training Program; Emergency Provider Emergency Medicine; PCP Internal Medicine; Referring Provider Emergency Medicine; Visit Provider Student in an Organized Health Care Education/Training Program
DX: I13.0 Hypertensive heart and chronic kidney disease with heart failure and stage 1 through stage 4 chronic kidney disease, or unspecified chronic kidney disease (principal); I50.33 Acute on chronic diastolic (congestive) heart failure; N18.9 Chronic kidney disease, unspecified; E87.1 Hypo-osmolality and hyponatremia; Z86.73 Personal history of transient ischemic attack (TIA), and cerebral infarction without residual deficits; I48.19 Other persistent atrial fibrillation; F03.90 Unspecified dementia, unspecified severity, without behavioral disturbance, psychotic disturbance, mood disturbance, and anxiety
CPT/HCPCS: 36415; 71045; 80048; 80053; 81001; 82550; 82570; 83690; 83735; 83880; 84156; 84295; 84300; 84484; 85025; 85610; 85730; 87086; 93005; 96374; 96376; 97162; 97166; 97530; 97535; 99284; G0378; J1940

== ENCOUNTER → 2024-01-13 14:13 | Outpatient (ROUT) | payer OTHER, SELFPAY ==
[2023-12-28 14:37] VITALS: BMI 31.7
[2024-01-13 14:22] LABS: Add Manual Diff / Slide Review NO; Basophils Absolute Auto 100 /uL (0-100); Eosinophils Absolute Auto 200 /uL (0-450); Hematocrit 37.3 % (41-53); Hemoglobin 12.6 g/dL (13.5-17.5); Lymphocytes Absolute Auto 900 /uL (1100-4500); Lymphocytes Percent Auto 11.4 % (25-40); Mean Corpuscular HGB Conc 33.9 % (30-36); Mean Corpuscular Volume 94.6 fL (80-100); Monocytes Absolute Auto 600 /uL (0-900); Neutrophils Absolute Auto 6100 /uL (1500-7000); Neutrophils Percent Auto 76.6 % (50-75); Platelet Count 332 X10^3/uL (150-400); Red Blood Cell Count 3.95 X10^6/uL (4.5-5.9); Red Cell Distribution Width 13.9 % (11.6-14.8); White Blood Cell Count 7.9 X10^3/uL (4.5-11.0)
[2024-01-13 14:32] LABS: Appearance Urine UA CLEAR; Bilirubin Urine UA NEGATIVE (NEGATIVE); Color Urine UA YELLOW; Glucose Urine UA NEGATIVE (Negative); Ketones Urine UA NEGATIVE (NEGATIVE); Leukocyte Esterase Urine UA NEGATIVE (NEGATIVE); Nitrite Urine UA NEGATIVE (Negative); Occult Blood Urine UA TRACE-INTACT (Negative); Protein Urine UA TRACE (Negative); Urobilinogen Urine UA 0.2 E.U./dL (0.2); pH Urine UA 5.5 (4.5-8.0)
[2024-01-13 14:35] LABS: Alanine Aminotransferase 27 IU/L (<50); Albumin 4.7 g/dL (3.5-5.0); Albumin Globulin Ratio 1.3 (1.0-2.8); Alkaline Phosphatase 64 U/L (38-126); Aspartate Aminotransferase 43 IU/L (17-59); BUN Creatinine Ratio 26.2 (6-22); Blood Urea Nitrogen 53 mg/dL (9-20); Calcium 9.3 mg/dL (8.4-10.2); Carbon Dioxide 28 mmol/L (22-32); Chloride 97 mmol/L (98-107); Estimated Glomerular Filt Rate 33 mL/min (>60); Globulin 3.7 g/dL (1.7-4.1); Glucose 114 mg/dL (80-110); HEMOLYSIS < 15 (0-50); Potassium 4.5 mmol/L (3.4-5.1); Sodium 132 mmol/L (137-145); Total Protein 8.4 g/dL (6.3-8.2)
[2024-01-13 14:44] LABS: NT-proBNP (BNP-Adult 18+) 2490 pg/mL (<450)
[2024-01-13 15:05] LABS: Bacteria Urine Occasional (0-1); Culture Indicated Urine Cult Not Indicated; Hyaline Casts Urine 0-1/LPF; Mucus Urine 1+ (Negative); RBC Urine 0-1/HPF (0-5/HPF); Squamous Epithelial Cell Urine 1-5 /HPF (0-5/HPF); Urine Volume 10mL (spun); WBC Urine 0-1/HPF (0-5/HPF)
== END ==
PROVIDERS: PCP Internal Medicine; Visit Provider Physician Assistant
DX: E87.1 Hypo-osmolality and hyponatremia (principal); R41.0 Disorientation, unspecified
CPT/HCPCS: 80053; 81001; 83880; 85025

== ENCOUNTER 2024-01-14 10:02 | Emergency (ER) | payer OTHER, SELFPAY ==
[2023-12-28 14:37] VITALS: BMI 31.7
--- NOTE | 2024-01-14 11:01 | DI.RAD.S_ITS ---
PROCEDURE: XR CHEST 1V INDICATIONS: Prior history of chest pain TECHNIQUE: One view of the chest was acquired. COMPARISON: [facility], CR, XR CHEST 1V, 12/11/2023, 13:10. [facility], CR, XR CHEST 1V, 12/08/2023, 12:20. [facility], CR, XR CHEST 1V, 12/28/2023, 9:23. FINDINGS: Surgical changes and devices: None. Lungs and pleura: An incomplete inspiratory result is noted, causing a crowded appearance to the lung markings. No focal infiltrates are seen. The previously seen interstitial prominence has improved. No pneumothorax or significant pleural effusions are seen. Mediastinum: Mediastinal contours appear normal. Heart size is mildly enlarged. Atherosclerotic calcification of the aortic arch is noted. Bones and chest wall: No suspicious bony lesions. Age-appropriate bony degenerative changes are seen. Overlying soft tissues appear unremarkable. IMPRESSION: There is a mild amount of interstitial prominence seen, which is clearly improved compared to the 12/28/2023 plain film study. Mild cardiomegaly. Dictated by: Raúl Chandra M.D. on 01/14/2024 at 10:36 Approved by: Raúl Chandra M.D. on 01/14/2024 at 10:37
--- NOTE | 2024-01-14 17:36 | PC.NURSE ---
[facility] downtime 01/13/24 ~1999 - please see paper downtime charting
[2024-01-14 19:59] LABS: Add Manual Diff / Slide Review NO; Basophils Absolute Auto 0 /uL (0-100); Basophils Percent Auto 0.5 % (0-2); Eosinophils Absolute Auto 100 /uL (0-450); Eosinophils Percent Auto 1.6 % (2-4); Hematocrit 36.6 % (41-53); Hemoglobin 12.5 g/dL (13.5-17.5); Lymphocytes Absolute Auto 800 /uL (1100-4500); Lymphocytes Percent Auto 10.4 % (25-40); Mean Corpuscular HGB Conc 34.1 % (30-36); Mean Corpuscular Hemoglobin 32.1 PG (26-34); Mean Corpuscular Volume 94.1 fL (80-100); Monocytes Absolute Auto 700 /uL (0-900); Monocytes Percent Auto 9.2 % (3-14); Neutrophils Absolute Auto 5800 /uL (1500-7000); Neutrophils Percent Auto 78.3 % (50-75); Platelet Count 309 X10^3/uL (150-400); Red Blood Cell Count 3.89 X10^6/uL (4.5-5.9); Red Cell Distribution Width 13.7 % (11.6-14.8); White Blood Cell Count 7.4 X10^3/uL (4.5-11.0)
[2024-01-14 20:00] LABS: INR 1.5 (0.9-1.3); PTT Partial Thromboplastin Tim 37 SECONDS (25.1-36.5); Prothrombin Time 17.5 SECONDS (9.4-12.5)
[2024-01-14 20:01] LABS: Alanine Aminotransferase 28 IU/L (<50); Albumin 4.7 g/dL (3.5-5.0); Albumin Globulin Ratio 1.2 (1.0-2.8); Alkaline Phosphatase 57 U/L (38-126); Ammonia (NH3) < 9 umol/L (9-30); Aspartate Aminotransferase 48 IU/L (17-59); BUN Creatinine Ratio 30.6 (6-22); Bilirubin Total 1.3 mg/dL (0.2-1.3); Blood Urea Nitrogen 59 mg/dL (9-20); Calcium 9.4 mg/dL (8.4-10.2); Carbon Dioxide 24 mmol/L (22-32); Chloride 95 mmol/L (98-107); Creatine Kinase 296 U/L (55-170); Estimated Glomerular Filt Rate 35 mL/min (>60); Globulin 3.8 g/dL (1.7-4.1); Glucose 124 mg/dL (80-110); Lactate (Lactic Acid) 1.2 mmol/L (0.7-2.1); Potassium 4.8 mmol/L (3.4-5.1); Sodium 129 mmol/L (137-145); Total Protein 8.5 g/dL (6.3-8.2); Troponin I 0.014 ng/mL (0.01-0.034)
[2024-01-14 20:02] LABS: HEMOLYSIS 132 (0-50)
[2024-01-14 20:03] LABS: UR Morphine/Opiate cutoff 300 Negative (Negative); Ur Creatinine Normal (Normal); Ur Specific Gravity Normal (Normal); Urine Amphetamines Negative (Negative); Urine Barbiturates Negative (Negative); Urine Benzodiazepines Negative (Negative); Urine Cocaine Negative (Negative); Urine MDMA Negative (Negative); Urine Methadone Negative (Negative); Urine Methamphetamines Negative (Negative); Urine Oxycodone Negative (Negative); Urine Phencyclidine Negative (Negative); Urine Tetrahydrocannabinol Negative (Negative); Urine Tricyclic Antidepressant Negative (Negative); Urine pH Normal (Normal)
[2024-01-14 20:04] LABS: Appearance Urine UA Clear; Bacteria Urine None Seen; Bilirubin Urine UA Negative (NEGATIVE); Color Urine UA Yellow; Glucose Urine UA NEGATIVE (Negative); Ketones Urine UA NEGATIVE (NEGATIVE); Leukocyte Esterase Urine UA NEGATIVE (NEGATIVE); Nitrite Urine UA NEGATIVE (Negative); Occult Blood Urine UA TRACE-INTACT (Negative); Protein Urine UA TRACE (Negative); RBC Urine None Seen (0-5/HPF); Squamous Epithelial Cell Urine None Seen (0-5/HPF); Urine Volume 10mL (spun); Urobilinogen Urine UA 0.2 E.U./dL (0.2); WBC Urine None Seen (0-5/HPF); pH Urine UA 5.5 (4.5-8.0)
[2024-01-14 20:05] LABS: Culture Indicated Urine Cult Not Indicated
== END 2024-01-14 13:30 | disposition home or self-care (01) ==
PROVIDERS: Emergency Provider Emergency Medicine; PCP Internal Medicine
DX: R41.0 Disorientation, unspecified (principal); R45.1 Restlessness and agitation; I48.91 Unspecified atrial fibrillation
CPT/HCPCS: 71045; 80053; 80305; 81001; 82140; 82550; 83605; 84484; 85025; 85610; 85730; 93005; 93010; 99284

== ENCOUNTER 2024-01-16 06:24 | Emergency (ER) | payer OTHER, SELFPAY ==
[2023-12-28 14:37] VITALS: BMI 31.7
[2024-01-16 06:28] VITALS: BP 140/72; PULSE 82; RESP 16; TEMP 36.9; O2SAT 97
[2024-01-16 06:30] VITALS: BP 140/72; PULSE 81; RESP 16; O2SAT 98
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
[2024-01-16 07:00] VITALS: PULSE 77
[2024-01-16 07:09] LABS: Add Manual Diff / Slide Review NO; Basophils Absolute Auto 0 /uL (0-100); Basophils Percent Auto 0.6 % (0-2); Eosinophils Absolute Auto 200 /uL (0-450); Eosinophils Percent Auto 3.1 % (2-4); Hematocrit 35.5 % (41-53); Lymphocytes Absolute Auto 900 /uL (1100-4500); Mean Corpuscular HGB Conc 33.7 % (30-36); Mean Corpuscular Hemoglobin 31.9 PG (26-34); Mean Corpuscular Volume 94.6 fL (80-100); Monocytes Absolute Auto 700 /uL (0-900); Monocytes Percent Auto 9.7 % (3-14); Neutrophils Absolute Auto 5000 /uL (1500-7000); Neutrophils Percent Auto 73.6 % (50-75); Platelet Count 281 X10^3/uL (150-400); Red Blood Cell Count 3.75 X10^6/uL (4.5-5.9); Red Cell Distribution Width 13.5 % (11.6-14.8); White Blood Cell Count 6.8 X10^3/uL (4.5-11.0)
[2024-01-16 07:27] LABS: Alanine Aminotransferase 25 IU/L (<50); Albumin 4.2 g/dL (3.5-5.0); Albumin Globulin Ratio 1.3 (1.0-2.8); Alkaline Phosphatase 65 U/L (38-126); Aspartate Aminotransferase 39 IU/L (17-59); BUN Creatinine Ratio 33.1 (6-22); Bilirubin Total 0.9 mg/dL (0.2-1.3); Blood Urea Nitrogen 49 mg/dL (9-20); Carbon Dioxide 25 mmol/L (22-32); Chloride 101 mmol/L (98-107); Estimated Glomerular Filt Rate 48 mL/min (>60); Globulin 3.2 g/dL (1.7-4.1); Glucose 109 mg/dL (80-110); HEMOLYSIS < 15 (0-50); Potassium 4.2 mmol/L (3.4-5.1); Sodium 133 mmol/L (137-145); Total Protein 7.4 g/dL (6.3-8.2)
--- NOTE | 2024-01-16 07:55 | DI.CT.S_ITS ---
PROCEDURE: CT HEAD/BRAIN WO CON INDICATIONS: altered, on thinners TECHNIQUE: Noncontrast 4.5 mm thick angled axial sections acquired from the foramen magnum to the vertex, with coronal and sagittal reformats. For radiation dose reduction, the following was used: automated exposure control, adjustment of mA and/or kV according to patient size. COMPARISON: Located Within [facility], CT, CT HEAD/BRAIN WO CON, 02/19/2019, 10:26. FINDINGS: Image quality: Diagnostic. CSF spaces: Basal cisterns are patent. No extra-axial fluid collections. The ventricles are symmetric in size and shape. Brain: No intracranial bleeds or masses. There is cerebral volume loss for age, with resultant ventricular and sulcal prominence. There are periventricular and deep white matter chronic small vessel ischemic changes. There is intracranial internal carotid artery atherosclerosis. Skull and face: Calvarium and visualized facial bones appear intact, without suspicious lesions. Sinuses: Visualized sinuses and mastoids are clear. IMPRESSION: No acute intracranial pathology. Dictated by: Isauro Spence M.D. on 01/16/2024 at 8:21 Approved by: Isauro Spence M.D. on 01/16/2024 at 8:22
[2024-01-16 08:20] LABS: Ammonia (NH3) < 9 umol/L (9-30)
[2024-01-16 08:52] LABS: Urine Volume 10mL (spun)
[2024-01-16 08:55] LABS: Bacteria Urine None Seen; Culture Indicated Urine Cult Not Indicated; RBC Urine 0-1/HPF (0-5/HPF); Squamous Epithelial Cell Urine None Seen (0-5/HPF); WBC Urine None Seen (0-5/HPF)
[2024-01-16 10:47] VITALS: BP 189/101; PULSE 82; RESP 18; TEMP 36.8; O2SAT 98
--- NOTE | 2024-01-16 13:16 | CM.SWNOTE ---
ED FINISHED GARMENT INSPECTOR Note: Pt is a 78yo male, resident of [facility] with his , presented to the ED due to agitation and memory issues; pt's agitation was towards his this episode, EMS was involved. Pt has a previous medical history of advanced dementia. FINISHED GARMENT INSPECTOR was consulted to connect pt's to resources for caregivers and/or options for placement. At the time of consult, pt was already discharged home with . FINISHED GARMENT INSPECTOR called pt's , Hayde, and introduced self/role. Pt's endorsed hoping for assistance with either respite assistance in the home or admitting pt for memory care during the day. Pt's does not think placement is necessary at this time but reports she gets overwhelmed easily when she first started searching for this information so having support in searching would help. FINISHED GARMENT INSPECTOR connected pt with Nim[facility] Pereira (ph#[phone]), [facility] Adjuster with [facility] so pt can have a liaison with roasterman care facilities in the area as she searches for placement. Pt's confirmed that she is already involved with [facility] and an RN comes to their home every Tuesday. Pt has been discharged from PT/OT services. Pt did not feel adding on Social Work services would be necessary at this time. It was reported that pt's would be interested in a Adult Day Center. FINISHED GARMENT INSPECTOR confirmed that the [facility] is the only Adult Day Program available in [facility] at this time. FINISHED GARMENT INSPECTOR called the [facility] (ph#[phone]) and spoke with Heike Cornelius. It was reported that pt would need to be referred by their PCP for day services. FINISHED GARMENT INSPECTOR discussed this with pt's and they will discuss at follow up appt with PCP, Brigette Ceron, tomorrow 01/16. FINISHED GARMENT INSPECTOR discussed the Family Caregiver Support Program with the [facility] with hopes of connecting for respite services. Pt was interested and consented to this FINISHED GARMENT INSPECTOR referring her to the program. FINISHED GARMENT INSPECTOR referred pt to [facility], spoke with Destini (ph#[phone]); it was reported they will attempt to connect with pt's . Plan: Pt already discharged home, to follow up with PCP tomorrow, 01/16. Pt to connect with [facility] for shelter care placement options, the [facility] for adult day services, and the [facility] for the Family Caregiver Support Program and respite services. VINCENZO Hansen
== END 2024-01-16 10:40 | disposition home or self-care (01) ==
PROVIDERS: Emergency Medicine; Emergency Provider Emergency Medicine; PCP Internal Medicine
DX: F03.911 Unspecified dementia, unspecified severity, with agitation (principal)
CPT/HCPCS: 36415; 70450; 80053; 81003; 81015; 82140; 85025; 99284

== ENCOUNTER → 2024-03-14 07:22 | Outpatient (ROUT) | payer OTHER, SELFPAY ==
[2023-12-28 14:37] VITALS: BMI 31.7
[2024-03-14 08:07] LABS: BUN Creatinine Ratio 22.4 (6-22); Blood Urea Nitrogen 35 mg/dL (9-20); Calcium 9.2 mg/dL (8.4-10.2); Carbon Dioxide 26 mmol/L (22-32); Chloride 100 mmol/L (98-107); Estimated Glomerular Filt Rate 45 mL/min (>60); Glucose 99 mg/dL (80-110); HEMOLYSIS < 15 (0-50); Potassium 4.3 mmol/L (3.4-5.1); Sodium 135 mmol/L (137-145)
== END ==
PROVIDERS: PCP Internal Medicine; Visit Provider Internal Medicine Cardiovascular Disease
DX: I48.0 Paroxysmal atrial fibrillation (principal)
CPT/HCPCS: 36415; 80048

== ENCOUNTER → 2024-04-27 13:11 | Outpatient (CLI) | payer OTHER, SELFPAY ==
[2023-12-28 14:37] VITALS: BMI 31.7
--- NOTE | 2024-04-27 | DI.RAD.S_ITS ---
PROCEDURE: XR KNEE LT 3V INDICATIONS: superficial injury of left knee, pain TECHNIQUE: Three views of the knee were acquired. COMPARISON: None. FINDINGS: Mild degenerative changes of the left knee with joint space narrowing and osteophytes in the medial greater than patellofemoral greater than lateral compartments. No radiographic evidence of fracture, dislocation, knee joint effusion or high attenuation soft tissue foreign body. Mild vascular calcifications. Artifacts from overlying clothing and other extrinsic artifacts partially limit radiographic detail. IMPRESSION: Mild degenerative changes. No radiographic evidence of fracture. Dictated by: Vasile Paz M.D. on 04/27/2024 at 14:05 Approved by: Vasile Paz M.D. on 04/27/2024 at 14:51
== END ==
PROVIDERS: PCP Internal Medicine; Referring Provider Registered Nurse; Visit Provider Registered Nurse
DX: S80.912A Unspecified superficial injury of left knee, initial encounter (principal); M25.562 Pain in left knee
CPT/HCPCS: 73562

== ENCOUNTER → 2024-09-05 06:17 | Outpatient (ROUT) | payer OTHER, SELFPAY ==
[2023-12-28 14:37] VITALS: BMI 31.7
[2024-09-05 08:40] LABS: Add Manual Diff / Slide Review NO; Basophils Absolute Auto 0 /uL (0-100); Basophils Percent Auto 0.4 % (0-2); Eosinophils Absolute Auto 300 /uL (0-450); Eosinophils Percent Auto 4.8 % (2-4); Hematocrit 42.1 % (41-53); Lymphocytes Absolute Auto 1200 /uL (1100-4500); Lymphocytes Percent Auto 17.8 % (25-40); Mean Corpuscular HGB Conc 33.1 % (30-36); Mean Corpuscular Hemoglobin 30.6 PG (26-34); Mean Corpuscular Volume 92.4 fL (80-100); Monocytes Absolute Auto 300 /uL (0-900); Monocytes Percent Auto 4.4 % (3-14); Neutrophils Absolute Auto 5000 /uL (1500-7000); Neutrophils Percent Auto 72.6 % (50-75); Platelet Count 239 X10^3/uL (150-400); Red Blood Cell Count 4.56 X10^6/uL (4.5-5.9); Red Cell Distribution Width 14.2 % (11.6-14.8); White Blood Cell Count 6.9 X10^3/uL (4.5-11.0)
[2024-09-05 08:55] LABS: BUN Creatinine Ratio 19.6 (6-22); Blood Urea Nitrogen 30 mg/dL (9-20); Carbon Dioxide 23 mmol/L (22-32); Chloride 103 mmol/L (98-107); Estimated Glomerular Filt Rate 46 mL/min (>60); Glucose 153 mg/dL (80-110); HEMOLYSIS < 15 (0-50); Magnesium 1.8 mg/dL (1.6-2.3); Phosphorous 3.3 mg/dL (2.3-3.7); Potassium 4.5 mmol/L (3.4-5.1); Sodium 135 mmol/L (137-145)
[2024-09-05 09:10] LABS: Vitamin D 25 Hydroxy (D3) 21.5 ng/mL (30.0-100.0)
[2024-09-06 09:39] LABS: Parathyroid Hormone Int 65 pg/mL (15-65)
== END ==
PROVIDERS: PCP Internal Medicine; Visit Provider Internal Medicine Nephrology
DX: R06.02 Shortness of breath (principal); I48.91 Unspecified atrial fibrillation; N18.31 Chronic kidney disease, stage 3a
CPT/HCPCS: 36415; 80048; 82306; 83735; 83970; 84100; 85025

== ENCOUNTER → 2024-09-06 15:56 | Outpatient (ROUT) | payer OTHER, SELFPAY ==
[2023-12-28 14:37] VITALS: BMI 31.7
[2024-09-06 16:18] LABS: Creatinine Urine Random 42.91 mg/dL
[2024-09-06 16:25] LABS: Microalbumin Urine Random < 0.6 mg/dL (0-1.6)
== END ==
PROVIDERS: PCP Internal Medicine; Visit Provider Physician Assistant
DX: Z13.89 Encounter for screening for other disorder (principal)
CPT/HCPCS: 82043; 82570

== ENCOUNTER → 2024-11-13 12:45 | Outpatient (CLI) | payer OTHER, SELFPAY ==
[2023-12-28 14:37] VITALS: BMI 31.7
--- NOTE | 2024-11-13 12:47 | DI.ECHO.S_ITS ---
[facility] : : [address] : [address] : : [id number] : : Phone: [phone] Echocardiogram Report + + :Name: CRISTOFER JASSO Study Date: 11/13/2024 Height: 69 in : :[facility] ReadingLocation: Weight: 225 lb : : Gender: Male BSA: 2.2 m2 : :: 1945 Age: 79 yrs BP: 141/77 mmHg: :Reason For Study: CLAUDICATION : :Ordering Physician: SONIA, : :CADY Performed By: Lakshmi Iverson : :Referring: CADY SCOTT : + + Interpretation Summary The left ventricle is normal in size and wall thickness. The ejection fraction is estimated to be 55-60%. The right ventricle is normal in size and function. There is mild aortic regurgitation. Compared to the prior echo study, there has been no change in the severity of aortic regurgitation. There is mild tricuspid regurgitation. Compared to the prior echo exam, there has been no change in TR severity. The right ventricular systolic pressure is estimated to be at least 31 mmHg based on an estimated right atrial pressure of 3 mm Hg. Previously 38 mmHg. Compared to the prior echo exam, there has been a decrease in the severity of pulmonary hypertension. Procedure: A two-dimensional transthoracic echocardiogram with color flow and Doppler was performed. The study quality was technically difficult. Comparison is made with the echocardiogram of 11/28/2023. The patient was in atrial fibrillation with heart rates between 74-89 bpm during the exam. The patient had occasional PVCs during the exam. Left Ventricle: The left ventricle is normal in size and wall thickness. There is no thrombus. The ejection fraction is estimated to be 55-60%. There are no focal wall motion abnormalities. Diastolic function could not be accurately assessed due to atrial fibrillation. Right Ventricle: The right ventricle is normal in size and function. Atria: The left atrium is mildly dilated. There has been no significant change since the previous study. Right atrial size is normal. Previous echo positive for PFO by bubble study 11/28/2023. Mitral Valve: The mitral valve leaflets are slightly calcified. There is mild mitral annular calcification. There is mild mitral regurgitation. Aortic Valve: The aortic valve is slightly calcified. The aortic valve is not well visualized. There is no aortic valve stenosis. There is mild aortic regurgitation. Compared to the prior echo study, there has been no change in the severity of aortic regurgitation. Tricuspid Valve: The tricuspid valve is normal. There is mild tricuspid regurgitation. The right ventricular systolic pressure is estimated to be at least 31 mmHg based on an estimated right atrial pressure of 3 mm Hg. Compared to the prior echo exam, there has been no change in TR severity. Compared to the prior echo exam, there has been a decrease in the severity of pulmonary hypertension. Pulmonic Valve: The pulmonic valve is not well seen, but is grossly normal. There is no pulmonic valvular regurgitation. Great Vessels: The aortic root is normal size. The ascending aorta is normal in size. The IVC is of normal diameter and collapses greater than 50% with a sniff. This suggests a low right atrial pressure of 3 mm Hg. Pericardium/ Pleura There is no pericardial effusion. There is no pleural effusion. MMode/2D Measurements & Calculations LVIDd: 4.0 cm LVOT diam: 2.2 cm LVIDs: 2.6 cm Ao root diam: 4.0 cm FS: 35.3 % asc Aorta Diam: 3.7 cm IVSd: 0.98 cm Ao Arch Diam (Prox Trans): 3.1 cm LVPWd: 1.1 cm LV mace. diameter/BSA (cm/m^2): 1.9 LV sys. diameter/BSA (cm/m^2): 1.2 LA A2 area: 24.6 cm2 RA long axis: 6.2 cm LA A4 area: 23.4 cm2 RA area: 20.5 cm2 LA length (vol): 6.2 cm RA vol: 57.3 ml LA vol: 78.3 ml RA : 26.4 ml/m2 LA vol index: 36.0 ml/m2 IVC diam: 2.0 cm RVD1 (basal): 3.2 cm RVD2 (mid): 2.4 cm Doppler Measurements & Calculations Ao V2 max: 125.7 cm/sec LVOT Max Adam: 72.5 cm/sec Ao V2 mean: 85.8 cm/sec LV V1 max P.1 mmHg Ao max P.3 mmHg LV V1 VTI: 14.5 cm Ao mean P.3 mmHg QUYNH(I,D): 2.4 cm2 Ao V2 VTI: 23.4 cm QUYNH(V,D): 2.2 cm2 sev ratio: 0.62 QUYNH indexed to BSA (cm^2/m^2): 1.1 AI P1/2t: 838.3 msec AI dec slope: 143.9 cm/sec2 MV E max adam: 105.9 cm/sec TR max adam: 262.9 cm/sec MV A max adam: 0.72 cm/sec TR max P.6 mmHg MV E/A: 146.2 PA V2 max: 68.9 cm/sec Med Peak E' Adam: 7.7 cm/sec PA V2 mean: 47.1 cm/sec E/E' med: 13.7 PA mean P.99 mmHg Lat Peak E' Adam: 10.4 cm/sec PA pr(Accel): 35.3 mmHg E/E' lat: 10.2 E/e' average: 12.0 MV dec time: 0.18 sec SV(LVOT): 55.7 ml Reading Physician:12:10 PM
--- NOTE | 2024-11-13 12:47 | DI.US.S_ITS ---
PROCEDURE: US ARTERIAL DUPLEX LE BI INDICATIONS: CLAUDICATION TECHNIQUE: Color and pulse Doppler interrogation was performed of both lower extremity arterial systems, with image documentation. COMPARISON: None. FINDINGS: Right lower extremity: Common femoral artery: 80.8 cm/sec, with triphasic flow. Deep femoral artery: 70.9 cm/sec, with biphasic flow. Proximal superficial femoral artery: 88.6 cm/sec, with biphasic flow. Mid superficial femoral artery: 107.5 cm/sec, with biphasic flow. Distal superficial femoral artery: 57 cm/sec, with biphasic flow. Popliteal artery: 57.3 cm/sec, with biphasic flow. Posterior tibial artery: 41.2 cm/sec, with biphasic flow. Anterior tibial artery/dorsalis pedis: 54.3 cm/sec, with biphasic flow. Blank-scale imaging description: No significant atheromatous disease is seen. Left lower extremity: Common femoral artery: 151.7 cm/sec, with biphasic flow. Deep femoral artery: 69.9 cm/sec, with biphasic flow. Proximal superficial femoral artery: 105.7 cm/sec, with biphasic flow. Mid superficial femoral artery: 101.1 cm/sec, with biphasic flow. Distal superficial femoral artery: 69.9 cm/sec, with biphasic flow. Popliteal artery: 50 cm/sec, with biphasic flow. Posterior tibial artery: 93.4 cm/sec, with biphasic flow. Anterior tibial artery/dorsalis pedis: 26.6 cm/sec, with biphasic flow. Blank-scale imaging description: No significant atheromatous disease is seen. IMPRESSION: Right * 1-19% stenosis involving the right mid superficial femoral artery. Left * 20-49% stenosis involving the left common femoral artery and posterior tibial artery. * 1-19% stenosis involving the left proximal and mid superficial femoral artery. Dictated by: Kodi Smith M.D. on 11/14/2024 at 20:11 Approved by: Kodi Smith M.D. on 11/14/2024 at 20:16
== END ==
LOC: US 12:46
PROVIDERS: PCP Internal Medicine; Referring Provider Nurse Practitioner Acute Care; Visit Provider Nurse Practitioner Acute Care
DX: I08.3 Combined rheumatic disorders of mitral, aortic and tricuspid valves (principal); I70.213 Atherosclerosis of native arteries of extremities with intermittent claudication, bilateral legs; R06.02 Shortness of breath
CPT/HCPCS: 93306; 93925

== ENCOUNTER → 2024-11-21 06:18 | Outpatient (ROUT) | payer OTHER, SELFPAY ==
[2023-12-28 14:37] VITALS: BMI 31.7
[2024-11-21 08:34] LABS: Hemoglobin A1C% w Est Avg Glu 5.7 % (4.0-6.0)
[2024-11-21 08:38] LABS: Hematocrit 43.6 % (41-53); Hemoglobin 14.8 g/dL (13.5-17.5)
[2024-11-21 08:39] LABS: Cholesterol 122 mg/dL (140-199); HDL Cholesterol 46 mg/dL (40-60); LDL Cholesterol Calculated 54 mg/dL (<100); Triglycerides 109 mg/dL (35-150)
[2024-11-21 08:54] LABS: Vitamin D 25 Hydroxy (D3) 33.4 ng/mL (30.0-100.0)
== END ==
PROVIDERS: PCP Internal Medicine; Visit Provider Internal Medicine
DX: R73.01 Impaired fasting glucose (principal); E78.5 Hyperlipidemia, unspecified; E55.9 Vitamin D deficiency, unspecified
CPT/HCPCS: 36415; 80061; 82306; 83036; 85014; 85018

== ENCOUNTER → 2025-04-25 13:32 | Outpatient (CLI) | payer OTHER, SELFPAY ==
[2023-12-28 14:37] VITALS: BMI 31.7
[2025-04-25 14:37] LABS: Blood Urea Nitrogen 28 mg/dL (9-20); Calcium 9.6 mg/dL (8.4-10.2); Carbon Dioxide 27 mmol/L (22-32); Chloride 96 mmol/L (98-107); Estimated Glomerular Filt Rate 38 mL/min (>60); Glucose 123 mg/dL (70-99); HEMOLYSIS < 15 (0-50); Potassium 4.7 mmol/L (3.4-5.1); Sodium 135 mmol/L (137-145)
[2025-04-25 14:55] LABS: Vitamin D 25 Hydroxy (D3) 71.8 ng/mL (30.0-100.0)
[2025-05-04 16:11] LABS: 1,25-Dihydroxy, Vitamin D-2 21 pg/mL (.)
== END ==
PROVIDERS: PCP Internal Medicine; Referring Provider Internal Medicine; Visit Provider Internal Medicine
DX: E55.9 Vitamin D deficiency, unspecified (principal); E78.5 Hyperlipidemia, unspecified
CPT/HCPCS: 36415; 80048; 82306; 82652